=== PATIENT | male | born 1990 | race American Indian/Alaskan Native ===

== ENCOUNTER 2021-01-23 10:13 | Inpatient (IN) | payer OTHER ==
[2021-01-23] MEDS ORDERED: SODIUM CHLORIDE 0.9% 1000 ML 1,000 ML IV ONE ×3 (11:32→17:47)
[2021-01-23] MEDS ORDERED: ONDANSETRON 4 MG/2 ML INJ IV ONE (11:32)
[2021-01-23] MEDS ORDERED: cloNIDine 0.2 MG TAB PO ONE (11:51)
--- NOTE | 2021-01-23 11:55 | Emergency Department Report ---
ED General Adult HPI - General Chief complaint: High BP Stated complaint: HIGH BLOOD PRESSURE,VOMITTING,VISION,IMBALANCE Time Seen by Provider: 01/23/21 11:14 Source: patient Mode of arrival: Ambulatory Limitations: No Limitations - History of Present Illness Initial comments: Patient is a 30-year-old male presents emergency room with complaints of not feeling well for few days. He has associated nausea, vomiting, abdominal cramping. He states he is also had a mild dry cough and subjective fever. He denies any known sick contacts. He states he recently traveled to [place]. He has not been vaccinated for COVID-19. He has not been tested for COVID-19 since becoming sick. He denies any chest pain or shortness of breath patient denies any past medical history. He states he has never been diagnosed with high blood pressure. He denies any medication allergies. Severity scale (0 -10): 0 - Related Data Home Medications Medication Instructions Recorded Confirmed Last Taken No Known Home Medications [No 01/23/21 01/23/21 Unknown Reported Home Medications] Allergies Allergy/AdvReac Type Severity Reaction Status Date / Time No Known Allergies Allergy Verified 01/23/21 10:18 ED Review of Systems ROS: Stated complaint: HIGH BLOOD PRESSURE,VOMITTING,VISION,IMBALANCE Other details as noted in HPI Comment: All other systems reviewed and negative ED Past Medical Hx - Medications Home Medications: Home Medications Medication Instructions Recorded Confirmed Last Taken Type No Known Home Medications [No 01/23/21 01/23/21 Unknown History Reported Home Medications] ED Physical Exam - General Limitations: No Limitations General appearance: alert, in no apparent distress - Head Head exam: Present: atraumatic, normocephalic - Eye Eye exam: Present: normal appearance - ENT ENT exam: Present: mucous membranes moist - Respiratory Respiratory exam: Present: normal lung sounds bilaterally. Absent: respiratory distress, wheezes, rales, rhonchi, stridor, chest wall tenderness, accessory muscle use, decreased breath sounds, prolonged expiratory - Cardiovascular Cardiovascular Exam: Present: regular rate, normal rhythm, normal heart sounds. Absent: systolic murmur, diastolic murmur, rubs, gallop - GI/Abdominal GI/Abdominal exam: Present: soft, normal bowel sounds. Absent: distended, tenderness, guarding, rebound, rigid - Neurological Exam Neurological exam: Present: alert, oriented X3 - Psychiatric Psychiatric exam: Present: normal affect, normal mood - Skin Skin exam: Present: warm, dry, intact ED Course Vital Signs 01/23/21 01/23/21 01/23/21 10:19 11:36 11:42 Temperature 99.1 F 99.1 F Pulse Rate 98 H 99 H Respiratory 20 16 Rate Blood Pressure 209/150 Blood Pressure 197/136 [Right] O2 Sat by Pulse 100 99 100 Oximetry 01/23/21 01/23/21 01/23/21 12:16 14:41 14:49 Temperature 98.4 F Pulse Rate 97 H 98 H 98 H Respiratory 18 Rate Blood Pressure 198/136 208/144 Blood Pressure 208/144 [Right] O2 Sat by Pulse 100 Oximetry 01/23/21 18:37 Temperature Pulse Rate 103 H Respiratory 17 Rate Blood Pressure Blood Pressure 190/124 [Right] O2 Sat by Pulse 98 Oximetry - Consultations Consultation #1: 01/23/21 14:[address] Vaughn nephrology who advised to repeat BMP and he will consult on patient 01/23/21 16:[address] Ribera, hospitalist who will accept and resume care of patient, will admit to hospitalist service, advised to admit to telemetry ED Medical Decision Making - Lab Data Result diagrams: 01/23/21 13:43 01/23/21 14:58 Lab Results 01/23/21 01/23/21 01/23/21 Range/Units 13:43 13:43 14:58 WBC 14.2 H (4.5-11.0) K/mm3 RBC 2.44 L (3.65-5.03) M/mm3 Hgb 7.6 L (11.8-15.2) gm/dl Hct 22.6 L (35.5-45.6) % MCV 93 (84-94) fl MCH 31 (28-32) pg MCHC 34 (32-34) % RDW 16.0 H (13.2-15.2) % Plt Count 225 (140-440) K/mm3 Add Manual Diff Complete Seg Neuts % (Manual) 88 H (40.0-70.0) % Lymphocytes % (Manual) 6 L (13.4-35.0) % Monocytes % (Manual) 3 (0.0-7.3) % Eosinophils % (Manual) 2 (0.0-4.3) % Nucleated RBC % Not Reportable Seg Neutrophils # Man 12.4 H (1.8-7.7) K/mm3 Lymphocytes # (Manual) 0.8 L (1.2-5.4) K/mm3 Monocytes # (Manual) 0.4 (0.0-0.8) K/mm3 Eosinophils # (Manual) 0.2 (0.0-0.4) K/mm3 WBC Morphology Not Reportable Hypersegmented Neuts Not Reportable Hyposegmented Neuts Not Reportable Hypogranular Neuts Not Reportable Smudge Cells Not Reportable Toxic Granulation Not Reportable Toxic Vacuolation Not Reportable Dohle Bodies Not Reportable Pelger-Huet Anomaly Not Reportable Jerry Rods Not Reportable Platelet Estimate Consistent w auto Clumped Platelets Not Reportable Plt Clumps, EDTA Not Reportable Large Platelets Few Giant Platelets Not Reportable Platelet Satelliting Not Reportable Plt Morphology Comment Not Reportable RBC Morphology Not Reportable Dimorphic RBCs Not Reportable Polychromasia Not Reportable Hypochromasia Not Reportable Poikilocytosis Not Reportable Anisocytosis Not Reportable Microcytosis Not Reportable Macrocytosis Not Reportable Spherocytes Not Reportable Pappenheimer Bodies Not Reportable Sickle Cells Not Reportable Target Cells Not Reportable Tear Drop Cells Not Reportable Ovalocytes Not Reportable Helmet Cells Not Reportable [place] Bodies Not Reportable [place] Rings Not Reportable Shayna Cells Not Reportable Bite Cells Not Reportable Crenated Cell Not Reportable Elliptocytes Not Reportable Acanthocytes (Spur) Not Reportable Rouleaux Not Reportable Hemoglobin C Crystals Not Reportable Schistocytes 2+ Malaria parasites Not Reportable Humberto Bodies Not Reportable Hem Pathologist Commnt No Sodium 126 L 128 L (137-145) mmol/L Potassium 3.8 3.6 (3.6-5.0) mmol/L Chloride 79.6 L 85.8 L (98-107) mmol/L Carbon Dioxide 21 L 20 L (22-30) mmol/L Anion Gap 29 30 mmol/L BUN 144 H 143 H (9-20) mg/dL Creatinine 40.4 H 41.8 H (0.8-1.3) mg/dL Estimated GFR 2 1 ml/min BUN/Creatinine Ratio 4 3 % Glucose 112 H 127 H (75-100) mg/dL Calcium 7.8 L 7.2 L (8.4-10.2) mg/dL Total Bilirubin 0.70 (0.1-1.2) mg/dL AST 7 (5-40) units/L ALT 6 L (7-56) units/L Alkaline Phosphatase 60 (35-129) units/L Total Protein 6.5 (6.3-8.2) g/dL Albumin 3.8 L (3.9-5) g/dL Albumin/Globulin Ratio 1.4 % Lipase 131 H (13-60) units/L Vital Signs 01/23/21 01/23/21 01/23/21 10:19 11:36 11:42 Temperature 99.1 F 99.1 F Pulse Rate 98 H 99 H Respiratory 20 16 Rate Blood Pressure 209/150 Blood Pressure 197/136 [Right] O2 Sat by Pulse 100 99 100 Oximetry 01/23/21 01/23/21 01/23/21 12:16 14:41 14:49 Temperature 98.4 F Pulse Rate 97 H 98 H 98 H Respiratory 18 Rate Blood Pressure 198/136 208/144 Blood Pressure 208/144 [Right] O2 Sat by Pulse 100 Oximetry 01/23/21 18:37 Temperature Pulse Rate 103 H Respiratory 17 Rate Blood Pressure Blood Pressure 190/124 [Right] O2 Sat by Pulse 98 Oximetry - Radiology Data Radiology results: report reviewed Ordering Physician: LAYA GILMORE Date of Service: 01/23/21 Procedure(s): XR chest routine 2V Accession Number(s): [id number] cc: LAYA GILMORE Fluoro Time In Minutes: CHEST 2 VIEWS INDICATION / CLINICAL INFORMATION: cough. COMPARISON: None available. FINDINGS: SUPPORT DEVICES: None. HEART / MEDIASTINUM: No significant abnormality. LUNGS / PLEURA: No significant pulmonary or pleural abnormality. No pneumothorax. ADDITIONAL FINDINGS: No significant additional findings. IMPRESSION: 1. No acute findings. Signer Name: Josemanuel Delaney MD Signed: 01/23/2021 11:58 AM Workstation Name: [id number] Transcribed By: LUKE Dictated By: JOSEMANUEL DELANEY MD Electronically Authenticated By: JOSEMANUEL DELANEY MD Signed Date/Time: 01/23/211157 DD/ 57 TD/TT: Ordering Physician: LAYA GILMORE Date of Service: 01/23/21 Procedure(s): CT head/brain wo con Accession Number(s): [id number] cc: LAYA GILMORE CT head/brain wo con INDICATION / CLINICAL INFORMATION: 30 years Male; HTN emergency. TECHNIQUE: Routine CT head without contrast. All CT scans at this location are performed using CT dose reduction for ALARA by means of automated exposure control. COMPARISON: None. FINDINGS: BRAIN / INTRACRANIAL CONTENTS: No acute hemorrhage, mass effect, midline shift, hydrocephalus, or acute, large territorial infarct. No signs of significant atrophy or chronic infarct. No significant white matter abnormality seen. CRANIOCERVICAL JUNCTION: No significant abnormality. ORBITS: No significant abnormality of visualized orbits. SINUSES / MASTOIDS: Visualized paranasal sinuses and mastoid air cells are essentially clear. ADDITIONAL FINDINGS: None. IMPRESSION: 1. No focal mass, hemorrhage, hydrocephalus, or acute, large territorial infarct. Signer Name: Leroy Land MD, III Signed: 01/23/2021 3:21 PM Workstation Name: [id number] Transcribed By: HR Dictated By: Leroy Land MD Electronically Authenticated By: Leroy Land MD Signed Date/Time: 01/23/21 152 DD/ 151 TD/TT: Ordering Physician: LAYA GILMORE Date of Service: 01/23/21 Procedure(s): CT abdomen pelvis wo con Accession Number(s): [id number] cc: LAYA GILMORE CT ABDOMEN AND PELVIS WITHOUT CONTRAST HISTORY: Abdominal pain, nausea and vomiting, anemia, leukocytosis.. COMPARISON: None. TECHNIQUE: CT images of the abdomen and pelvis were obtained without administration of intravenous contrast. All CT scans at this location are performed using CT dose reduction for ALARA by means of automated exposure control. FINDINGS: Limited evaluation of the lung bases shows faint densities in the right lung base, possibly infectious. There is a trace amount of fluid in the right paracolic gutter. This is most pronounced near the hepatic flexure. Questionable pericolonic fluid stranding is noted in this region and the appearance may represent some degree of colitis, possibly due to infectious or inflammatory change. No evidence of free intraperitoneal gas. Mild anasarca within the mesenteric fat and to a lesser extent subcutaneous tissues of the abdomen. The pancreas is poorly defined and appears edematous, particularly the pancreatic head. Although, this is poorly evaluated on noncontrast exam. The liver, kidneys, spleen, adrenal glands, and gallbladder are unremarkable. The appendix is visualized and is normal in appearance. Urinary bladder is largely collapsed which limits evaluation, however there appears to be circumferential urinary bladder wall thickening.. Osseous structures show no evidence of acute fracture or aggressive osseous destructive lesion. The lack of intravenous and oral contrast limits evaluation of solid parenchymal organs, vasculature, and gastrointestinal tract. IMPRESSION: The pancreas appears poorly defined and mildly edematous in appearance, p articularly the pancreatic head. This is not well evaluated on noncontrast exam. Recommend clinical correlation with any f indings of pancreatitis with consideration for repeat CT with IV contrast if clinically indicated. Trace amount of fluid in the right pericolic gutter near the hepatic flexure. This may be reactive due to the aforementioned pancreatic changes. Some degree of colitis, possibly due to infectious or inflammatory change may be present as well. No distended loops of intestines to suggest obstruction. Faint airspace disease in the right lung base is concerning for infection. Suspected circumferential wall thickening of the urinary bladder, possibly representing cystitis. Signer Name: Josemanuel Delaney MD Signed: 01/23/2021 3:28 PM Workstation Name: [id number] Transcribed By: LUKE Dictated By: JOSEMANUEL DELANEY MD Electronically Authenticated By: JOSEMANUEL DELANEY MD Signed Date/Time: 01/23/21 1528 DD/ 1520 TD/TT: - Medical Decision Making Patient is a 30-year-old male presents emergency room with complaints of not feeling well for few days. He has associated nausea, vomiting, abdominal cramping. He states he is also had a mild dry cough and subjective fever. He denies any known sick contacts. He states he recently traveled to [place]. He has not been vaccinated for COVID-19. He has not been tested for COVID-19 since becoming sick. He denies any chest pain or shortness of breath patient denies any past medical history. He states he has never been diagnosed with high blood pressure. He denies any medication allergies. Initial vitals are significant for elevated blood pressure. Patient initially given p.o. clonidine but had vomiting shortly after and was unable to tolerate it. Nurse had difficulty obtaining IV line, IV nurse was consulted to place line. IV was obtained and patient was given IV fluids, nausea medication, IV antihypertensive. Lab significant for leukocytosis at 14.2, anemia with hemoglobin of 7.6 and hematocrit of 22.6, hyponatremia at 128, anion gap of 30, creatinine of 41.8, BUN of 144, GFR of 1, hypoglycemia at 7 and lipase at 131. Chest x-ray 1. No acute findings. CT head due to hypertensive emergency 1. No focal mass, hemorrhage, hydrocephalus, or acute, large territorial infarct. CT abdomen pelvis without contrast The pancreas appears poorly defined and mildly edematous in appearance, particularly the pancreatichead. This is not well evaluated on noncontrast exam. Recommend clinical correlation with any findings of pancreatitis with consideration for repeat CT with IV contrast if clinically indicated. Trace amount of fluid in the right pericolic gutter near the hepatic flexure. This may be reactive due to the aforementioned pancreatic changes. Some degree of colitis, possibly due to infectious or inflammatory change may be present as well. No distended loops of intestines to suggest obstruction. Faint airspace disease in the right lung base is concerning for infection. Suspected circumferential wall thickening of the urinary bladder, possibly representing cystitis. Patient given 2 g IV ceftriaxone to cover for PNA and cystitis. Spoke to Dr. Vaughn nephrology who advised to repeat BMP and he will consult on patient. Repeat BMP confirms diagnosis.Spoke to Dr. Ribera, hospitalist who will accept and resume care of patient, will admit to hospitalist service, advised to admit to telemetry. Discussed case with Dr. Kraft, ER attending who is agreeable with plan. Discussed findings with patient who is agreeable with admission. Critical Care Time: Yes Critical care time in (mins) excluding proc time.: 35 Critical care attestation.: If time is entered above; I have spent that time in minutes in the direct care of this critically ill patient, excluding procedure time. Critical Care Time: Critical care time includes interpretation of laboratory and diagnostic studies, consultations, reexaminations ED Disposition Clinical Impression: Hypertensive emergency, Hyponatremia, Hypocalcemia Abdominal pain Qualifiers: Abdominal location: generalized Qualified Code(s): R10.84 - Generalized abdominal pain Nausea & vomiting Qualifiers: Vomiting type: unspecified Qualified Code(s): R11.2 - Nausea with vomiting, unspecified Acute renal failure Qualifiers: Acute renal failure type: unspecified Qualified Code(s): N17.9 - Acute kidney failure, unspecified Leukocytosis Qualifiers: Leukocytosis type: unspecified Qualified Code(s): D72.829 - Elevated white blood cell count, unspecified Anemia Qualifiers: Anemia type: unspecified type Qualified Code(s): D64.9 - Anemia, unspecified Pancreatitis Qualifiers: Chronicity: acute Pancreatitis type: unspecified pancreatitis type Acute pancreatitis complication: unspecified Qualified Code(s): K85.90 - Acute pancreatitis without necrosis or infection, unspecified Pneumonia Qualifiers: Pneumonia type: due to unspecified organism Laterality: right Lung location: lower lobe of lung Qualified Code(s): J18.9 - Pneumonia, unspecified organism Disposition: 09 ADMITTED INPATIENT Is pt being admited?: Yes Does the pt Need Aspirin: No Condition: Serious Time of Disposition: 16:45
--- NOTE | 2021-01-23 12:03 | XRay Report ---
CHEST 2 VIEWS INDICATION / CLINICAL INFORMATION: cough. COMPARISON: None available. FINDINGS: SUPPORT DEVICES: None. HEART / MEDIASTINUM: No significant abnormality. LUNGS / PLEURA: No significant pulmonary or pleural abnormality. No pneumothorax. ADDITIONAL FINDINGS: No significant additional findings. IMPRESSION: 1. No acute findings. Signer Name: Josemanuel Smith MD Signed: 01/23/2021 11:58 AM Workstation Name: [id number]
[2021-01-23 14:19] LABS: Hematocrit 22.6 % (35.5-45.6); Hemoglobin 7.6 gm/dl (11.8-15.2); Mean Corpuscular HGB Conc 34 % (32-34); Mean Corpuscular Volume 93 fl (84-94); Platelet Count 225 K/mm3 (140-440); Red Blood Count 2.44 M/mm3 (3.65-5.03)
[2021-01-23 14:30] LABS: Albumin 3.8 g/dL (3.9-5); Calcium 7.8 mg/dL (8.4-10.2)
--- NOTE | 2021-01-23 15:25 | Cat Scan Report ---
CT head/brain wo con INDICATION / CLINICAL INFORMATION: 30 years Male; HTN emergency. TECHNIQUE: Routine CT head without contrast. All CT scans at this location are performed using CT dos e reduction for ALARA by means of automated exposure control. COMPARISON: None. FINDINGS: BRAIN / INTRACRANIAL CONTENTS: No acute hemorrhage, mass effect, midline shift, hydrocephalus, or acu te, large territorial infarct. No signs of significant atrophy or chronic infarct. No significant whi te matter abnormality seen. CRANIOCERVICAL JUNCTION: No significant abnormality. ORBITS: No significant abnormality of visualized orbits. SINUSES / MASTOIDS: Visualized paranasal sinuses and mastoid air cells are essentially clear. ADDITIONAL FINDINGS: None. IMPRESSION: 1. No focal mass, hemorrhage, hydrocephalus, or acute, large territorial infarct. Signer Name: Leroy Land MD, III Signed: 01/23/2021 3:21 PM Workstation Name: [id number]
[2021-01-23 15:33] LABS: Calcium 7.2 mg/dL (8.4-10.2)
--- NOTE | 2021-01-23 15:33 | Cat Scan Report ---
CT ABDOMEN AND PELVIS WITHOUT CONTRAST HISTORY: Abdominal pain, nausea and vomiting, anemia, leukocytosis.. COMPARISON: None. TECHNIQUE: CT images of the abdomen and pelvis were obtained without administration of intravenous co ntrast. All CT scans at this location are performed using CT dose reduction for ALARA by means of au tomated exposure control. FINDINGS: Limited evaluation of the lung bases shows faint densities in the right lung base, possibly infectiou s. There is a trace amount of fluid in the right paracolic gutter. This is most pronounced near the hepa tic flexure. Questionable pericolonic fluid stranding is noted in this region and the appearance may represent some degree of colitis, possibly due to infectious or inflammatory change. No evidence of f ree intraperitoneal gas. Mild anasarca within the mesenteric fat and to a lesser extent subcutaneous tissues of the abdomen. The pancreas is poorly defined and appears edematous, particularly the pancreatic head. Although, thi s is poorly evaluated on noncontrast exam. The liver, kidneys, spleen, adrenal glands, and gallbladder are unremarkable. The appendix is visuali zed and is normal in appearance. Urinary bladder is largely collapsed which limits evaluation, howeve r there appears to be circumferential urinary bladder wall thickening.. Osseous structures show no evidence of acute fracture or aggressive osseous destructive lesion. The lack of intravenous and oral contrast limits evaluation of solid parenchymal organs, vasculature, and gastrointestinal tract. IMPRESSION: The pancreas appears poorly defined and mildly edematous in appearance, particularly the pancreatic h ead. This is not well evaluated on noncontrast exam. Recommend clinical correlation with any findings of pancreatitis with consideration for repeat CT with IV contrast if clinically indicated. Trace amount of fluid in the right pericolic gutter near the hepatic flexure. This may be reactive du e to the aforementioned pancreatic changes. Some degree of colitis, possibly due to infectious or inf lammatory change may be present as well. No distended loops of intestines to suggest obstruction. Faint airspace disease in the right lung base is concerning for infection. Suspected circumferential wall thickening of the urinary bladder, possibly representing cystitis. Signer Name: Josemanuel Smith MD Signed: 01/23/2021 3:28 PM Workstation Name: [id number]
--- NOTE | 2021-01-23 15:40 | Consultation ---
History of Present Illness - Reason for Consult Consult date: 01/23/21 acute renal failure - History of Present Illness This is a 30 year old male who presents to the E.R with a chief complaint of nausea, vomiting, abdominal cramping and fever for couple days. 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 CT scan of Abdomen showed questionable pancreatitis and colitis. Pertinent labs revealed an elevated serum creatinine of 40.4 and BUN of 144 on admission. Repeat labs are pending. Baseline serum creatinine unknown. States he is not aware of having any prior renal disease. Patient noted to also be in Hypertensive urgency with SBP in the 190's-200's. We are being consulted for management of this patient's Acute Renal Failure possible CKD. Past History Past Medical History: hypertension Past Surgical History: No surgical history Social history: no significant social history Family history: no significant family history Medications and Allergies Allergies Allergy/AdvReac Type Severity Reaction Status Date / Time No Known Allergies Allergy Verified 01/23/21 10:18 Home Medications Medication Instructions Recorded Confirmed Last Taken Type No Known Home Medications [No 01/23/21 01/23/21 Unknown History Reported Home Medications] Active Meds: Active Medications Sodium Chloride (Nacl 0.9% 1000 Ml) 1,000 mls @ 999 mls/hr IV BOLUS ONE Stop: 01/23/21 15:53 Review of Systems Constitutional: fever, fatigue, no weight loss, no weight gain, no chills, no sweats, no weakness, no malaise Ears, nose, mouth and throat: no ear pain, no ear discharge, no tinnitis, no decreased hearing, no nose pain, no nasal congestion Cardiovascular: no chest pain, no orthopnea, no palpitations, no rapid/irregular heart beat, no edema, no syncope, no lightheadedness Respiratory: no cough with sputum, no hemoptysis, no shortness of breath, no dyspnea on exertion Gastrointestinal: abdominal pain, nausea, vomiting, no diarrhea, no constipation, no change in bowel habits, no hematemesis, no coffee ground emesis Genitourinary Male: no hematuria, no flank pain, no discharge, no urinary frequency, no urinary hesitancy Rectal: no pain, no incontinence, no bleeding Musculoskeletal: no neck pain, no shooting arm pain, no arm numbness/tingling, no low back pain, no shooting leg pain, no leg numbness/tingling Integumentary: no rash, no pruritis, no redness, no sores, no wounds Neurological: no head injury, no transient paralysis, no paralysis, no weakness, no parathesias, no numbness, no tingling Psychiatric: no anxiety, no memory loss, no change in sleep habits, no sleep disturbances, no insomnia, no hypersomnia Endocrine: no cold intolerance, no heat intolerance, no polyphagia, no excessive thirst, no polydipsia, no polyuria Hematologic/Lymphatic: no easy bruising, no easy bleeding, no lymphadenopathy, no lymphedema Exam - Vital Signs Vital signs: Vital Signs Temp Pulse Resp BP Pulse Ox 99.1 F 98 H 20 209/150 100 01/23/21 10:19 01/23/21 10:19 01/23/21 10:19 01/23/21 10:19 01/23/21 10:19 - General Appearance General appearance: well-developed, appears stated age EENT: ATNC, PERRL, hearing intact, vision intact Neck: Present: neck supple Respiratory: Decreased Breath Sounds Heart: S1S2 Gastrointestinal: Present: normoactive bowel sounds Integumentary: warm and dry Neurologic: alert and oriented x3 Musculoskeletal: Present: other (No edema) Results - Lab Results 01/23/21 13:43 01/23/21 14:58 Most recent lab results Calcium 7.2 mg/dL (8.4-10.2) L 01/23/21 14:58 Assessment and Plan Assessment: Acute Renal Failure secondary to Ischemic ATN vs Prerenal Uncontrolled Hypertension Nausea/Vomiting/ Abdominal Pain Questionable Pancreatitis and Colitis Leukocytosis Hyponatremia Plan: Renal labs done early this morning showed serum creatinine 40.4 and BUN 144, rep eat labs are pending Baseline serum creatinine unknown CXR is clear Start NS@ 75 ml/hr Obtain renal ultrasound to rule out obstruction Obtain urine lytes, protein and eosinophils Hypertension- start oral anti-hypertensive agents when taking po intake IV anti-hypertensive agents as needed Obtain daily weights Monitor I/O's daily Renally dose medications Avoid nephrotoxic agents Continue to monitor renal function closely Plan of care reviewed by Dr. Cunningham
[2021-01-23] MEDS ORDERED: cefTRIAXone/NS 2 GM/100 ML 2 GM/100 ML BAG IV ONE (15:57)
[2021-01-23 16:45] LABS: Eosinophils % (Manual) 2 % (0.0-4.3); Monocytes % (Manual) 3 % (0.0-7.3); Schistocytes 2+
[2021-01-23] MEDS ORDERED: SODIUM CHLORIDE 0.9% 1000 ML 1,000 ML IV SCH (16:45)
[2021-01-23 16:46] LABS: Large Platelets Few; Platelet Estimate Consistent w Auto
[2021-01-23] MEDS ORDERED: ONDANSETRON 4 MG/2 ML INJ IV PRN (17:40)
[2021-01-23] MEDS ORDERED: METOCLOPRAMIDE 10 MG/2 ML INJ IV PRN (17:40)
[2021-01-23] MEDS ORDERED: ACETAMINOPHEN 325 MG TAB PO PRN (17:40)
[2021-01-23] MEDS ORDERED: NIFEdipine XL 60 MG TAB PO ONE (17:55)
--- NOTE | 2021-01-23 18:06 | History and Physical Report ---
History of Present Illness Date of examination: 01/23/21 Date of admission: 01/23/2021 Chief complaint: Nausea vomiting and abdominal pain for 3 to 4 days. Generalized weakness for more than a week. History of present illness: 30-year-old male with no significant past medical history comes in for nausea vomiting and abdominal cramps for 3 to 4 days. Also decreased urination. Generalized weakness for more than a week. No exposure to any sick contacts. Patient is not vaccinated with Covid. Patient went to [place] recently. Denies any chest pain or shortness of breath. No Covid test done recently. No medications or medication allergies. Not a known hypertensive. No fever or chills. Patient is a poor historian. No history of hypertension. Last physical was done in 2014. No follow-up with any physician for the last 6 years. Past History Past Medical History: hypertension Past Surgical History: No surgical history Social history: no significant social history Family history: hypertension Medications and Allergies Allergies Allergy/AdvReac Type Severity Reaction Status Date / Time No Known Allergies Allergy Verified 01/23/21 10:18 Home Medications Medication Instructions Recorded Confirmed Last Taken Type No Known Home Medications [No 01/23/21 01/23/21 Unknown History Reported Home Medications] Active Meds: Active Medications Sodium Chloride (Nacl 0.9% 1000 Ml) 1,000 mls @ 75 mls/hr IV DIRECT SYDNIE Review of Systems All systems: negative Constitutional: anorexia, fatigue, weakness, malaise, lethargy, poor appetite, no fever, no chills Ears, nose, mouth and throat: no ear pain, no ear discharge, no tinnitis, no decreased hearing, no nose pain, no nasal congestion Cardiovascular: shortness of breath, dyspnea on exertion, no chest pain, no orthopnea, no palpitations, no rapid/irregular heart beat, no edema, no syncope, no lightheadedness Respiratory: shortness of breath, dyspnea on exertion, no cough, no cough with sputum, no excessive sputum, no hemoptysis Gastrointestinal: abdominal pain, nausea, vomiting, no diarrhea, no constipation, no change in bowel habits, no hematemesis, no coffee ground emesis Genitourinary Male: other (Decreased urination), no dysuria, no hematuria, no flank pain, no discharge, no urinary frequency, no urinary hesitancy, no nocturia, no incontinence, no erectile dysfunction, no genital pain Rectal: no pain, no incontinence, no bleeding Musculoskeletal: no neck stiffness, no neck pain, no shooting arm pain, no arm numbness/tingling, no low back pain, no shooting leg pain, no leg numbness/tingling, no redness of joints Integumentary: no rash, no pruritis, no redness, no sores, no wounds, no jaundice, no boils, no blisters Neurological: no head injury, no transient paralysis, no paralysis, no weakness, no parathesias, no numbness, no tingling, no seizures, no syncope, no tremors, no ataxia, no lack of coordination Psychiatric: no anxiety, no memory loss, no change in sleep habits, no sleep disturbances, no insomnia, no hypersomnia, no change in appetite, no change in libido, no suicidal ideation, no disorientation, no hallucinations Endocrine: no cold intolerance, no heat intolerance, no polyphagia, no excessive thirst Hematologic/Lymphatic: no easy bruising, no easy bleeding Allergic/Immunologic: no urticaria, no allergic rhinitis, no wheezing Exam - Constitutional Vitals: Temp Pulse Resp BP Pulse Ox 98.4 F 98 H 18 208/144 100 01/23/21 14:41 01/23/21 14:49 01/23/21 14:41 01/23/21 14:49 01/23/21 14:41 General appearance: Present: mild distress, well-nourished - EENT Eyes: Present: PERRL ENT: hearing intact, clear oral mucosa - Neck Neck: Present: supple, normal ROM - Respiratory Respiratory effort: normal Respiratory: bilateral: CTA - Cardiovascular Heart rate: 90 Rhythm: regular Heart Sounds: Present: S1 & S2. Absent: rub, click - Extremities Extremities: no ischemia, pulses intact, pulses symmetrical, No edema Peripheral Pulses: within normal limits - Abdominal General gastrointestinal: Present: soft, non-tender, non-distended, normal bowel sounds Male genitourinary: Present: normal - Rectal Rectal Exam: deferred - Integumentary Integumentary: Present: clear, warm, dry - Musculoskeletal Musculoskeletal: gait normal, strength equal bilaterally - Psychiatric Psychiatric: appropriate mood/affect, intact judgment & insight - Neurologic Neurologic: CNII-XII intact, moves all extremities - Allied Health Allied health notes reviewed: nursing HEART Score - HEART Score History: Slightly suspicious EKG: Normal Age: < 45 Risk factors: 1-2 risk factors Troponin: < normal limit HEART Score: 1 - Critical Actions Critical Actions: 0-3 pts:0.9-1.7%risk of adverse cardiac event.Candidate for discharge Results - Labs CBC & Chem 7: 01/23/21 13:43 01/23/21 14:58 Labs: Laboratory Last Values WBC 14.2 K/mm3 (4.5-11.0) H 01/23/21 13:43 RBC 2.44 M/mm3 (3.65-5.03) L 01/23/21 13:43 Hgb 7.6 gm/dl (11.8-15.2) L 01/23/21 13:43 Hct 22.6 % (35.5-45.6) L 01/23/21 13:43 MCV 93 fl (84-94) 01/23/21 13:43 MCH 31 pg (28-32) 01/23/21 13:43 MCHC 34 % (32-34) 01/23/21 13:43 RDW 16.0 % (13.2-15.2) H 01/23/21 13:43 Plt Count 225 K/mm3 (140-440) 01/23/21 13:43 Add Manual Diff Complete 01/23/21 13:43 Seg Neuts % (Manual) 88 % (40.0-70.0) H 01/23/21 13:43 Lymphocytes % (Manual) 6 % (13.4-35.0) L 01/23/21 13:43 Monocytes % (Manual) 3 % (0.0-7.3) 01/23/21 13:43 Eosinophils % (Manual) 2 % (0.0-4.3) 01/23/21 13:43 Nucleated RBC % Not Reportable 01/23/21 13:43 Seg Neutrophils # Man 12.4 K/mm3 (1.8-7.7) H 01/23/21 13:43 Lymphocytes # (Manual) 0.8 K/mm3 (1.2-5.4) L 01/23/21 13:43 Monocytes # (Manual) 0.4 K/mm3 (0.0-0.8) 01/23/21 13:43 Eosinophils # (Manual) 0.2 K/mm3 (0.0-0.4) 01/23/21 13:43 WBC Morphology Not Reportable 01/23/21 13:43 Hypersegmented Neuts Not Reportable 01/23/21 13:43 Hyposegmented Neuts Not Reportable 01/23/21 13:43 Hypogranular Neuts Not Reportable 01/23/21 13:43 Smudge Cells Not Reportable 01/23/21 13:43 Toxic Granulation Not Reportable 01/23/21 13:43 Toxic Vacuolation Not Reportable 01/23/21 13:43 Dohle Bodies Not Reportable 01/23/21 13:43 Pelger-Huet Anomaly Not Reportable 01/23/21 13:43 Jerry Rods Not Reportable 01/23/21 13:43 Platelet Estimate Consistent w auto 01/23/21 13:43 Clumped Platelets Not Reportable 01/23/21 13:43 Plt Clumps, EDTA Not Reportable 01/23/21 13:43 Large Platelets Few 01/23/21 13:43 Giant Platelets Not Reportable 01/23/21 13:43 Platelet Satelliting Not Reportable 01/23/21 13:43 Plt Morphology Comment Not Reportable 01/23/21 13:43 RBC Morphology Not Reportable 01/23/21 13:43 Dimorphic RBCs Not Reportable 01/23/21 13:43 Polychromasia Not Reportable 01/23/21 13:43 Hypochromasia Not Reportable 01/23/21 13:43 Poikilocytosis Not Reportable 01/23/21 13:43 Anisocytosis Not Reportable 01/23/21 13:43 Microcytosis Not Reportable 01/23/21 13:43 Macrocytosis Not Reportable 01/23/21 13:43 Spherocytes Not Reportable 01/23/21 13:43 Pappenheimer Bodies Not Reportable 01/23/21 13:43 Sickle Cells Not Reportable 01/23/21 13:43 Target Cells Not Reportable 01/23/21 13:43 Tear Drop Cells Not Reportable 01/23/21 13:43 Ovalocytes Not Reportable 01/23/21 13:43 Helmet Cells Not Reportable 01/23/21 13:43 [place] Bodies Not Reportable 01/23/21 13:43 [place] Rings Not Reportable 01/23/21 13:43 [place] Cells Not Reportable 01/23/21 13:43 Bite Cells Not Reportable 01/23/21 13:43 Crenated Cell Not Reportable 01/23/21 13:43 Elliptocytes Not Reportable 01/23/21 13:43 Acanthocytes (Spur) Not Reportable 01/23/21 13:43 Rouleaux Not Reportable 01/23/21 13:43 Hemoglobin C Crystals Not Reportable 01/23/21 13:43 Schistocytes 2+ 01/23/21 13:43 Malaria parasites Not Reportable 01/23/21 13:43 Humberto Bodies Not Reportable 01/23/21 13:43 Hem Pathologist Commnt No 01/23/21 13:43 Sodium 128 mmol/L (137-145) L 01/23/21 14:58 Potassium 3.6 mmol/L (3.6-5.0) 01/23/21 14:58 Chloride 85.8 mmol/L (98-107) L 01/23/21 14:58 Carbon Dioxide 20 mmol/L (22-30) L 01/23/21 14:58 Anion Gap 30 mmol/L 01/23/21 14:58 BUN 143 mg/dL (9-20) H 01/23/21 14:58 Creatinine 41.8 mg/dL (0.8-1.3) H 01/23/21 14:58 Estimated GFR 1 ml/min 01/23/21 14:58 BUN/Creatinine Ratio 3 % 01/23/21 14:58 Glucose 127 mg/dL (75-100) H 01/23/21 14:58 Calcium 7.2 mg/dL (8.4-10.2) L 01/23/21 14:58 Total Bilirubin 0.70 mg/dL (0.1-1.2) 01/23/21 13:43 AST 7 units/L (5-40) 01/23/21 13:43 ALT 6 units/L (7-56) L 01/23/21 13:43 Alkaline Phosphatase 60 units/L (35-129) 01/23/21 13:43 Total Protein 6.5 g/dL (6.3-8.2) 01/23/21 13:43 Albumin 3.8 g/dL (3.9-5) L 01/23/21 13:43 Albumin/Globulin Ratio 1.4 % 01/23/21 13:43 Lipase 131 units/L (13-60) H 01/23/21 13:43 - Imaging and Cardiology EKG: report reviewed Imaging and Cardiology: Chest CT The pancreas appears poorly defined and mildly edematous in appearance particularly the pancreatic head. This is not well evaluated on: Noncontrast exam. Will recommend clinical correlation with any findings of pancreatitis with consideration for repeat CT with IV contrast if clinically indicated Trace amount of fluid in the right pericolic gutter near the hepatic flexure This may be reactive due to the aforementioned pancreatic changes Some degree of colitis possibly due to infectious or inflammatory change may be present as well No distended loops of intestine to suggest of obstruction Faint airspace disease in the right lung bases concerning for infection Suspected circumferential wall thickening of the urinary bladder possibly representing cystitis Chest x-ray No acute findings Assessment and Plan Advance Directives: Yes (Full code) VTE prophylaxis?: Chemical Plan of care discussed with patient/family: Yes - Patient Problems (1) Hypertensive emergency Current Visit: Yes Status: Acute Plan to address problem: Patient does not have any history of hypertension. Patient initiated on hydralazine 50 every 8, Coreg twice a day at 12.5 mg and Procardia XL 60 mg once a day. Also IV hydralazine 10 mg every 3 as needed (2) MOHINDER (acute kidney injury) Current Visit: Yes Status: Acute Plan to address problem: Possible ATN versus chronic kidney disease resulting in end-stage renal disease IV fluids for now IV normal saline bolus given and continue normal saline at 75 mill per hour Recheck creatinine level (3) Hyponatremia Current Visit: Yes Status: Acute Plan to address problem: Probably dilutional (4) Anemia Current Visit: Yes Status: Chronic Qualifiers: Anemia type: due to chronic kidney disease Chronic kidney disease stage: stage 5, not on chronic dialysis Qualified Code(s): N18.5 - Chronic kidney disease, stage 5; D63.1 - Anemia in chronic kidney disease Plan to address problem: Probably ATN versus stage V chronic kidney disease May need Epogen Will defer to nephrology (5) DVT prophylaxis Current Visit: Yes Status: Acute Plan to address problem: On heparin and GI prophylaxis
[2021-01-23] MEDS: hydrALAZINE 25 MG TAB PO SCH ×2 (18:47→22:06)
[2021-01-23] MEDS: HYDROmorphone 1 MG/1 ML INJ IV PRN (22:07)
[2021-01-23] MEDS: cefTRIAXone/NS 1 GM/50 ML 1 GM/50 ML BAG IV SCH (22:19)
[2021-01-23] MEDS: hydrALAZINE 20 MG/1 ML INJ IV PRN (22:22)
[2021-01-24] MEDS: carvediloL 12.5 MG TAB PO SCH ×3 (02:20→21:50)
[2021-01-24] MEDS: HYDROmorphone 1 MG/1 ML INJ IV PRN ×3 (04:54→15:19)
[2021-01-24 05:30] LABS: Hematocrit 21.6 % (35.5-45.6); Hemoglobin 7.1 gm/dl (11.8-15.2); Mean Corpuscular HGB Conc 33 % (32-34); Mean Corpuscular Volume 94 fl (84-94); Platelet Count 194 K/mm3 (140-440); Red Blood Count 2.31 M/mm3 (3.65-5.03); Red Cell Distribution Width 16.2 % (13.2-15.2)
[2021-01-24] MEDS: hydrALAZINE 20 MG/1 ML INJ IV PRN ×2 (06:13→10:37)
[2021-01-24] MEDS: hydrALAZINE 25 MG TAB PO SCH ×3 (06:27→21:49)
[2021-01-24 07:04] LABS: Total Cells Counted 100
[2021-01-24 07:05] LABS: Hypochromasia Few; Platelet Estimate Consistent w Auto; Schistocytes 2+
--- NOTE | 2021-01-24 09:23 | Ultrasound Report ---
ULTRASOUND RENAL INDICATION / CLINICAL INFORMATION: renal failure. COMPARISON: CT scan dated 01/23/2021 FINDINGS: RIGHT KIDNEY: Length = 10.8 cm. - Echogenicity: Significantly increased - Cortical Thickness: Normal. - Hydronephrosis: None. - Cyst / Mass: None. - Stones: None seen. LEFT KIDNEY: Length = 11.4 cm. - Echogenicity: Significantly increased - Cortical Thickness: Normal. - Hydronephrosis: None. - Cyst / Mass: None. - Stones: None seen. URINARY BLADDER: No significant abnormality. FREE FLUID: None. ADDITIONAL FINDINGS: None. IMPRESSION: 1. Kidneys are echogenic which can be seen with medical renal disease. There is no hydronephrosis. No focal renal lesions are seen. Signer Name: Ron Washington MD Signed: 01/24/2021 9:18 AM Workstation Name: [id number]
--- NOTE | 2021-01-24 10:38 | Progress Note ---
Assessment and Plan Assessment: Acute Renal Failure secondary to Ischemic ATN vs Prerenal vs CKD stage 5 from Hypertensive Nephrosclerosis Uncontrolled Hypertension Nausea/Vomiting/ Abdominal Pain Questionable Pancreatitis and Colitis Leukocytosis Hyponatremia Hyperphosphatemia Anemia Plan: Renal labs reviewed. Serum creatinine 41.8 today and BUN is 155, yesterday's serum creatinine was 40.4 and BUN 144 Baseline serum creatinine unknown Renal Ultrasound shows- Medical renal disease. No Hydronephrosis Patient's renal function did not respond to IV hydration. Given his history of uncontrolled Hypertension, patient may likely have CKD stage 5 from Hypertensive Nephrosclerosis as renal ultrasound shows CKD changes to kidneys. Also phosphorus is elevated. Will check PTH levels. Given severe renal failure, we are recommending hemodialysis initiation for UF and clearance. Risks and benefits of hemodialysis explained to patient. Patient consented/agreed to hemodialysis inititation. His brother Dustin Aguilar was at bedside present for conversation. All questions answered. Vascular surgeon-Dr. Solitario consulted for perm-cath placement For further work-up, ordered ALAN, ANCA, Hep panel, C3, C4, Ch50, Anti-GBM, SPEP, serum free light chains CXR is clear On NS@ 75 ml/hr, will D/C now given Hypertension and plan to start on HD Urine lytes, protein and eosinophils-pending Hyperphosphatemia-Start Calcium Acetate 1300 mg po TID Anemia-Ordered iron and ferritin levels. May need LORNA. Obtain daily weights Monitor I/O's daily Renally dose medications Avoid nephrotoxic agents Assess dialysis needs daily Plan of care reviewed by Dr. Vaughn Subjective Date of service: 01/24/21 Principal diagnosis: Severe Renal Failure Interval history: Patient seen lying in bed. Brother Dustin Aguilar was at bedside. Objective - Vital Signs Vital signs: Vital Signs - 12hr 01/23/21 01/24/21 01/24/21 22:42 06:13 06:22 Pulse Rate 101 H 87 87 Respiratory 17 17 Rate Blood Pressure 179/111 189/114 Blood Pressure 191/123 [Right] O2 Sat by Pulse 100 96 Oximetry 01/24/21 01/24/21 01/24/21 06:27 06:30 06:46 Pulse Rate 82 90 90 Respiratory 14 17 Rate Blood Pressure 189/114 189/114 189/114 Blood Pressure [Right] O2 Sat by Pulse 96 96 Oximetry 01/24/21 01/24/2121 07:00 08:07 08:30 Pulse Rate 89 Respiratory 14 Rate Blood Pressure 185/101 188/105 228/126 Blood Pressure [Right] O2 Sat by Pulse 97 92 100 Oximetry 01/24/21 01/24/21 01/24/21 09:00 09:30 10:00 Pulse Rate Respiratory Rate Blood Pressure 230/133 224/134 213/123 Blood Pressure [Right] O2 Sat by Pulse 100 99 92 Oximetry - General Appearance General appearance: well-developed, appears stated age EENT: ATNC, PERRL, hearing intact, vision intact Neck: no JVD, supple Respiratory: Present: Decreased Breath Sounds Cardiology: S1S2 Gastrointestinal: normoactive bowel sounds Integumentary: warm and dry Neurologic: alert and oriented x3 Musculoskeletal: other (No edema) - Lab 01/24/21 04:52 01/24/21 04:52 Most recent lab results Calcium 7.0 mg/dL (8.4-10.2) L 01/24/21 04:52 Phosphorus 11.40 mg/dL (2.5-4.5) H 01/24/21 04:52 Medications & Allergies - Medications Allergies/Adverse Reactions: Allergies No Known Allergies Allergy (Verified 01/23/21 10:18) Home Medications: Home Medications Medication Instructions Recorded Confirmed Last Taken Type No Known Home Medications [No 01/23/21 01/23/21 Unknown History Reported Home Medications] Active Medications: Generic Name Dose Route Start Last Admin Trade Name Freq PRN Reason Stop Dose Admin Acetaminophen 650 mg 01/23/21 17:40 Acetaminophen 325 Mg Tab PO Q4H PRN Pain MILD(1-3)/Fever >100.5/ESCAMILLA Carvedilol 12.5 mg 01/23/21 22:00 01/24/21 02:20 Carvedilol 12.5 Mg Tab PO 12.5 mg BID SYDNIE Administration Hydralazine HCl 50 mg 01/23/21 18:00 01/24/21 06:27 Hydralazine 25 Mg Tab PO 50 mg Q8HR SYDNIE Administration Hydralazine HCl 10 mg 01/23/21 18:00 01/24/21 06:13 Hydralazine 20 Mg/1 Ml Inj IV 10 mg Q3H PRN Administration Blood Pressure Hydromorphone HCl 0.5 mg 01/23/21 17:40 01/24/21 08:42 Hydromorphone 1 Mg/1 Ml Inj IV 0.5 mg Q3H PRN Administration Pain , Severe (7-10) Sodium Chloride 1,000 mls @ 75 mls/hr 01/23/21 16:45 Nacl 0.9% 1000 Ml IV DIRECT SYDNIE Ceftriaxone Sodium 1 gm in 50 mls @ 100 mls/hr 01/23/21 19:00 01/23/21 22:19 Rocephin/Ns 1 Gm/50 Ml IV 100 mls/hr Q24H SYDNIE Administration Protocol Metoclopramide HCl 10 mg 01/23/21 17:40 Metoclopramide 10 Mg/2 Ml Inj IV Q6H PRN Nausea And Vomiting Nifedipine 60 mg 01/24/21 10:00 Nifedipine Xl 60 Mg Tab PO Q12HR SYDNIE Ondansetron HCl 4 mg 01/23/21 17:40 Ondansetron 4 Mg/2 Ml Inj IV Q3H PRN Nausea And Vomiting Oxycodone/Acetaminophen 1 tab 01/23/21 17:40 Oxycodone /Acetaminophen 5-325mg Tab PO Q6H PRN Pain, Moderate (4-6) Sevelamer Carbonate 2,400 mg 01/24/21 11:30 Sevelamer Carbonate 800 Mg Tab PO AC SYDNIE Sodium Chloride 10 ml 01/23/21 22:00 01/23/21 22:20 Sodium Chloride 0.9% 10 Ml Flush Syringe IV 10 ml BID SYDNIE Administration Sodium Chloride 10 ml 01/23/21 17:40 Sodium Chloride 0.9% 10 Ml Flush Syringe IV PRN PRN LINE FLUSH
[2021-01-24] MEDS ORDERED: SEVELAMER CARBONATE 800 MG TAB PO SCH (11:30)
[2021-01-24] MEDS: NIFEdipine XL 60 MG TAB PO SCH ×2 (11:42→21:49)
[2021-01-24] MEDS: CALCIUM ACETATE 667 MG CAP PO SCH (14:15)
[2021-01-24] MEDS ORDERED: carvediloL 12.5 MG TAB PO ONE (15:23)
--- NOTE | 2021-01-24 15:29 | Progress Note ---
Assessment and Plan Assessment and plan: Patient is a 30-year-old male with no significant past medical history who presented with nausea, vomiting, abdominal pain, and decreased urination for approximately 3 days that was found to be an acute renal failure with a creatinine of 40 upon presentation. Patient is being admitted for management of acute renal failure versus ESRD. #Hypertensive emergency -Continue p.o. antihypertensives: Coreg 25 mg twice daily, nifedipine 60 mg twice daily, and p.o. hydralazine 50 mg every 8hrs -Blood pressure should improve with initiation of hemodialysis -Continue telemetry. -SBP goal <160. Continue to monitor. #MOHINDER versus ATN versus ESRD -Creatinine 40, BUN 155 -Nephrology consulted; appreciate recs -Pending renal ultrasound -Vascular surgery consulted for permacath placement; pending recs -Renally dose medications and avoid nephrotoxic drugs. #Hyperphosphatemia -Phosphorus 11.4 -Started sevelamer 2400 mg 3 times daily with meals. -We will monitor with repeat phosphorus in the morning. #Hyponatremia -Sodium normal 127 -Likely secondary to volume overload in the setting of acute renal failure. Sh ould continue to improve with hemodialysis. -Continue to monitor #Normocytic anemia -Hemoglobin 7.1 -Possibly anemia of chronic disease. Continue to monitor #Advanced care planning -Disease education conducted, care plan discussed, diagnoses discussed, pr ognosis discussed, and patient acknowledges understanding with care plan -Time: +30 mins Disposition Plan: Continue medical management Total Time Spent with Patient (Minutes): 45 minutes History Interval history: No acute events overnight. Hospitalist Physical - Constitutional Vitals: Temp Pulse Resp BP Pulse Ox 98.4 F 90 14 186/123 99 01/23/21 14:41 01/24/21 10:37 01/24/21 07:00 01/24/21 14:00 01/24/21 14:00 General appearance: Present: no acute distress, well-nourished - EENT Eyes: Present: PERRL, EOM intact ENT: hearing intact, clear oral mucosa, dentition normal - Neck Neck: Present: supple, normal ROM - Respiratory Respiratory effort: normal Respiratory: bilateral: CTA - Cardiovascular Rhythm: regular Heart Sounds: Present: S1 & S2 - Extremities Extremities: no ischemia, pulses intact, pulses symmetrical, No edema, normal temperature, normal color, Full ROM Peripheral Pulses: within normal limits - Abdominal General gastrointestinal: soft, non-tender, non-distended, normal bowel sounds - Integumentary Integumentary: Present: clear, warm, dry - Psychiatric Psychiatric: appropriate mood/affect, intact judgment & insight, memory intact, cooperative - Neurologic Neurologic: CNII-XII intact, moves all extremities - Allied Health Allied health notes reviewed: nursing HEART Score - HEART Score EKG: Normal Age: < 45 Risk factors: 1-2 risk factors Troponin: < normal limit - Critical Actions Critical Actions: 0-3 pts:0.9-1.7%risk of adverse cardiac event.Candidate for discharge Results - Labs CBC & Chem 7: 01/24/21 04:52 01/24/21 04:52 Labs: Laboratory Last Values WBC 15.6 K/mm3 (4.5-11.0) H 01/24/21 04:52 RBC 2.31 M/mm3 (3.65-5.03) L 01/24/21 04:52 Hgb 7.1 gm/dl (11.8-15.2) L 01/24/21 04:52 Hct 21.6 % (35.5-45.6) L 01/24/21 04:52 MCV 94 fl (84-94) 01/24/21 04:52 MCH 31 pg (28-32) 01/24/21 04:52 MCHC 33 % (32-34) 01/24/21 04:52 RDW 16.2 % (13.2-15.2) H 01/24/21 04:52 Plt Count 194 K/mm3 (140-440) 01/24/21 04:52 Add Manual Diff Complete 01/24/21 04:52 Total Counted 100 01/24/21 04:52 Seg Neuts % (Manual) 94.0 % (40.0-70.0) H 01/24/21 04:52 Lymphocytes % (Manual) 5.0 % (13.4-35.0) L 01/24/21 04:52 Monocytes % (Manual) 1.0 % (0.0-7.3) 01/24/21 04:52 Eosinophils % (Manual) 2 % (0.0-4.3) 01/23/21 13:43 Nucleated RBC % Not Reportable 01/24/21 04:52 Seg Neutrophils # Man 14.7 K/mm3 (1.8-7.7) H 01/24/21 04:52 Band Neutrophils # 0.0 K/mm3 01/24/21 04:52 Lymphocytes # (Manual) 0.8 K/mm3 (1.2-5.4) L 01/24/21 04:52 Abs React Lymphs (Man) 0.0 K/mm3 01/24/21 04:52 Monocytes # (Manual) 0.2 K/mm3 (0.0-0.8) 01/24/21 04:52 Eosinophils # (Manual) 0.0 K/mm3 (0.0-0.4) 01/24/21 04:52 Basophils # (Manual) 0.0 K/mm3 (0.0-0.1) 01/24/21 04:52 Metamyelocytes # 0.0 K/mm3 01/24/21 04:52 Myelocytes # 0.0 K/mm3 01/24/21 04:52 Promyelocytes # 0.0 K/mm3 01/24/21 04:52 Blast Cells # 0.0 K/mm3 01/24/21 04:52 WBC Morphology Not Reportable 01/24/21 04:52 Hypersegmented Neuts Not Reportable 01/24/21 04:52 Hyposegmented Neuts Not Reportable 01/24/21 04:52 Hypogranular Neuts Not Reportable 01/24/21 04:52 Smudge Cells Not Reportable 01/24/21 04:52 Toxic Granulation Not Reportable 01/24/21 04:52 Toxic Vacuolation Not Reportable 01/24/21 04:52 Dohle Bodies Not Reportable 01/24/21 04:52 Pelger-Huet Anomaly Not Reportable 01/24/21 04:52 Jerry Rods Not Reportable 01/24/21 04:52 Platelet Estimate Consistent w auto 01/24/21 04:52 Clumped Platelets Not Reportable 01/24/21 04:52 Plt Clumps, EDTA Not Reportable 01/24/21 04:52 Large Platelets Not Reportable 01/24/21 04:52 Giant Platelets Not Reportable 01/24/21 04:52 Platelet Satelliting Not Reportable 01/24/21 04:52 Plt Morphology Comment Not Reportable 01/24/21 04:52 RBC Morphology Not Reportable 01/24/21 04:52 Dimorphic RBCs Not Reportable 01/24/21 04:52 Polychromasia Not Reportable 01/24/21 04:52 Hypochromasia Few 01/24/21 04:52 Poikilocytosis Not Reportable 01/24/21 04:52 Anisocytosis Not Reportable 01/24/21 04:52 Microcytosis Not Reportable 01/24/21 04:52 Macrocytosis Not Reportable 01/24/21 04:52 Spherocytes Not Reportable 01/24/21 04:52 Pappenheimer Bodies Not Reportable 01/24/21 04:52 Sickle Cells Not Reportable 01/24/21 04:52 Target Cells Not Reportable 01/24/21 04:52 Tear Drop Cells Not Reportable 01/24/21 04:52 Ovalocytes Not Reportable 01/24/21 04:52 Helmet Cells Not Reportable 01/24/21 04:52 Christopher-Paulden Bodies Not Reportable 01/24/21 04:52 [place] Rings Not Reportable 01/24/21 04:52 Shayna Cells Not Reportable 01/24/21 04:52 Bite Cells Not Reportable 01/24/21 04:52 Crenated Cell Not Reportable 01/24/21 04:52 Elliptocytes Not Reportable 01/24/21 04:52 Acanthocytes (Spur) Not Reportable 01/24/21 04:52 Rouleaux Not Reportable 01/24/21 04:52 Hemoglobin C Crystals Not Reportable 01/24/21 04:52 Schistocytes 2+ 01/24/21 04:52 Malaria parasites Not Reportable 01/24/21 04:52 Humberto Bodies Not Reportable 01/24/21 04:52 Hem Pathologist Commnt No 01/24/21 04:52 Sodium 127 mmol/L (137-145) L 01/24/21 04:52 Potassium 4.1 mmol/L (3.6-5.0) 01/24/21 04:52 Chloride 82.8 mmol/L (98-107) L 01/24/21 04:52 Carbon Dioxide 17 mmol/L (22-30) L 01/24/21 04:52 Anion Gap 31 mmol/L 01/24/21 04:52 BUN 155 mg/dL (9-20) H 01/24/21 04:52 Creatinine 40.0 mg/dL (0.8-1.3) H 01/24/21 04:52 Estimated GFR 2 ml/min 01/24/21 04:52 BUN/Creatinine Ratio 4 % 01/24/21 04:52 Glucose 139 mg/dL (75-100) H 01/24/21 04:52 Calcium 7.0 mg/dL (8.4-10.2) L 01/24/21 04:52 Phosphorus 11.40 mg/dL (2.5-4.5) H 01/24/21 04:52 Total Bilirubin 0.70 mg/dL (0.1-1.2) 01/23/21 13:43 AST 7 units/L (5-40) 01/23/21 13:43 ALT 6 units/L (7-56) L 01/23/21 13:43 Alkaline Phosphatase 60 units/L (35-129) 01/23/21 13:43 Total Protein 6.5 g/dL (6.3-8.2) 01/23/21 13:43 Albumin 3.8 g/dL (3.9-5) L 01/23/21 13:43 Albumin/Globulin Ratio 1.4 % 01/23/21 13:43 Lipase 131 units/L (13-60) H 01/23/21 13:43 Active Medications - Current Medications Current Medications: Generic Name Dose Route Start Last Admin Trade Name Freq PRN Reason Stop Dose Admin Acetaminophen 650 mg 01/23/21 17:40 Acetaminophen 325 Mg Tab PO Q4H PRN Pain MILD(1-3)/Fever >100.5/ESCAMILLA Calcium Acetate 1,334 mg 01/24/21 14:00 Calcium Acetate 667 Mg Cap PO TID SYDNIE Carvedilol 12.5 mg 01/23/21 22:00 01/24/21 11:42 Carvedilol 12.5 Mg Tab PO 12.5 mg BID SYDNIE Administration Hydralazine HCl 50 mg 01/23/21 18:00 01/24/21 06:27 Hydralazine 25 Mg Tab PO 50 mg Q8HR SYDNIE Administration Hydralazine HCl 10 mg 01/23/21 18:00 01/24/21 10:37 Hydralazine 20 Mg/1 Ml Inj IV 10 mg Q3H PRN Administration Blood Pressure Hydromorphone HCl 0.5 mg 01/23/21 17:40 01/24/21 15:19 Hydromorphone 1 Mg/1 Ml Inj IV 0.5 mg Q3H PRN Administration Pain , Severe (7-10) Ceftriaxone Sodium 1 gm in 50 mls @ 100 mls/hr 01/23/21 19:00 01/23/21 22:19 Rocephin/Ns 1 Gm/50 Ml IV 100 mls/hr Q24H SYDNIE Administration Protocol Metoclopramide HCl 10 mg 01/23/21 17:40 Metoclopramide 10 Mg/2 Ml Inj IV Q6H PRN Nausea And Vomiting Nifedipine 60 mg 01/24/21 10:00 01/24/21 11:42 Nifedipine Xl 60 Mg Tab PO 60 mg Q12HR SYDNIE Administration Ondansetron HCl 4 mg 01/23/21 17:40 Ondansetron 4 Mg/2 Ml Inj IV Q3H PRN Nausea And Vomiting Oxycodone/Acetaminophen 1 tab 01/23/21 17:40 Oxycodone /Acetaminophen 5-325mg Tab PO Q6H PRN Pain, Moderate (4-6) Sodium Chloride 10 ml 01/23/21 22:00 01/24/21 11:42 Sodium Chloride 0.9% 10 Ml Flush Syringe IV 10 ml BID SYDNIE Administration Sodium Chloride 10 ml 01/23/21 17:40 Sodium Chloride 0.9% 10 Ml Flush Syringe IV PRN PRN LINE FLUSH
[2021-01-24] MEDS ORDERED: SUCCINYLCHOLINE CHLORIDE 200 MG/10 ML INJ MDV ONE (15:56)
[2021-01-24] MEDS ORDERED: ETOMIDATE 20 MG/10 ML INJ IV ONE (15:56)
[2021-01-24 17:24] LABS: Hepatitis C Virus Antibody Non-Reactive (NonReactive)
[2021-01-24 17:41] LABS: Hepatitis B Surface Antigen Nonreactive (Negative)
[2021-01-24] MEDS: cefTRIAXone/NS 1 GM/50 ML 1 GM/50 ML BAG IV SCH (19:11)
--- NOTE | 2021-01-24 21:16 | Consultation ---
History of Present Illness - Reason for Consult Consult date: 01/24/21 Permacath Insertion Requesting physician: GASTON CASILLAS - History of Present Illness The patient is a 30 year old male who presented to the ER at [facility] with complaints of nausea, vomiting, head ache, vision changes, and abdominal pain. His work revealed severe renal failure hypertension. He denies a history of renal failure of any additional medical problems. He states that he has been living in [place] and recently had an episode of abdominal pain associated with constipation requiring medication to relieve his symptoms. He believes this was secondary to drinking green tea that induced multiple bouts of vomiting. He has no additional complaints at this time. Past History Past Medical History: hypertension, renal failure Past Surgical History: No surgical history Social history: no significant social history Family history: hypertension Medications and Allergies Allergies Allergy/AdvReac Type Severity Reaction Status Date / Time No Known Allergies Allergy Verified 01/23/21 10:18 Home Medications Medication Instructions Recorded Confirmed Last Taken Type No Known Home Medications [No 01/23/21 01/23/21 Unknown History Reported Home Medications] Active Meds: Active Medications Acetaminophen (Acetaminophen 325 Mg Tab) 650 mg PO Q4H PRN PRN Reason: Pain MILD(1-3)/Fever >100.5/ESCAMILLA Calcium Acetate (Calcium Acetate 667 Mg Cap) 1,334 mg PO TID [facility] Last Admin: 01/24/21 14:15 Dose: 1,334 mg Documented by: Carvedilol (Carvedilol 12.5 Mg Tab) 25 mg PO BID [facility] Hydralazine HCl (Hydralazine 25 Mg Tab) 50 mg PO Q8HR [facility] Last Admin: 01/24/21 16:15 Dose: 50 mg Documented by: Hydralazine HCl (Hydralazine 20 Mg/1 Ml Inj) 10 mg IV Q3H PRN PRN Reason: Blood Pressure Last Admin: 01/24/21 10:37 Dose: 10 mg Documented by: Hydromorphone HCl (Hydromorphone 1 Mg/1 Ml Inj) 0.5 mg IV Q3H PRN PRN Reason: Pain , Severe (7-10) Last Admin: 01/24/21 15:19 Dose: 0.5 mg Documented by: Ceftriaxone Sodium (Rocephin/Ns 1 Gm/50 Ml) 1 gm in 50 mls @ 100 mls/hr IV Q24H SYDNIE; Protocol Last Admin: 01/24/21 19:11 Dose: 100 mls/hr Documented by: Metoclopramide HCl (Metoclopramide 10 Mg/2 Ml Inj) 10 mg IV Q6H PRN PRN Reason: Nausea And Vomiting Nifedipine (Nifedipine Xl 60 Mg Tab) 60 mg PO Q12HR [facility] Last Admin: 01/24/21 11:42 Dose: 60 mg Documented by: Ondansetron HCl (Ondansetron 4 Mg/2 Ml Inj) 4 mg IV Q3H PRN PRN Reason: Nausea And Vomiting Oxycodone/Acetaminophen (Oxycodone /Acetaminophen 5-325mg Tab) 1 tab PO Q6H PRN PRN Reason: Pain, Moderate (4-6) Sodium Chloride (Sodium Chloride 0.9% 10 Ml Flush Syringe) 10 ml IV BID [facility] Last Admin: 01/24/21 11:42 Dose: 10 ml Documented by: Sodium Chloride (Sodium Chloride 0.9% 10 Ml Flush Syringe) 10 ml IV PRN PRN PRN Reason: LINE FLUSH Review of Systems All systems: negative Exam - Constitutional Vitals: Temp Pulse Resp BP Pulse Ox 98.4 F 90 14 136/87 100 01/23/21 14:41 01/24/21 10:37 01/24/21 07:00 01/24/21 18:00 01/24/21 18:10 General appearance: Present: no acute distress - Neck Neck: Present: supple - Respiratory Respiratory effort: normal Respiratory: bilateral: CTA - Cardiovascular Rhythm: regular - Extremities Extremities: no ischemia, pulses intact Extremity abnormal: edema - Abdominal General gastrointestinal: Present: soft, non-tender, non-distended Male genitourinary: Present: deferred - Rectal Rectal Exam: deferred - Musculoskeletal Musculoskeletal: strength equal bilaterally Results - Labs CBC & Chem 7: 01/24/21 04:52 01/24/21 04:52 Labs: Abnormal lab results 01/24/21 01/24/21 Range/Units 04:52 04:52 WBC 15.6 H (4.5-11.0) K/mm3 RBC 2.31 L (3.65-5.03) M/mm3 Hgb 7.1 L (11.8-15.2) gm/dl Hct 21.6 L (35.5-45.6) % RDW 16.2 H (13.2-15.2) % Seg Neuts % (Manual) 94.0 H (40.0-70.0) % Lymphocytes % (Manual) 5.0 L (13.4-35.0) % Seg Neutrophils # Man 14.7 H (1.8-7.7) K/mm3 Lymphocytes # (Manual) 0.8 L (1.2-5.4) K/mm3 Sodium 127 L (137-145) mmol/L Chloride 82.8 L (98-107) mmol/L Carbon Dioxide 17 L (22-30) mmol/L BUN 155 H (9-20) mg/dL Creatinine 40.0 H (0.8-1.3) mg/dL Glucose 139 H (75-100) mg/dL Calcium 7.0 L (8.4-10.2) mg/dL Phosphorus 11.40 H (2.5-4.5) mg/dL Assessment and Plan The patient is a 30 year old male who presented to the ER with complaints of headache and abdominal pain and was found to be in renal failure with associated hypertension. He is in need of a permacath for dialysis access. He and his mother were given the risk, benefits, and alternative procedures. They expres sed understanding and agreed to proceed.
[2021-01-24] MEDS: oxyCODONE /ACETAMINOPHEN 5-325MG TAB PO PRN (21:49)
[2021-01-25] MEDS: hydrALAZINE 25 MG TAB PO SCH ×3 (05:00→21:47)
[2021-01-25 05:10] LABS: Calcium 7.7 mg/dL (8.4-10.2)
[2021-01-25 05:27] LABS: Basophils # (Auto) 0.1 K/mm3 (0.0-0.1); Eosinophils % (Auto) 0.4 % (0.0-4.3); Hemoglobin 6.2 gm/dl (11.8-15.2); Mean Corpuscular HGB Conc 33 % (32-34); Mean Corpuscular Volume 94 fl (84-94); Monocytes # (Auto) 0.6 K/mm3 (0.0-0.8); Monocytes % (Auto) 4.6 % (0.0-7.3); Platelet Count 235 K/mm3 (140-440); Red Blood Count 1.99 M/mm3 (3.65-5.03); Red Cell Distribution Width 16.7 % (13.2-15.2)
[2021-01-25 06:17] LABS: Hematocrit 18.8 % (35.5-45.6)
[2021-01-25] MEDS ORDERED: SODIUM CHLORIDE 0.9% 500 ML 500 ML IV NR (06:21)
[2021-01-25 06:41] LABS: Anisocytosis 1+; Band Neutrophils # (Manual) 0.1 K/mm3; Hypochromasia 3+; Macrocytosis 1+; Schistocytes 2+; Total Cells Counted 100
[2021-01-25 06:42] LABS: Giant Platelets Rare; Large Platelets Few; Platelet Estimate Consistent w Auto
[2021-01-25] MEDS ORDERED: HEPARIN/NS 5000 UNIT/500ML 500 ML IR ONE (08:16)
[2021-01-25] MEDS ORDERED: LIDOCAINE 1%/EPINEPHRINE 1:100,000 VIAL (20 ML) INFILTRATI ONE (08:16)
[2021-01-25] MEDS ORDERED: fentaNYL 100 MCG/2 ML INJ ONE (08:37)
[2021-01-25] MEDS ORDERED: MIDAZOLAM 2 MG/2 ML INJ ONE (08:37)
[2021-01-25] MEDS ORDERED: SODIUM CHLORIDE 0.9% 500 ML 500 ML ONE (08:38)
[2021-01-25] MEDS ORDERED: ceFAZolin/Water 2 GM/20 ML 2 GM/20 ML SYRINGE IV ONE (08:38)
[2021-01-25] MEDS ORDERED: MIDAZOLAM 2 MG/2 ML INJ IV ONE (08:54)
[2021-01-25] MEDS ORDERED: HEPARIN 10,000 UNITS/10 ML VIAL IV ONE ×2 (09:08)
--- NOTE | 2021-01-25 09:10 | Operative Report ---
Operative Report Operative Report: Exam: Ultrasound and fluoroscopic guided placement of tunneled hemodialysis catheter Clinical indication: Patient with a history of end-stage renal disease requiring dialysis access Date: 01/25/2021 Procedure: Following an explanation of the risk, benefits and alternatives; written informed consent was obtained. The patient was brought to the angiographic suite and placed in supine position on the examination table. Initial ultrasound evaluation of the neck demonstrated a patent right internal jugular vein. The patient's right neck and chest wall were prepped and draped in the usual sterile fashion. 1% lidocaine was used for anesthesia. Under ultrasound guidance, the right internal jugular vein was cannulated with a 7 cm 18-gauge needle. A 0.035 guidewire was advanced under fluoroscopy into the IVC to document intravenous positioning and for anchoring. The needle was removed. An appropriate catheter exit site was chosen along the right lateral chest wall. 1% lidocaine was used for anesthesia at the catheter exit site and along the tunnel tract. A Bard 23 cm glidepath tunneled hemo dialysis catheter was then tunneled antegrade from the catheter exit site to the venotomy site. Following serial dilation over the guidewire under fluoroscopy, a 15 Marshallese peel-away sheath was advanced over the guidewire under fluoroscopy. The trocar and guidewire were removed. The catheter was inserted through the peel-away sheath and the peel-away sheath removed. The catheter tip was positioned at the cavoatrial junction. Both ports flushed and aspirated easily and were then locked with appropriate volumes of heparin. The venotomy site was closed using 4-0 Vicryl suture and Dermabond. The catheter exit site was approximated using 2-0 Ethilon suture and Dermabond. Sterile dressings were applied. The patient tolerated the procedure well. There were no immediate post procedure complications. Conscious sedation was performed under the guidance of radiologic nursing. Continuous cardiopulmonary monitoring was utilized. Impression: Ultrasound and fluoroscopic guided placement of tunneled hemodialysis catheter via the right internal jugular vein.
--- NOTE | 2021-01-25 10:40 | Progress Note ---
Assessment and Plan Acute Renal Failure secondary to Ischemic ATN vs Prerenal vs CKD stage 5 from Hypertensive Nephrosclerosis Uncontrolled Hypertension Nausea/Vomiting/ Abdominal Pain Questionable Pancreatitis and Colitis Leukocytosis Hyponatremia Hyperphosphatemia Anemia Plan: gentle HD today for clearance and volume removal HD again today, most likely daily for now Renal Ultrasound shows- Medical renal disease. No Hydronephrosis secondary GN and vascultitis work up was ordered ALAN, ANCA, Hep panel, C3, C4, Ch50, Anti-GBM, SPEP, serum free light chains CXR is clear Hyperphosphatemia-cont Calcium Acetate 1300 mg po TID Anemia-Epogen 42313 units today Obtain daily weights Monitor I/O's daily Renally dose medications Avoid nephrotoxic agents Assess dialysis needs daily Subjective Date of service: 01/25/21 Principal diagnosis: Severe Renal Failure Interval history: underwent permcath placement this AM Objective - Vital Signs Vital signs: Vital Signs - 12hr 01/24/21 01/25/21 01/25/21 23:13 03:50 06:33 Temperature 98.1 F 97.7 F Pulse Rate 85 82 Respiratory 19 18 Rate Blood Pressure 107/59 101/49 O2 Sat by Pulse 98 100 100 Oximetry O2 Sat by Pulse Oximetry [ Bilateral Throughout] 01/25/21 01/25/21 01/25/21 09:20 09:30 09:45 Temperature 97.5 F L Pulse Rate 85 85 87 Respiratory 16 Rate Blood Pressure 146/73 146/73 150/80 O2 Sat by Pulse Oximetry O2 Sat by Pulse 100 Oximetry [ Bilateral Throughout] 01/25/21 10:00 Temperature Pulse Rate 86 Respiratory Rate Blood Pressure 149/81 O2 Sat by Pulse Oximetry O2 Sat by Pulse Oximetry [ Bilateral Throughout] - Lab 01/25/21 04:36 01/25/21 04:36 Most recent lab results Calcium 7.7 mg/dL (8.4-10.2) L 01/25/21 04:36 Phosphorus 12.70 mg/dL (2.5-4.5) H 01/25/21 04:36 Magnesium 2.50 mg/dL (1.7-2.3) H 01/25/21 04:36 Medications & Allergies - Medications Allergies/Adverse Reactions: Allergies No Known Allergies Allergy (Verified 01/23/21 10:18) Home Medications: Home Medications Medication Instructions Recorded Confirmed Last Taken Type No Known Home Medications [No 01/23/21 01/23/21 Unknown History Reported Home Medications] Active Medications: Generic Name Dose Route Start Last Admin Trade Name Freq PRN Reason Stop Dose Admin Acetaminophen 650 mg 01/23/21 17:40 Acetaminophen 325 Mg Tab PO Q4H PRN Pain MILD(1-3)/Fever >100.5/ESCAMILLA Calcium Acetate 1,334 mg 01/24/21 14:00 01/24/21 14:15 Calcium Acetate 667 Mg Cap PO 1,334 mg TID SYDNIE Administration Carvedilol 25 mg 01/24/21 15:24 01/24/21 21:50 Carvedilol 12.5 Mg Tab PO 25 mg BID SYDNIE Administration Hydralazine HCl 50 mg 01/23/21 18:00 01/25/21 05:00 Hydralazine 25 Mg Tab PO Not Given Q8HR SYDNIE Hydralazine HCl 10 mg 01/23/21 18:00 01/24/21 10:37 Hydralazine 20 Mg/1 Ml Inj IV 10 mg Q3H PRN Administration Blood Pressure Hydromorphone HCl 0.5 mg 01/23/21 17:40 01/24/21 15:19 Hydromorphone 1 Mg/1 Ml Inj IV 0.5 mg Q3H PRN Administration Pain , Severe (7-10) Ceftriaxone Sodium 1 gm in 50 mls @ 100 mls/hr 01/23/21 19:00 01/24/21 19:11 Rocephin/Ns 1 Gm/50 Ml IV 100 mls/hr Q24H SYDNIE Administration Protocol Sodium Chloride 500 mls @ 0 mls/hr 01/25/21 06:21 Nacl 0.9% 500 Ml IV 01/25/21 23:59 ONCE NR As Directed Metoclopramide HCl 10 mg 01/23/21 17:40 Metoclopramide 10 Mg/2 Ml Inj IV Q6H PRN Nausea And Vomiting Nifedipine 60 mg 01/24/21 10:00 01/24/21 21:49 Nifedipine Xl 60 Mg Tab PO 60 mg Q12HR SYDNIE Administration Ondansetron HCl 4 mg 01/23/21 17:40 Ondansetron 4 Mg/2 Ml Inj IV Q3H PRN Nausea And Vomiting Oxycodone/Acetaminophen 1 tab 01/23/21 17:40 01/24/21 21:49 Oxycodone /Acetaminophen 5-325mg Tab PO 1 tab Q6H PRN Administration Pain, Moderate (4-6) Sevelamer Carbonate 2,400 mg 01/25/21 11:30 Sevelamer Carbonate 800 Mg Tab PO AC SYDNIE Sodium Chloride 10 ml 01/23/21 22:00 01/24/21 21:50 Sodium Chloride 0.9% 10 Ml Flush Syringe IV 10 ml BID SYDNIE Administration Sodium Chloride 10 ml 01/23/21 17:40 Sodium Chloride 0.9% 10 Ml Flush Syringe IV PRN PRN LINE FLUSH
[2021-01-25] MEDS ORDERED: EPOETIN ALFA-EPBX 20,000 UNIT/1 ML VIAL SUB-Q PRN (11:00)
[2021-01-25] MEDS: CALCIUM ACETATE 667 MG CAP PO SCH ×4 (12:22→21:48)
[2021-01-25] MEDS: SEVELAMER CARBONATE 800 MG TAB PO SCH ×2 (12:27→17:17)
[2021-01-25] MEDS: NIFEdipine XL 60 MG TAB PO SCH ×2 (12:27→21:48)
[2021-01-25] MEDS: carvediloL 12.5 MG TAB PO SCH ×2 (12:28→21:47)
--- NOTE | 2021-01-25 14:11 | Progress Note ---
Assessment and Plan Assessment and plan: Patient is a 30-year-old male with no significant past medical history who presented with nausea, vomiting, abdominal pain, and decreased urination for approximately 3 days that was found to be an acute renal failure with a creatinine of 40 upon presentation. Patient is being admitted for management of acute renal failure versus ESRD. #Hypertensive emergency -Continue p.o. antihypertensives: Coreg 25 mg twice daily, nifedipine 60 mg twice daily, and p.o. hydralazine 50 mg every 8hrs -Blood pressure should improve with initiation of hemodialysis -Continue telemetry. -SBP goal <160. Continue to monitor. #MOHINDER versus ATN versus ESRD -Creatinine 40, BUN 155 -Nephrology consulted; appreciate recs -Renal ultrasound negative for hydronephrosis or renal cysts. Consistent with medical renal disease. -Vascular surgery consulted for permacath placement; hemodialysis access obtained 01/25/2021 (Vas-Cath) -Renally dose medications and avoid nephrotoxic drugs. #Hyperphosphatemia -Phosphorus 12.7 -Continue sevelamer 2400 mg 3 times daily with meals. -We will monitor with repeat phosphorus in the morning. #Hyponatremia -Sodium normal 125 -Likely secondary to volume overload in the setting of acute renal failure. Should continue to improve with hemodialysis. -Continue to monitor #Normocytic anemia -Hemoglobin 6.2 -Possibly anemia of chronic disease. Transfuse 1 unit packed RBC. Will recheck with CBC. #Advanced care planning -Disease education conducted, care plan discussed, diagnoses discussed, prognosis discussed, and patient acknowledges understanding with care plan -Time: +30 mins Disposition Plan: Continue medical management Total Time Spent with Patient (Minutes): 45 minutes History Interval history: No acute events overnight. Hospitalist Physical - Constitutional Vitals: Temp Pulse Resp BP Pulse Ox 97.5 F L 96 H 16 178/99 100 01/25/21 12:21 01/25/21 13:00 01/25/21 12:21 01/25/21 12:28 01/25/21 13:00 General appearance: Present: no acute distress, well-nourished, obese - EENT Eyes: Present: PERRL, EOM intact ENT: hearing intact, clear oral mucosa, dentition normal - Neck Neck: Present: supple, normal ROM - Respiratory Respiratory effort: normal Respiratory: bilateral: CTA - Cardiovascular Rhythm: regular Heart Sounds: Present: S1 & S2 - Extremities Extremities: no ischemia, pulses intact, pulses symmetrical, No edema, normal temperature, normal color, Full ROM Peripheral Pulses: within normal limits - Abdominal General gastrointestinal: soft, non-tender, non-distended, normal bowel sounds - Integumentary Integumentary: Present: clear, warm, dry - Psychiatric Psychiatric: appropriate mood/affect, intact judgment & insight, memory intact, cooperative - Neurologic Neurologic: CNII-XII intact - Allied Health Allied health notes reviewed: nursing HEART Score - HEART Score EKG: Normal Age: < 45 Risk factors: 1-2 risk factors Troponin: < normal limit - Critical Actions Critical Actions: 0-3 pts:0.9-1.7%risk of adverse cardiac event.Candidate for discharge Results - Labs CBC & Chem 7: 01/25/21 04:36 01/25/21 04:36 Labs: Laboratory Last Values WBC 12.1 K/mm3 (4.5-11.0) H 01/25/21 04:36 RBC 1.99 M/mm3 (3.65-5.03) L 01/25/21 04:36 Hgb 6.2 gm/dl (11.8-15.2) L 01/25/21 04:36 Hct 18.8 % (35.5-45.6) L* 01/25/21 04:36 MCV 94 fl (84-94) 01/25/21 04:36 MCH 31 pg (28-32) 01/25/21 04:36 MCHC 33 % (32-34) 01/25/21 04:36 RDW 16.7 % (13.2-15.2) H 01/25/21 04:36 Plt Count 235 K/mm3 (140-440) 01/25/21 04:36 [place] % (Auto) 4.6 % (0.0-7.3) 01/25/21 04:36 Eos % (Auto) 0.4 % (0.0-4.3) 01/25/21 04:36 [place] # (Auto) 0.6 K/mm3 (0.0-0.8) 01/25/21 04:36 Eos # (Auto) 0.0 K/mm3 (0.0-0.4) 01/25/21 04:36 Baso # (Auto) 0.1 K/mm3 (0.0-0.1) 01/25/21 04:36 Add Manual Diff Complete 01/25/21 04:36 Total Counted 100 01/25/21 04:36 Seg Neutrophils % 89.0 % (40.0-70.0) H 01/25/21 04:36 Seg Neuts % (Manual) 83.0 % (40.0-70.0) H 01/25/21 04:36 Band Neutrophils % 1.0 % 01/25/21 04:36 Lymphocytes % (Manual) 11.0 % (13.4-35.0) L 01/25/21 04:36 Monocytes % (Manual) 2.0 % (0.0-7.3) 01/25/21 04:36 Eosinophils % (Manual) 3.0 % (0.0-4.3) 01/25/21 04:36 Nucleated RBC % Not Reportable 01/25/21 04:36 Seg Neutrophils # 10.7 K/mm3 (1.8-7.7) H 01/25/21 04:36 Seg Neutrophils # Man 10.0 K/mm3 (1.8-7.7) H 01/25/21 04:36 Band Neutrophils # 0.1 K/mm3 01/25/21 04:36 Lymphocytes # (Manual) 1.3 K/mm3 (1.2-5.4) 01/25/21 04:36 Abs React Lymphs (Man) 0.0 K/mm3 01/25/21 04:36 Monocytes # (Manual) 0.2 K/mm3 (0.0-0.8) 01/25/21 04:36 Eosinophils # (Manual) 0.4 K/mm3 (0.0-0.4) 01/25/21 04:36 Basophils # (Manual) 0.0 K/mm3 (0.0-0.1) 01/25/21 04:36 Metamyelocytes # 0.0 K/mm3 01/25/21 04:36 Myelocytes # 0.0 K/mm3 01/25/21 04:36 Promyelocytes # 0.0 K/mm3 01/25/21 04:36 Blast Cells # 0.0 K/mm3 01/25/21 04:36 WBC Morphology Not Reportable 01/25/21 04:36 Hypersegmented Neuts Not Reportable 01/25/21 04:36 Hyposegmented Neuts Not Reportable 01/25/21 04:36 Hypogranular Neuts Not Reportable 01/25/21 04:36 Smudge Cells Not Reportable 01/25/21 04:36 Toxic Granulation Not Reportable 01/25/21 04:36 Toxic Vacuolation Not Reportable 01/25/21 04:36 Dohle Bodies Not Reportable 01/25/21 04:36 Pelger-Huet Anomaly Not Reportable 01/25/21 04:36 Jerry Rods Not Reportable 01/25/21 04:36 Platelet Estimate Consistent w auto 01/25/21 04:36 Clumped Platelets Not Reportable 01/25/21 04:36 Plt Clumps, EDTA Not Reportable 01/25/21 04:36 Large Platelets Few 01/25/21 04:36 Giant Platelets Rare 01/25/21 04:36 Platelet Satelliting Not Reportable 01/25/21 04:36 Plt Morphology Comment Not Reportable 01/25/21 04:36 RBC Morphology Not Reportable 01/25/21 04:36 Dimorphic RBCs Not Reportable 01/25/21 04:36 Polychromasia Few 01/25/21 04:36 Hypochromasia 3+ 01/25/21 04:36 Poikilocytosis Not Reportable 01/25/21 04:36 Anisocytosis 1+ 01/25/21 04:36 Microcytosis Not Reportable 01/25/21 04:36 Macrocytosis 1+ 01/25/21 04:36 Spherocytes Not Reportable 01/25/21 04:36 Pappenheimer Bodies Not Reportable 01/25/21 04:36 Sickle Cells Not Reportable 01/25/21 04:36 Target Cells Not Reportable 01/25/21 04:36 Tear Drop Cells Not Reportable 01/25/21 04:36 Ovalocytes Not Reportable 01/25/21 04:36 Helmet Cells Not Reportable 01/25/21 04:36 Christopher-Norvelt Bodies Not Reportable 01/25/21 04:36 Alcalde Rings Not Reportable 01/25/21 04:36 Shayna Cells Not Reportable 01/25/21 04:36 Bite Cells Not Reportable 01/25/21 04:36 Crenated Cell Not Reportable 01/25/21 04:36 Elliptocytes Not Reportable 01/25/21 04:36 Acanthocytes (Spur) Not Reportable 01/25/21 04:36 Rouleaux Not Reportable 01/25/21 04:36 Hemoglobin C Crystals Not Reportable 01/25/21 04:36 Schistocytes 2+ 01/25/21 04:36 Malaria parasites Not Reportable 01/25/21 04:36 Humberto Bodies Not Reportable 01/25/21 04:36 Hem Pathologist Commnt No 01/25/21 04:36 Sodium 125 mmol/L (137-145) L 01/25/21 04:36 Potassium 3.9 mmol/L (3.6-5.0) 01/25/21 04:36 Chloride 78.6 mmol/L (98-107) L 01/25/21 04:36 Carbon Dioxide 15 mmol/L (22-30) L 01/25/21 04:36 Anion Gap 35 mmol/L 01/25/21 04:36 BUN 167 mg/dL (9-20) H 01/25/21 04:36 Creatinine 43.9 mg/dL (0.8-1.3) H 01/25/21 04:36 Estimated GFR 1 ml/min 01/25/21 04:36 BUN/Creatinine Ratio 4 % 01/25/21 04:36 Glucose 138 mg/dL (75-100) H 01/25/21 04:36 Calcium 7.7 mg/dL (8.4-10.2) L 01/25/21 04:36 Phosphorus 12.70 mg/dL (2.5-4.5) H 01/25/21 04:36 Magnesium 2.50 mg/dL (1.7-2.3) H 01/25/21 04:36 Iron 41 ug/dL (49-181) L 01/25/21 04:36 TIBC 223 mcg/dL (250-450) L 01/25/21 04:36 Ferritin 152.0 ng/mL (30.0-300.0) 01/25/21 04:36 Total Bilirubin 0.70 mg/dL (0.1-1.2) 01/23/21 13:43 AST 7 units/L (5-40) 01/23/21 13:43 ALT 6 units/L (7-56) L 01/23/21 13:43 Alkaline Phosphatase 60 units/L (35-129) 01/23/21 13:43 Total Protein 6.5 g/dL (6.3-8.2) 01/23/21 13:43 Albumin 3.8 g/dL (3.9-5) L 01/23/21 13:43 Albumin/Globulin Ratio 1.4 % 01/23/21 13:43 Lipase 131 units/L (13-60) H 01/23/21 13:43 PTH Intact 391.8 pg/mL (15-65) H 01/25/21 04:36 Hepatitis A IgM Ab Non-reactive (NonReactive) 01/24/21 11:50 Hep Bs Antigen Nonreactive (Negative) 01/24/21 11:50 Hep B Core IgM Ab Non-reactive (NonReactive) 01/24/21 11:50 Hepatitis C Antibody Non-reactive (NonReactive) 01/24/21 11:50 [place]/IV: Voiding Method Urinal Active Medications - Current Medications Current Medications: Generic Name Dose Route Start Last Admin Trade Name Freq PRN Reason Stop Dose Admin Acetaminophen 650 mg 01/23/21 17:40 Acetaminophen 325 Mg Tab PO Q4H PRN Pain MILD(1-3)/Fever >100.5/[place] Calcium Acetate 1,334 mg 01/24/21 14:00 01/25/21 12:22 Calcium Acetate 667 Mg Cap PO Not Given TID SYDNIE Carvedilol 25 mg 01/24/21 15:24 01/25/21 12:28 Carvedilol 12.5 Mg Tab PO 25 mg BID SYDNIE Administration Hydralazine HCl 50 mg 01/23/21 18:00 01/25/21 05:00 Hydralazine 25 Mg Tab PO Not Given Q8HR [facility] Hydralazine HCl 10 mg 01/23/21 18:00 01/24/21 10:37 Hydralazine 20 Mg/1 Ml Inj IV 10 mg Q3H PRN Administration Blood Pressure Hydromorphone HCl 0.5 mg 01/23/21 17:40 01/24/21 15:19 Hydromorphone 1 Mg/1 Ml Inj IV 0.5 mg Q3H PRN Administration Pain , Severe (7-10) Ceftriaxone Sodium 1 gm in 50 mls @ 100 mls/hr 01/23/21 19:00 01/24/21 19:11 Rocephin/Ns 1 Gm/50 Ml IV 100 mls/hr Q24H SYDNIE Administration Protocol Sodium Chloride 500 mls @ 0 mls/hr 01/25/21 06:21 Nacl 0.9% 500 Ml IV 01/25/21 23:59 ONCE NR As Directed Metoclopramide HCl 10 mg 01/23/21 17:40 Metoclopramide 10 Mg/2 Ml Inj IV Q6H PRN Nausea And Vomiting Nifedipine 60 mg 01/24/21 10:00 01/25/21 12:27 Nifedipine Xl 60 Mg Tab PO 60 mg Q12HR SYDNIE Administration Ondansetron HCl 4 mg 01/23/21 17:40 Ondansetron 4 Mg/2 Ml Inj IV Q3H PRN Nausea And Vomiting Oxycodone/Acetaminophen 1 tab 01/23/21 17:40 01/24/21 21:49 Oxycodone /Acetaminophen 5-325mg Tab PO 1 tab Q6H PRN Administration Pain, Moderate (4-6) Sevelamer Carbonate 2,400 mg 01/25/21 11:30 01/25/21 12:27 Sevelamer Carbonate 800 Mg Tab PO 2,400 mg AC SYDNIE Administration Sodium Chloride 10 ml 01/23/21 22:00 01/25/21 12:28 Sodium Chloride 0.9% 10 Ml Flush Syringe IV 10 ml BID SYDNIE Administration Sodium Chloride 10 ml 01/23/21 17:40 Sodium Chloride 0.9% 10 Ml Flush Syringe IV PRN PRN LINE FLUSH
[2021-01-25] MEDS: oxyCODONE /ACETAMINOPHEN 5-325MG TAB PO PRN (20:04)
[2021-01-25] MEDS: cefTRIAXone/NS 1 GM/50 ML 1 GM/50 ML BAG IV SCH (21:39)
[2021-01-26] MEDS: hydrALAZINE 25 MG TAB PO SCH ×3 (06:08→22:00)
[2021-01-26 07:14] LABS: Basophils % (Auto) 0.5 % (0.0-1.8); Eosinophils % (Auto) 2.2 % (0.0-4.3); Hematocrit 20.8 % (35.5-45.6); Hemoglobin 6.8 gm/dl (11.8-15.2); Lymphocytes % (Auto) 10.5 % (13.4-35.0); Mean Corpuscular HGB Conc 33 % (32-34); Mean Corpuscular Volume 94 fl (84-94); Monocytes % (Auto) 7.6 % (0.0-7.3); Platelet Count 289 K/mm3 (140-440); Red Blood Count 2.22 M/mm3 (3.65-5.03); Red Cell Distribution Width 18.7 % (13.2-15.2)
[2021-01-26 07:15] LABS: Basophils # (Auto) 0.1 K/mm3 (0.0-0.1); Eosinophils # (Auto) 0.3 K/mm3 (0.0-0.4); Lymphocytes # (Auto) 1.3 K/mm3 (1.2-5.4); Monocytes # (Auto) 0.9 K/mm3 (0.0-0.8)
[2021-01-26 07:33] LABS: Calcium 7.8 mg/dL (8.4-10.2)
[2021-01-26] MEDS: SEVELAMER CARBONATE 800 MG TAB PO SCH ×3 (07:54→15:40)
[2021-01-26] MEDS: CALCIUM ACETATE 667 MG CAP PO SCH ×3 (07:55→22:00)
[2021-01-26] MEDS: oxyCODONE /ACETAMINOPHEN 5-325MG TAB PO PRN ×2 (07:55→22:08)
[2021-01-26] MEDS: carvediloL 12.5 MG TAB PO SCH ×2 (09:18→21:59)
[2021-01-26] MEDS: NIFEdipine XL 60 MG TAB PO SCH ×2 (09:18→22:00)
[2021-01-26] MEDS: CALCITRIOL 0.5 MCG CAP PO SCH (09:19)
[2021-01-26] MEDS ORDERED: CALCIUM GLUCONATE 1,000 MG in SODIUM CHLORIDE 0.9% 100 ML IV ONE (10:00)
[2021-01-26] MEDS ORDERED: SODIUM CHLORIDE 0.9% 100 ML IV PRN (11:00)
--- NOTE | 2021-01-26 11:28 | Progress Note ---
Assessment and Plan Assessment: Acute Renal Failure secondary to Ischemic ATN vs Prerenal vs CKD stage 5 from Hypertensive Nephrosclerosis Uncontrolled Hypertension Nausea/Vomiting/ Abdominal Pain Questionable Pancreatitis and Colitis Leukocytosis Hyponatremia Hyperphosphatemia Anemia Plan: Renal labs reviewed. Serum creatinine 25.1 today and BUN is 95, yesterday's serum creatinine was 43.9 S/P perm-catheter placement yesterday on 01/25/21. Patient was started on hemodialysis yesterday on 01/25/21 Hemodialysis again today for clearance mainly Baseline serum creatinine unknown but likely has advanced CKD due to HTN Renal Ultrasound shows- Medical renal disease. No Hydronephrosis For further work-up, ordered ALAN, ANCA, Hep panel, C3, C4, Ch50, Anti-GBM, SPEP, serum free light chains-pending Urine lytes, protein and eosinophils-pending Hyperphosphatemia, Improving-On Calcium Acetate 1300 mg po TID Anemia- On Epogen 20,000 units TIW. transfuse as needed Obtain daily weights Monitor I/O's daily Renally dose medications Avoid nephrotoxic agents Assess dialysis needs daily Consulted case management for outpatient HD placement to [facility] Plan of care reviewed by Dr. Vaughn Subjective Date of service: 01/26/21 Principal diagnosis: Severe Renal Failure Interval history: Patient seen lying in bed. Father at bedside. Reviewed renal plan. Objective - Vital Signs Vital signs: Vital Signs - 12hr 01/26/21 01/26/21 01/26/21 00:00 03:59 04:00 Temperature 97.9 F 98.6 F Pulse Rate 95 H 90 88 Respiratory 18 18 Rate Blood Pressure 137/87 115/68 O2 Sat by Pulse 97 99 Oximetry 01/26/21 01/26/21 01/26/21 06:08 07:00 07:55 Temperature 98.7 F Pulse Rate 89 96 H Respiratory 16 18 Rate Blood Pressure 130/79 144/82 O2 Sat by Pulse 99 96 Oximetry - General Appearance General appearance: well-developed, appears stated age EENT: ATNC, PERRL, hearing intact, vision intact Neck: no JVD, supple Respiratory: Present: Decreased Breath Sounds Cardiology: S1S2 Gastrointestinal: normoactive bowel sounds Integumentary: warm and dry Neurologic: alert and oriented x3 Musculoskeletal: other (No edema) - Lab 01/26/21 04:36 01/26/21 04:36 Most recent lab results Calcium 7.8 mg/dL (8.4-10.2) L 01/26/21 04:36 Phosphorus 8.00 mg/dL (2.5-4.5) H D 01/26/21 04:36 Magnesium 2.10 mg/dL (1.7-2.3) 01/26/21 04:36 Medications & Allergies - Medications Allergies/Adverse Reactions: Allergies No Known Allergies Allergy (Verified 01/23/21 10:18) Home Medications: Home Medications Medication Instructions Recorded Confirmed Last Taken Type No Known Home Medications [No 01/23/21 01/23/21 Unknown History Reported Home Medications] Active Medications: Generic Name Dose Route Start Last Admin Trade Name Freq PRN Reason Stop Dose Admin Acetaminophen 650 mg 01/23/21 17:40 Acetaminophen 325 Mg Tab PO Q4H PRN Pain MILD(1-3)/Fever >100.5/[place] Calcitriol 0.5 mcg 01/26/21 10:00 01/26/21 09:19 Calcitriol 0.5 Mcg Cap PO 0.5 mcg QDAY SYDNIE Administration Calcium Acetate 1,334 mg 01/24/21 14:00 01/26/21 07:55 Calcium Acetate 667 Mg Cap PO 1,334 mg TID SYDNIE Administration Carvedilol 25 mg 01/24/21 15:24 01/26/21 09:18 Carvedilol 12.5 Mg Tab PO 25 mg BID SYDNIE Administration Hydralazine HCl 50 mg 01/23/21 18:00 01/26/21 06:08 Hydralazine 25 Mg Tab PO 50 mg Q8HR SYDNIE Administration Hydralazine HCl 10 mg 01/23/21 18:00 01/24/21 10:37 Hydralazine 20 Mg/1 Ml Inj IV 10 mg Q3H PRN Administration Blood Pressure Hydromorphone HCl 0.5 mg 01/23/21 17:40 01/24/21 15:19 Hydromorphone 1 Mg/1 Ml Inj IV 0.5 mg Q3H PRN Administration Pain , Severe (7-10) Sodium Chloride 100 mls @ 999 mls/hr 01/26/21 11:00 Nacl 0.9% IV BRIAN PRN Hypotension Metoclopramide HCl 10 mg 01/23/21 17:40 Metoclopramide 10 Mg/2 Ml Inj IV Q6H PRN Nausea And Vomiting Nifedipine 60 mg 01/24/21 10:00 01/26/21 09:18 Nifedipine Xl 60 Mg Tab PO 60 mg Q12HR SYDNIE Administration Ondansetron HCl 4 mg 01/23/21 17:40 01/26/21 09:19 Ondansetron 4 Mg/2 Ml Inj IV 4 mg Q3H PRN Administration Nausea And Vomiting Oxycodone/Acetaminophen 1 tab 01/23/21 17:40 01/26/21 07:55 Oxycodone /Acetaminophen 5-325mg Tab PO 1 tab Q6H PRN Administration Pain, Moderate (4-6) Sevelamer Carbonate 2,400 mg 01/25/21 11:30 01/26/21 07:54 Sevelamer Carbonate 800 Mg Tab PO 2,400 mg AC SYDNIE Administration Sodium Chloride 10 ml 01/23/21 22:00 01/26/21 09:19 Sodium Chloride 0.9% 10 Ml Flush Syringe IV 10 ml BID SYDNIE Administration Sodium Chloride 10 ml 01/23/21 17:40 Sodium Chloride 0.9% 10 Ml Flush Syringe IV PRN PRN LINE FLUSH
[2021-01-26] MEDS ORDERED: EPOETIN ALFA-EPBX 20,000 UNIT/1 ML VIAL IV PRN (12:00)
--- NOTE | 2021-01-26 13:03 | Vascular Lab Report ---
DOPPLER ULTRASOUND UPPER EXTREMITY VENOUS MAPPING, BILATERAL INDICATION / CLINICAL INFORMATION: Vein mapping B/L UE for Dialysis Access TECHNIQUE: Grayscale, color and spectral Doppler imaging of the venous system of the right and left u pper extremities was performed. COMPARISON: None available. FINDINGS: RIGHT UPPER EXTREMITY: Brachial Artery (Diameter, in cm): 0.6 Radial Artery (Diameter, in cm): 0.3 Basilic Vein (Diameter, in cm): - Upper Arm: Not measured. - Mid Arm: 0.4 - Lower Arm: 0.5 - Antecubital: 0.4 - Upper Forearm: 0.3 - Mid Forearm: 0.3 - Distal Forearm: 0.2 Cephalic Vein (Diameter, in cm): - Upper Arm: 0.3 - Mid Arm: 0.5 - Lower Arm: 0.4 - Antecubital: 0.5 - Upper Forearm: 0.3 - Mid Forearm: 0.4 - Distal Forearm: 0.4 LEFT UPPER EXTREMITY: Brachial Artery (Diameter, in cm): 0.6 Radial Artery (Diameter, in cm): 0.4 Basilic Vein (Diameter, in cm): - Upper Arm: Not measured. - Mid Arm: 0.3 - Lower Arm: 0.5 - Antecubital: 0.3 - Upper Forearm: 0.3 - Mid Forearm: 0.3 - Distal Forearm: 0.2 Cephalic Vein (Diameter, in cm): - Upper Arm: 0.3 - Mid Arm: 0.4 - Lower Arm: 0.4 - Antecubital: 0.5 - Upper Forearm: 0.4 - Mid Forearm: 0.3 - Distal Forearm: 0.2 Additional Findings: Right brachial artery velocity is 121 cm/s. Right radial artery velocity is 89 c m/s. Left brachial artery velocity is 113 cm/s. Left radial artery velocity is 93 cm/s. IMPRESSION: 1. Upper extremity venous mapping as above. Scribed by: Reyna Card RDMS, RVT Scribed: 01/26/2021 11:50 AM I have reviewed the images, agree with this report, and edited this report as needed. Signer Name: Philip Hu MD Signed: 01/26/2021 12:58 PM Workstation Name: [id number]
--- NOTE | 2021-01-26 19:17 | Progress Note ---
Assessment and Plan Assessment and plan: #Hypertensive emergency -Continue p.o. antihypertensives: Coreg 25 mg twice daily, nifedipine 60 mg twice daily, and p.o. hydralazine 50 mg every 8hrs -Blood pressure should improve with initiation of hemodialysis -Continue telemetry. -SBP goal <160. Continue to monitor. #MOHINDER versus ATN versus ESRD -Creatinine 40, BUN 155 -Nephrology consulted; appreciate recs -Renal ultrasound negative for hydronephrosis or renal cysts. Consistent with medical renal disease. -Vascular surgery consulted for permacath placement; hemodialysis access obtained 01/25/2021 (Vas-Cath) -Renally dose medications and avoid nephrotoxic drugs. #Hyperphosphatemia -Phosphorus 12.7 -Continue sevelamer 2400 mg 3 times daily with meals. -We will monitor with repeat phosphorus in the morning. #Hypocalcemia -Calcium 7.8 -Starting calcitriol 0.5 micrograms daily #Hyponatremiaresolved -Sodium 132 -Continue to monitor #Normocytic anemia -Hemoglobin 6.2 -Possibly anemia of chronic disease. Transfuse 1 unit packed RBC. Will recheck with CBC. #Advanced care planning -Disease education conducted, care plan discussed, diagnoses discussed, prognosis discussed, and patient acknowledges understanding with care plan -Time: +30 mins #Discharge planning - Patient is pending final nephrology recommendations and establishment of outpatient hemodialysis chair. - Case management has been made aware. - Discharge is tentatively 24-72 hours. Disposition Plan: Continue medical management Total Time Spent with Patient (Minutes): 45 minutes History Interval history: No acute events overnight. Hospitalist Physical - Constitutional Vitals: Temp Pulse Resp BP Pulse Ox 98.3 F 90 18 141/88 97 01/26/21 15:07 01/26/21 15:07 01/26/21 15:07 01/26/21 15:07 01/26/21 15:07 General appearance: Present: no acute distress, well-nourished, obese - EENT Eyes: Present: PERRL, EOM intact ENT: hearing intact, clear oral mucosa, dentition normal - Neck Neck: Present: supple, normal ROM - Respiratory Respiratory effort: normal Respiratory: bilateral: CTA Details: Permacath in right upper chest. - Cardiovascular Rhythm: regular Heart Sounds: Present: S1 & S2 - Extremities Extremities: no ischemia, pulses intact, pulses symmetrical, No edema, normal temperature, normal color, Full ROM Peripheral Pulses: within normal limits - Abdominal General gastrointestinal: soft, non-tender, non-distended, normal bowel sounds - Integumentary Integumentary: Present: clear, warm, dry - Psychiatric Psychiatric: appropriate mood/affect, intact judgment & insight, cooperative - Neurologic Neurologic: CNII-XII intact, moves all extremities - Allied Health Allied health notes reviewed: nursing HEART Score - HEART Score EKG: Normal Age: < 45 Risk factors: 1-2 risk factors Troponin: < normal limit - Critical Actions Critical Actions: 0-3 pts:0.9-1.7%risk of adverse cardiac event.Candidate for discharge Results - Labs CBC & Chem 7: 01/26/21 04:36 01/26/21 04:36 Labs: Laboratory Last Values WBC 12.0 K/mm3 (4.5-11.0) H 01/26/21 04:36 RBC 2.22 M/mm3 (3.65-5.03) L 01/26/21 04:36 Hgb 6.8 gm/dl (11.8-15.2) L 01/26/21 04:36 Hct 20.8 % (35.5-45.6) L 01/26/21 04:36 MCV 94 fl (84-94) 01/26/21 04:36 MCH 31 pg (28-32) 01/26/21 04:36 MCHC 33 % (32-34) 01/26/21 04:36 RDW 18.7 % (13.2-15.2) H 01/26/21 04:36 Plt Count 289 K/mm3 (140-440) 01/26/21 04:36 Lymph % (Auto) 10.5 % (13.4-35.0) L 01/26/21 04:36 [place] % (Auto) 7.6 % (0.0-7.3) H 01/26/21 04:36 Eos % (Auto) 2.2 % (0.0-4.3) 01/26/21 04:36 Baso % (Auto) 0.5 % (0.0-1.8) 01/26/21 04:36 Lymph # (Auto) 1.3 K/mm3 (1.2-5.4) 01/26/21 04:36 [place] # (Auto) 0.9 K/mm3 (0.0-0.8) H 01/26/21 04:36 Eos # (Auto) 0.3 K/mm3 (0.0-0.4) 01/26/21 04:36 Baso # (Auto) 0.1 K/mm3 (0.0-0.1) 01/26/21 04:36 Add Manual Diff Complete 01/25/21 04:36 Total Counted 100 01/25/21 04:36 Seg Neutrophils % 79.2 % (40.0-70.0) H 01/26/21 04:36 Seg Neuts % (Manual) 83.0 % (40.0-70.0) H 01/25/21 04:36 Band Neutrophils % 1.0 % 01/25/21 04:36 Lymphocytes % (Manual) 11.0 % (13.4-35.0) L 01/25/21 04:36 Monocytes % (Manual) 2.0 % (0.0-7.3) 01/25/21 04:36 Eosinophils % (Manual) 3.0 % (0.0-4.3) 01/25/21 04:36 Nucleated RBC % Not Reportable 01/25/21 04:36 Seg Neutrophils # 9.5 K/mm3 (1.8-7.7) H 01/26/21 04:36 Seg Neutrophils # Man 10.0 K/mm3 (1.8-7.7) H 01/25/21 04:36 Band Neutrophils # 0.1 K/mm3 01/25/21 04:36 Lymphocytes # (Manual) 1.3 K/mm3 (1.2-5.4) 01/25/21 04:36 Abs React Lymphs (Man) 0.0 K/mm3 01/25/21 04:36 Monocytes # (Manual) 0.2 K/mm3 (0.0-0.8) 01/25/21 04:36 Eosinophils # (Manual) 0.4 K/mm3 (0.0-0.4) 01/25/21 04:36 Basophils # (Manual) 0.0 K/mm3 (0.0-0.1) 01/25/21 04:36 Metamyelocytes # 0.0 K/mm3 01/25/21 04:36 Myelocytes # 0.0 K/mm3 01/25/21 04:36 Promyelocytes # 0.0 K/mm3 01/25/21 04:36 Blast Cells # 0.0 K/mm3 01/25/21 04:36 WBC Morphology Not Reportable 01/25/21 04:36 Hypersegmented Neuts Not Reportable 01/25/21 04:36 Hyposegmented Neuts Not Reportable 01/25/21 04:36 Hypogranular Neuts Not Reportable 01/25/21 04:36 Smudge Cells Not Reportable 01/25/21 04:36 Toxic Granulation Not Reportable 01/25/21 04:36 Toxic Vacuolation Not Reportable 01/25/21 04:36 Dohle Bodies Not Reportable 01/25/21 04:36 Pelger-Huet Anomaly Not Reportable 01/25/21 04:36 Jerry Rods Not Reportable 01/25/21 04:36 Platelet Estimate Consistent w auto 01/25/21 04:36 Clumped Platelets Not Reportable 01/25/21 04:36 Plt Clumps, EDTA Not Reportable 01/25/21 04:36 Large Platelets Few 01/25/21 04:36 Giant Platelets Rare 01/25/21 04:36 Platelet Satelliting Not Reportable 01/25/21 04:36 Plt Morphology Comment Not Reportable 01/25/21 04:36 RBC Morphology Not Reportable 01/25/21 04:36 Dimorphic RBCs Not Reportable 01/25/21 04:36 Polychromasia Few 01/25/21 04:36 Hypochromasia 3+ 01/25/21 04:36 Poikilocytosis Not Reportable 01/25/21 04:36 Anisocytosis 1+ 01/25/21 04:36 Microcytosis Not Reportable 01/25/21 04:36 Macrocytosis 1+ 01/25/21 04:36 Spherocytes Not Reportable 01/25/21 04:36 Pappenheimer Bodies Not Reportable 01/25/21 04:36 Sickle Cells Not Reportable 01/25/21 04:36 Target Cells Not Reportable 01/25/21 04:36 Tear Drop Cells Not Reportable 01/25/21 04:36 Ovalocytes Not Reportable 01/25/21 04:36 Helmet Cells Not Reportable 01/25/21 04:36 [place] Bodies Not Reportable 01/25/21 04:36 [place] Rings Not Reportable 01/25/21 04:36 Shayna Cells Not Reportable 01/25/21 04:36 Bite Cells Not Reportable 01/25/21 04:36 Crenated Cell Not Reportable 01/25/21 04:36 Elliptocytes Not Reportable 01/25/21 04:36 Acanthocytes (Spur) Not Reportable 01/25/21 04:36 Rouleaux Not Reportable 01/25/21 04:36 Hemoglobin C Crystals Not Reportable 01/25/21 04:36 Schistocytes 2+ 01/25/21 04:36 Malaria parasites Not Reportable 01/25/21 04:36 Humberto Bodies Not Reportable 01/25/21 04:36 Hem Pathologist Commnt No 01/25/21 04:36 Sodium 132 mmol/L (137-145) L D 01/26/21 04:36 Potassium 3.6 mmol/L (3.6-5.0) 01/26/21 04:36 Chloride 89.9 mmol/L (98-107) L 01/26/21 04:36 Carbon Dioxide 23 mmol/L (22-30) D 01/26/21 04:36 Anion Gap 23 mmol/L 01/26/21 04:36 BUN 95 mg/dL (9-20) H 01/26/21 04:36 Creatinine 25.1 mg/dL (0.8-1.3) H 01/26/21 04:36 Estimated GFR 3 ml/min 01/26/21 04:36 BUN/Creatinine Ratio 4 % 01/26/21 04:36 Glucose 101 mg/dL (75-100) H 01/26/21 04:36 Calcium 7.8 mg/dL (8.4-10.2) L 01/26/21 04:36 Phosphorus 8.00 mg/dL (2.5-4.5) H D 01/26/21 04:36 Magnesium 2.10 mg/dL (1.7-2.3) 01/26/21 04:36 Iron 41 ug/dL (49-181) L 01/25/21 04:36 TIBC 223 mcg/dL (250-450) L 01/25/21 04:36 Ferritin 152.0 ng/mL (30.0-300.0) 01/25/21 04:36 Total Bilirubin 0.40 mg/dL (0.1-1.2) 01/26/21 04:36 AST 5 units/L (5-40) 01/26/21 04:36 ALT 5 units/L (7-56) L 01/26/21 04:36 Alkaline Phosphatase 44 units/L (35-129) 01/26/21 04:36 Total Protein 5.1 g/dL (6.3-8.2) L D 01/26/21 04:36 Albumin 3.0 g/dL (3.9-5) L 01/26/21 04:36 Albumin/Globulin Ratio 1.4 % 01/26/21 04:36 Lipase 131 units/L (13-60) H 01/23/21 13:43 PTH Intact 391.8 pg/mL (15-65) H 01/25/21 04:36 Hepatitis A IgM Ab Non-reactive (NonReactive) 01/24/21 11:50 Hep Bs Antigen Nonreactive (Negative) 01/24/21 11:50 Hep B Core IgM Ab Non-reactive (NonReactive) 01/24/21 11:50 Hepatitis C Antibody Non-reactive (NonReactive) 01/24/21 11:50 Blood Type O NEGATIVE 01/25/21 13:55 Antibody Screen Negative 01/25/21 13:55 Crossmatch See Detail 01/25/21 13:55 [place]/IV: Voiding Method Urinal Active Medications - Current Medications Current Medications: Generic Name Dose Route Start Last Admin Trade Name Freq PRN Reason Stop Dose Admin Acetaminophen 650 mg 01/23/21 17:40 Acetaminophen 325 Mg Tab PO Q4H PRN Pain MILD(1-3)/Fever >100.5/ESCAMILLA Calcitriol 0.5 mcg 01/26/21 10:00 01/26/21 09:19 Calcitriol 0.5 Mcg Cap PO 0.5 mcg QDAY SYDNIE Administration Calcium Acetate 1,334 mg 01/24/21 14:00 01/26/21 15:05 Calcium Acetate 667 Mg Cap PO Not Given TID SYDNIE Carvedilol 25 mg 01/24/21 15:24 01/26/21 09:18 Carvedilol 12.5 Mg Tab PO 25 mg BID SYDNIE Administration Hydralazine HCl 50 mg 01/23/21 18:00 01/26/21 15:05 Hydralazine 25 Mg Tab PO Not Given Q8HR SYDNIE Hydralazine HCl 10 mg 01/23/21 18:00 01/24/21 10:37 Hydralazine 20 Mg/1 Ml Inj IV 10 mg Q3H PRN Administration Blood Pressure Hydromorphone HCl 0.5 mg 01/23/21 17:40 01/24/21 15:19 Hydromorphone 1 Mg/1 Ml Inj IV 0.5 mg Q3H PRN Administration Pain , Severe (7-10) Sodium Chloride 100 mls @ 999 mls/hr 01/26/21 11:00 Nacl 0.9% IV BRIAN PRN Hypotension Metoclopramide HCl 10 mg 01/23/21 17:40 Metoclopramide 10 Mg/2 Ml Inj IV Q6H PRN Nausea And Vomiting Nifedipine 60 mg 01/24/21 10:00 01/26/21 09:18 Nifedipine Xl 60 Mg Tab PO 60 mg Q12HR SYDNIE Administration Ondansetron HCl 4 mg 01/23/21 17:40 01/26/21 09:19 Ondansetron 4 Mg/2 Ml Inj IV 4 mg Q3H PRN Administration Nausea And Vomiting Oxycodone/Acetaminophen 1 tab 01/23/21 17:40 01/26/21 07:55 Oxycodone /Acetaminophen 5-325mg Tab PO 1 tab Q6H PRN Administration Pain, Moderate (4-6) Sevelamer Carbonate 2,400 mg 01/25/21 11:30 01/26/21 15:40 Sevelamer Carbonate 800 Mg Tab PO Not Given AC SYDNIE Sodium Chloride 10 ml 01/23/21 22:00 01/26/21 09:19 Sodium Chloride 0.9% 10 Ml Flush Syringe IV 10 ml BID SYDNIE Administration Sodium Chloride 10 ml 01/23/21 17:40 Sodium Chloride 0.9% 10 Ml Flush Syringe IV PRN PRN LINE FLUSH
[2021-01-27 05:49] LABS: Hematocrit 21.4 % (35.5-45.6); Mean Corpuscular HGB Conc 33 % (32-34); Mean Corpuscular Volume 94 fl (84-94); Platelet Count 307 K/mm3 (140-440); Red Blood Count 2.27 M/mm3 (3.65-5.03); Red Cell Distribution Width 18.7 % (13.2-15.2)
[2021-01-27 05:54] LABS: Calcium 9.2 mg/dL (8.4-10.2)
[2021-01-27] MEDS: hydrALAZINE 25 MG TAB PO SCH ×3 (06:13→21:15)
[2021-01-27 08:43] LABS: Anisocytosis 1+; Band Neutrophils # (Manual) 0.3 K/mm3; Total Cells Counted 100
--- NOTE | 2021-01-27 09:05 | Progress Note ---
Assessment and Plan Assessment: Acute Renal Failure secondary to Ischemic ATN vs Prerenal vs CKD stage 5 from Hypertensive Nephrosclerosis Uncontrolled Hypertension Nausea/Vomiting/ Abdominal Pain Questionable Pancreatitis and Colitis Leukocytosis Hyponatremia Hyperphosphatemia Anemia Plan: Renal labs reviewed. Serum creatinine 17.2 today. Hemodialysis again today for clearance mainly S/P perm-catheter placement on 01/25/21. Baseline serum creatinine unknown but likely has advanced CKD due to HTN Renal Ultrasound shows-Medical renal disease. No Hydronephrosis For further work-up, ordered ALAN, ANCA, Hep panel, C3, C4, Ch50, Anti-GBM, SPEP, serum free light chains-pending Urine lytes, protein and eosinophils-pending Hyperphosphatemia, Improving-On Calcium Acetate 1300 mg po TID Anemia-On Epogen 20,000 units TIW. Transfuse as needed Obtain daily weights Monitor I/O's daily Renally dose medications Avoid nephrotoxic agents Assess dialysis needs daily Consulted onboard for outpatient HD placement to [facility] Plan of care reviewed by Dr. Vaughn Subjective Date of service: 01/27/21 Principal diagnosis: Severe Renal Failure Interval history: Patient seen lying in bed. Reviewed renal plan. Objective - Vital Signs Vital signs: Vital Signs - 12hr 01/26/21 01/26/21 01/26/21 21:28 21:29 21:59 Temperature 99.2 F Pulse Rate 99 H 97 H Respiratory 18 Rate Blood Pressure 179/104 Blood Pressure 182/100 180/102 [Right] O2 Sat by Pulse 96 Oximetry 01/26/21 01/26/21 01/27/21 22:00 23:20 00:40 Temperature 99.4 F 99.4 F Pulse Rate 103 H 99 H 99 H Respiratory 16 18 18 Rate Blood Pressure 174/104 164/101 Blood Pressure 164/101 [Right] O2 Sat by Pulse 99 99 96 Oximetry 01/27/21 01/27/21 01/27/21 05:32 06:13 07:28 Temperature 99.1 F Pulse Rate 92 H 94 H Respiratory 18 16 Rate Blood Pressure 161/100 Blood Pressure 134/84 [Right] O2 Sat by Pulse 96 99 Oximetry 01/27/21 07:57 Temperature 98.3 F Pulse Rate 97 H Respiratory 20 Rate Blood Pressure 153/91 Blood Pressure [Right] O2 Sat by Pulse 96 Oximetry - General Appearance General appearance: well-developed, appears stated age EENT: ATNC, PERRL, hearing intact, vision intact Neck: no JVD, supple Respiratory: Present: Decreased Breath Sounds Cardiology: S1S2 Gastrointestinal: normoactive bowel sounds Integumentary: warm and dry Neurologic: alert and oriented x3 Musculoskeletal: other (no edema) - Lab 01/27/21 04:56 01/27/21 04:56 Most recent lab results Calcium 9.2 mg/dL (8.4-10.2) D 01/27/21 04:56 Phosphorus 6.20 mg/dL (2.5-4.5) H D 01/27/21 04:56 Magnesium 1.80 mg/dL (1.7-2.3) 01/27/21 04:56 Medications & Allergies - Medications Allergies/Adverse Reactions: Allergies No Known Allergies Allergy (Verified 01/23/21 10:18) Home Medications: Home Medications Medication Instructions Recorded Confirmed Last Taken Type No Known Home Medications [No 01/23/21 01/23/21 Unknown History Reported Home Medications] Active Medications: Generic Name Dose Route Start Last Admin Trade Name Freq PRN Reason Stop Dose Admin Acetaminophen 650 mg 01/23/21 17:40 Acetaminophen 325 Mg Tab PO Q4H PRN Pain MILD(1-3)/Fever >100.5/ESCAMILLA Calcitriol 0.5 mcg 01/26/21 10:00 01/26/21 09:19 Calcitriol 0.5 Mcg Cap PO 0.5 mcg QDAY SYDNIE Administration Calcium Acetate 1,334 mg 01/24/21 14:00 01/26/21 22:00 Calcium Acetate 667 Mg Cap PO 1,334 mg TID SYDNIE Administration Carvedilol 25 mg 01/24/21 15:24 01/26/21 21:59 Carvedilol 12.5 Mg Tab PO 25 mg BID SYDNIE Administration Hydralazine HCl 50 mg 01/23/21 18:00 01/27/21 06:13 Hydralazine 25 Mg Tab PO 50 mg Q8HR SYDNIE Administration Hydralazine HCl 10 mg 01/23/21 18:00 01/24/21 10:37 Hydralazine 20 Mg/1 Ml Inj IV 10 mg Q3H PRN Administration Blood Pressure Hydromorphone HCl 0.5 mg 01/23/21 17:40 01/24/21 15:19 Hydromorphone 1 Mg/1 Ml Inj IV 0.5 mg Q3H PRN Administration Pain , Severe (7-10) Sodium Chloride 100 mls @ 999 mls/hr 01/26/21 11:00 Nacl 0.9% IV BRIAN PRN Hypotension Metoclopramide HCl 10 mg 01/23/21 17:40 Metoclopramide 10 Mg/2 Ml Inj IV Q6H PRN Nausea And Vomiting Nifedipine 60 mg 01/24/21 10:00 01/26/21 22:00 Nifedipine Xl 60 Mg Tab PO 60 mg Q12HR SYDNIE Administration Ondansetron HCl 4 mg 01/23/21 17:40 01/26/21 09:19 Ondansetron 4 Mg/2 Ml Inj IV 4 mg Q3H PRN Administration Nausea And Vomiting Oxycodone/Acetaminophen 1 tab 01/23/21 17:40 01/26/21 22:08 Oxycodone /Acetaminophen 5-325mg Tab PO 1 tab Q6H PRN Administration Pain, Moderate (4-6) Sevelamer Carbonate 2,400 mg 01/25/21 11:30 01/26/21 15:40 Sevelamer Carbonate 800 Mg Tab PO Not Given AC SYDNIE Sodium Chloride 10 ml 01/23/21 22:00 01/26/21 22:01 Sodium Chloride 0.9% 10 Ml Flush Syringe IV 10 ml BID SYDNIE Administration Sodium Chloride 10 ml 01/23/21 17:40 Sodium Chloride 0.9% 10 Ml Flush Syringe IV PRN PRN LINE FLUSH
--- NOTE | 2021-01-27 09:32 | Progress Note ---
Assessment and Plan Assessment and plan: #Hypertensive emergency -Continue p.o. antihypertensives: Coreg 25 mg twice daily, nifedipine 60 mg twice daily, and p.o. hydralazine 50 mg every 8hrs -Blood pressure should improve with initiation of hemodialysis -Continue telemetry. -SBP goal <160. Continue to monitor. #MOHINDER versus ATN versus ESRD -Creatinine 17 -Nephrology consulted; appreciate recs -Renal ultrasound negative for hydronephrosis or renal cysts. Consistent with medical renal disease. -Vascular surgery consulted for permacath placement; hemodialysis access obtained 01/25/2021 (Vas-Cath) -Renally dose medications and avoid nephrotoxic drugs. #Hyperphosphatemia-proving -Phosphorus 6.2 -Continue sevelamer 2400 mg 3 times daily with meals. -We will monitor with repeat phosphorus in the morning. #Hypocalcemia -Calcium 7.8 -Continue calcitriol 0.5 micrograms daily #Hyponatremiaresolved -Sodium 132 -Continue to monitor #Normocytic anemia -Hemoglobin 7.0 -Possibly anemia of chronic disease. Transfuse 1 unit packed RBC. Will recheck with CBC. #Advanced care planning -Disease education conducted, care plan discussed, diagnoses discussed, prognosis discussed, and patient acknowledges understanding with care plan -Time: +30 mins #Discharge planning - Patient is pending final nephrology recommendations and establishment of outpatient hemodialysis chair. Application has already been sent out for [facility]. - Case management has been made aware. - Discharge is tentatively 24-72 hours. Disposition Plan: Pending outpatient HD chair Total Time Spent with Patient (Minutes): 45 minutes History Interval history: No acute events overnight. Hospitalist Physical - Constitutional Vitals: Temp Pulse Resp BP Pulse Ox 98.3 F 97 H 20 153/91 96 01/27/21 07:57 01/27/21 07:57 01/27/21 07:57 01/27/21 07:57 01/27/21 07:57 General appearance: Present: no acute distress, well-nourished, obese - EENT Eyes: Present: PERRL, EOM intact ENT: hearing intact, clear oral mucosa, dentition normal - Neck Neck: Present: supple, normal ROM - Respiratory Respiratory effort: normal Respiratory: bilateral: CTA Details: Permacath in right upper chest. - Cardiovascular Rhythm: regular Heart Sounds: Present: S1 & S2 - Extremities Extremities: no ischemia, pulses intact, pulses symmetrical, No edema, normal temperature, normal color, Full ROM Peripheral Pulses: within normal limits - Abdominal General gastrointestinal: soft, non-tender, non-distended, normal bowel sounds - Integumentary Integumentary: Present: clear, warm, dry - Psychiatric Psychiatric: appropriate mood/affect, intact judgment & insight, memory intact, cooperative - Neurologic Neurologic: CNII-XII intact, moves all extremities - Allied Health Allied health notes reviewed: nursing HEART Score - HEART Score EKG: Normal Age: < 45 Risk factors: 1-2 risk factors Troponin: < normal limit - Critical Actions Critical Actions: 0-3 pts:0.9-1.7%risk of adverse cardiac event.Candidate for discharge Results - Labs CBC & Chem 7: 01/27/21 04:56 01/27/21 04:56 Labs: Laboratory Last Values WBC 12.6 K/mm3 (4.5-11.0) H 01/27/21 04:56 RBC 2.27 M/mm3 (3.65-5.03) L 01/27/21 04:56 Hgb 7.0 gm/dl (11.8-15.2) L 01/27/21 04:56 Hct 21.4 % (35.5-45.6) L 01/27/21 04:56 MCV 94 fl (84-94) 01/27/21 04:56 MCH 31 pg (28-32) 01/27/21 04:56 MCHC 33 % (32-34) 01/27/21 04:56 RDW 18.7 % (13.2-15.2) H 01/27/21 04:56 Plt Count 307 K/mm3 (140-440) 01/27/21 04:56 Lymph % (Auto) 10.5 % (13.4-35.0) L 01/26/21 04:36 [place] % (Auto) 7.6 % (0.0-7.3) H 01/26/21 04:36 Eos % (Auto) 2.2 % (0.0-4.3) 01/26/21 04:36 Baso % (Auto) 0.5 % (0.0-1.8) 01/26/21 04:36 Lymph # (Auto) 1.3 K/mm3 (1.2-5.4) 01/26/21 04:36 [place] # (Auto) 0.9 K/mm3 (0.0-0.8) H 01/26/21 04:36 Eos # (Auto) 0.3 K/mm3 (0.0-0.4) 01/26/21 04:36 Baso # (Auto) 0.1 K/mm3 (0.0-0.1) 01/26/21 04:36 Add Manual Diff Complete 01/27/21 04:56 Total Counted 100 01/27/21 04:56 Seg Neutrophils % 79.2 % (40.0-70.0) H 01/26/21 04:36 Seg Neuts % (Manual) 91.0 % (40.0-70.0) H 01/27/21 04:56 Band Neutrophils % 2.0 % 01/27/21 04:56 Lymphocytes % (Manual) 4.0 % (13.4-35.0) L 01/27/21 04:56 Monocytes % (Manual) 3.0 % (0.0-7.3) 01/27/21 04:56 Eosinophils % (Manual) 3.0 % (0.0-4.3) 01/25/21 04:36 Nucleated RBC % Not Reportable 01/27/21 04:56 Seg Neutrophils # 9.5 K/mm3 (1.8-7.7) H 01/26/21 04:36 Seg Neutrophils # Man 11.5 K/mm3 (1.8-7.7) H 01/27/21 04:56 Band Neutrophils # 0.3 K/mm3 01/27/21 04:56 Lymphocytes # (Manual) 0.5 K/mm3 (1.2-5.4) L 01/27/21 04:56 Abs React Lymphs (Man) 0.0 K/mm3 01/27/21 04:56 Monocytes # (Manual) 0.4 K/mm3 (0.0-0.8) 01/27/21 04:56 Eosinophils # (Manual) 0.0 K/mm3 (0.0-0.4) 01/27/21 04:56 Basophils # (Manual) 0.0 K/mm3 (0.0-0.1) 01/27/21 04:56 Metamyelocytes # 0.0 K/mm3 01/27/21 04:56 Myelocytes # 0.0 K/mm3 01/27/21 04:56 Promyelocytes # 0.0 K/mm3 01/27/21 04:56 Blast Cells # 0.0 K/mm3 01/27/21 04:56 WBC Morphology Not Reportable 01/27/21 04:56 Hypersegmented Neuts Not Reportable 01/27/21 04:56 Hyposegmented Neuts Not Reportable 01/27/21 04:56 Hypogranular Neuts Not Reportable 01/27/21 04:56 Smudge Cells Not Reportable 01/27/21 04:56 Toxic Granulation Not Reportable 01/27/21 04:56 Toxic Vacuolation Not Reportable 01/27/21 04:56 Dohle Bodies Not Reportable 01/27/21 04:56 Pelger-Huet Anomaly Not Reportable 01/27/21 04:56 Jerry Rods Not Reportable 01/27/21 04:56 Platelet Estimate Not Reportable 01/27/21 04:56 Clumped Platelets Not Reportable 01/27/21 04:56 Plt Clumps, EDTA Not Reportable 01/27/21 04:56 Large Platelets Not Reportable 01/27/21 04:56 Giant Platelets Not Reportable 01/27/21 04:56 Platelet Satelliting Not Reportable 01/27/21 04:56 Plt Morphology Comment Not Reportable 01/27/21 04:56 RBC Morphology Not Reportable 01/27/21 04:56 Dimorphic RBCs Not Reportable 01/27/21 04:56 Polychromasia Not Reportable 01/27/21 04:56 Hypochromasia Not Reportable 01/27/21 04:56 Poikilocytosis Not Reportable 01/27/21 04:56 Anisocytosis 1+ 01/27/21 04:56 Microcytosis Not Reportable 01/27/21 04:56 Macrocytosis Not Reportable 01/27/21 04:56 Spherocytes Not Reportable 01/27/21 04:56 Pappenheimer Bodies Not Reportable 01/27/21 04:56 Sickle Cells Not Reportable 01/27/21 04:56 Target Cells Not Reportable 01/27/21 04:56 Tear Drop Cells Not Reportable 01/27/21 04:56 Ovalocytes Not Reportable 01/27/21 04:56 Helmet Cells Not Reportable 01/27/21 04:56 Christopher-Atlas Bodies Not Reportable 01/27/21 04:56 Baker Rings Not Reportable 01/27/21 04:56 Shayna Cells Not Reportable 01/27/21 04:56 Bite Cells Not Reportable 01/27/21 04:56 Crenated Cell Not Reportable 01/27/21 04:56 Elliptocytes Not Reportable 01/27/21 04:56 Acanthocytes (Spur) Not Reportable 01/27/21 04:56 Rouleaux Not Reportable 01/27/21 04:56 Hemoglobin C Crystals Not Reportable 01/27/21 04:56 Schistocytes Not Reportable 01/27/21 04:56 Malaria parasites Not Reportable 01/27/21 04:56 Humberto Bodies Not Reportable 01/27/21 04:56 Hem Pathologist Commnt No 01/27/21 04:56 Sodium 135 mmol/L (137-145) L 01/27/21 04:56 Potassium 3.6 mmol/L (3.6-5.0) 01/27/21 04:56 Chloride 94.9 mmol/L (98-107) L 01/27/21 04:56 Carbon Dioxide 25 mmol/L (22-30) 01/27/21 04:56 Anion Gap 19 mmol/L 01/27/21 04:56 BUN 49 mg/dL (9-20) H 01/27/21 04:56 Creatinine 17.2 mg/dL (0.8-1.3) H 01/27/21 04:56 Estimated GFR 4 ml/min 01/27/21 04:56 BUN/Creatinine Ratio 3 % 01/27/21 04:56 Glucose 103 mg/dL (75-100) H 01/27/21 04:56 Calcium 9.2 mg/dL (8.4-10.2) D 01/27/21 04:56 Phosphorus 6.20 mg/dL (2.5-4.5) H D 01/27/21 04:56 Magnesium 1.80 mg/dL (1.7-2.3) 01/27/21 04:56 Iron 41 ug/dL (49-181) L 01/25/21 04:36 TIBC 223 mcg/dL (250-450) L 01/25/21 04:36 Ferritin 152.0 ng/mL (30.0-300.0) 01/25/21 04:36 Total Bilirubin 0.40 mg/dL (0.1-1.2) 01/26/21 04:36 AST 5 units/L (5-40) 01/26/21 04:36 ALT 5 units/L (7-56) L 01/26/21 04:36 Alkaline Phosphatase 44 units/L (35-129) 01/26/21 04:36 Total Protein 5.1 g/dL (6.3-8.2) L D 01/26/21 04:36 Albumin 3.0 g/dL (3.9-5) L 01/26/21 04:36 Albumin/Globulin Ratio 1.4 % 01/26/21 04:36 Lipase 131 units/L (13-60) H 01/23/21 13:43 PTH Intact 391.8 pg/mL (15-65) H 01/25/21 04:36 Hepatitis A IgM Ab Non-reactive (NonReactive) 01/24/21 11:50 Hep Bs Antigen Nonreactive (Negative) 01/24/21 11:50 Hep B Core IgM Ab Non-reactive (NonReactive) 01/24/21 11:50 Hepatitis C Antibody Non-reactive (NonReactive) 01/24/21 11:50 Blood Type O NEGATIVE 01/25/21 13:55 Antibody Screen Negative 01/25/21 13:55 Crossmatch See Detail 01/25/21 13:55 Burton/IV: Voiding Method Urinal Active Medications - Current Medications Current Medications: Generic Name Dose Route Start Last Admin Trade Name Freq PRN Reason Stop Dose Admin Acetaminophen 650 mg 01/23/21 17:40 Acetaminophen 325 Mg Tab PO Q4H PRN Pain MILD(1-3)/Fever >100.5/ES[place]ILLA Calcitriol 0.5 mcg 01/26/21 10:00 01/26/21 09:19 Calcitriol 0.5 Mcg Cap PO 0.5 mcg QDAY SYDNIE Administration Calcium Acetate 1,334 mg 01/24/21 14:00 01/26/21 22:00 Calcium Acetate 667 Mg Cap PO 1,334 mg TID SYDNIE Administration Carvedilol 25 mg 01/24/21 15:24 01/26/21 21:59 Carvedilol 12.5 Mg Tab PO 25 mg BID SYDNIE Administration Hydralazine HCl 50 mg 01/23/21 18:00 01/27/21 06:13 Hydralazine 25 Mg Tab PO 50 mg Q8HR SYDNIE Administration Hydralazine HCl 10 mg 01/23/21 18:00 01/24/21 10:37 Hydralazine 20 Mg/1 Ml Inj IV 10 mg Q3H PRN Administration Blood Pressure Hydromorphone HCl 0.5 mg 01/23/21 17:40 01/24/21 15:19 Hydromorphone 1 Mg/1 Ml Inj IV 0.5 mg Q3H PRN Administration Pain , Severe (7-10) Sodium Chloride 100 mls @ 999 mls/hr 01/26/21 11:00 Nacl 0.9% IV BRIAN PRN Hypotension Metoclopramide HCl 10 mg 01/23/21 17:40 Metoclopramide 10 Mg/2 Ml Inj IV Q6H PRN Nausea And Vomiting Nifedipine 60 mg 01/24/21 10:00 01/26/21 22:00 Nifedipine Xl 60 Mg Tab PO 60 mg Q12HR SYDNIE Administration Ondansetron HCl 4 mg 01/23/21 17:40 01/26/21 09:19 Ondansetron 4 Mg/2 Ml Inj IV 4 mg Q3H PRN Administration Nausea And Vomiting Oxycodone/Acetaminophen 1 tab 01/23/21 17:40 01/26/21 22:08 Oxycodone /Acetaminophen 5-325mg Tab PO 1 tab Q6H PRN Administration Pain, Moderate (4-6) Sevelamer Carbonate 2,400 mg 01/25/21 11:30 01/26/21 15:40 Sevelamer Carbonate 800 Mg Tab PO Not Given AC SYDNIE Sodium Chloride 10 ml 01/23/21 22:00 01/26/21 22:01 Sodium Chloride 0.9% 10 Ml Flush Syringe IV 10 ml BID SYDNIE Administration Sodium Chloride 10 ml 01/23/21 17:40 Sodium Chloride 0.9% 10 Ml Flush Syringe IV PRN PRN LINE FLUSH
[2021-01-27] MEDS: SEVELAMER CARBONATE 800 MG TAB PO SCH ×3 (10:17→19:01)
[2021-01-27] MEDS: CALCIUM ACETATE 667 MG CAP PO SCH ×3 (10:17→21:15)
[2021-01-27] MEDS: hydrALAZINE 20 MG/1 ML INJ IV PRN (10:27)
[2021-01-27] MEDS: carvediloL 12.5 MG TAB PO SCH ×2 (12:02→21:15)
[2021-01-27] MEDS: NIFEdipine XL 60 MG TAB PO SCH ×2 (12:02→21:15)
[2021-01-27] MEDS: CALCITRIOL 0.5 MCG CAP PO SCH (12:47)
[2021-01-28] MEDS: hydrALAZINE 20 MG/1 ML INJ IV PRN (03:48)
[2021-01-28] MEDS: hydrALAZINE 25 MG TAB PO SCH ×3 (05:30→21:34)
[2021-01-28 06:37] LABS: Calcium 9.8 mg/dL (8.4-10.2)
[2021-01-28] MEDS: SEVELAMER CARBONATE 800 MG TAB PO SCH ×3 (08:14→16:52)
[2021-01-28] MEDS: CALCIUM ACETATE 667 MG CAP PO SCH ×3 (08:14→21:34)
[2021-01-28] MEDS: NIFEdipine XL 60 MG TAB PO SCH ×2 (09:07→21:34)
[2021-01-28] MEDS: CALCITRIOL 0.5 MCG CAP PO SCH (09:07)
[2021-01-28] MEDS: carvediloL 12.5 MG TAB PO SCH ×2 (09:07→21:35)
--- NOTE | 2021-01-28 09:44 | Progress Note ---
Assessment and Plan Assessment: Acute Renal Failure secondary to Ischemic ATN vs Prerenal vs CKD stage 5 from Hypertensive Nephrosclerosis Uncontrolled Hypertension Nausea/Vomiting/ Abdominal Pain Questionable Pancreatitis and Colitis Leukocytosis Hyponatremia Hyperphosphatemia Anemia Plan: Renal labs reviewed. Serum creatinine 12.8 today, yesterday's was 17.2 today. S/P Hemodialysis yesterday. Had 3 treatments in a row. No dialysis today. Next treatment will be tomorrow on Friday. S/P perm-catheter placement on 01/25/21. Baseline serum creatinine unknown but likely has advanced CKD due to HTN Renal Ultrasound shows-Medical renal disease. No Hydronephrosis For further work-up, ordered ALAN, ANCA, Hep panel, C3, C4, Ch50, Anti-GBM, SPEP, serum free light chains-pending Urine lytes, protein and eosinophils-pending Hyperphosphatemia, Improving-On Calcium Acetate 1300 mg po TID Anemia-On Epogen 20,000 units TIW. Transfuse as needed Obtain daily weights Monitor I/O's daily Renally dose medications Avoid nephrotoxic agents Assess dialysis needs daily Case Management onboard for outpatient HD placement to [facility], in progress Plan of care reviewed by Dr. Vaughn Subjective Date of service: 01/28/21 Principal diagnosis: Severe Renal Failure Interval history: Patient seen lying in bed. Reviewed renal plan. Mother at bedside. Answered all questions. Objective - Vital Signs Vital signs: Vital Signs - 12hr 01/28/21 01/28/21 01/28/21 00:47 03:33 07:04 Temperature 99.1 F 98.8 F Pulse Rate 95 H 99 H Respiratory 20 20 18 Rate Blood Pressure 164/89 169/102 O2 Sat by Pulse 97 96 99 Oximetry - General Appearance General appearance: well-developed, appears stated age EENT: ATNC, PERRL, hearing intact, vision intact Neck: no JVD, supple Respiratory: Present: Decreased Breath Sounds Cardiology: S1S2 Gastrointestinal: normoactive bowel sounds Integumentary: warm and dry Neurologic: alert and oriented x3 Musculoskeletal: other (No edema) - Lab 01/27/21 04:56 01/28/21 05:26 Most recent lab results Calcium 9.8 mg/dL (8.4-10.2) 01/28/21 05:26 Phosphorus 5.10 mg/dL (2.5-4.5) H 12/19/21 05:26 Magnesium 1.80 mg/dL (1.7-2.3) 01/28/21 05:26 Medications & Allergies - Medications Allergies/Adverse Reactions: Allergies No Known Allergies Allergy (Verified 01/23/21 10:18) Home Medications: Home Medications Medication Instructions Recorded Confirmed Last Taken Type No Known Home Medications [No 01/23/21 01/23/21 Unknown History Reported Home Medications] Active Medications: Generic Name Dose Route Start Last Admin Trade Name Freq PRN Reason Stop Dose Admin Acetaminophen 650 mg 01/23/21 17:40 Acetaminophen 325 Mg Tab PO Q4H PRN Pain MILD(1-3)/Fever >100.5/[place] Calcitriol 0.5 mcg 01/26/21 10:00 01/28/21 09:07 Calcitriol 0.5 Mcg Cap PO 0.5 mcg QDAY SYDNIE Administration Calcium Acetate 1,334 mg 01/24/21 14:00 01/28/21 08:14 Calcium Acetate 667 Mg Cap PO 1,334 mg TID SYDNIE Administration Carvedilol 25 mg 01/24/21 15:24 01/28/21 09:07 Carvedilol 12.5 Mg Tab PO 25 mg BID SYDNIE Administration Hydralazine HCl 50 mg 01/23/21 18:00 01/28/21 05:30 Hydralazine 25 Mg Tab PO 50 mg Q8HR SYDNIE Administration Hydralazine HCl 10 mg 01/23/21 18:00 01/28/21 03:48 Hydralazine 20 Mg/1 Ml Inj IV 10 mg Q3H PRN Administration Blood Pressure Hydromorphone HCl 0.5 mg 01/23/21 17:40 01/24/21 15:19 Hydromorphone 1 Mg/1 Ml Inj IV 0.5 mg Q3H PRN Administration Pain , Severe (7-10) Sodium Chloride 100 mls @ 999 mls/hr 01/26/21 11:00 Nacl 0.9% IV BRIAN PRN Hypotension Metoclopramide HCl 10 mg 01/23/21 17:40 Metoclopramide 10 Mg/2 Ml Inj IV Q6H PRN Nausea And Vomiting Nifedipine 60 mg 01/24/21 10:00 01/28/21 09:07 Nifedipine Xl 60 Mg Tab PO 60 mg Q12HR SYDNIE Administration Ondansetron HCl 4 mg 01/23/21 17:40 01/26/21 09:19 Ondansetron 4 Mg/2 Ml Inj IV 4 mg Q3H PRN Administration Nausea And Vomiting Oxycodone/Acetaminophen 1 tab 01/23/21 17:40 01/26/21 22:08 Oxycodone /Acetaminophen 5-325mg Tab PO 1 tab Q6H PRN Administration Pain, Moderate (4-6) Sevelamer Carbonate 2,400 mg 01/25/21 11:30 01/28/21 08:14 Sevelamer Carbonate 800 Mg Tab PO 2,400 mg AC SYDNIE Administration Sodium Chloride 10 ml 01/23/21 22:00 01/27/21 21:16 Sodium Chloride 0.9% 10 Ml Flush Syringe IV 10 ml BID SYDNIE Administration Sodium Chloride 10 ml 01/23/21 17:40 Sodium Chloride 0.9% 10 Ml Flush Syringe IV PRN PRN LINE FLUSH
--- NOTE | 2021-01-28 11:43 | Progress Note ---
Assessment and Plan Assessment and plan: #Hypertensive emergency -Continue p.o. antihypertensives: Coreg 25 mg twice daily, nifedipine 60 mg twice daily, and p.o. hydralazine 50 mg every 8hrs -Blood pressure should improve with initiation of hemodialysis -Continue telemetry. -SBP goal <160. Continue to monitor. #MOHINDER versus ATN versus ESRD -Creatinine 12.8 -Nephrology consulted; appreciate recs -Renal ultrasound negative for hydronephrosis or renal cysts. Consistent with medical renal disease. -Vascular surgery consulted for permacath placement; hemodialysis access obtained 01/25/2021 (Vas-Cath) -Renally dose medications and avoid nephrotoxic drugs. #Hyperphosphatemia-improving -Phosphorus 6.2 -Continue sevelamer 2400 mg 3 times daily with meals. -We will monitor with repeat phosphorus in the morning. #Hypocalcemia -Continue calcitriol 0.5 micrograms daily #Hyponatremiaresolved -Sodium 132 -Continue to monitor #Normocytic anemia -Hemoglobin 7.0 -Possibly anemia of chronic disease. Transfuse 1 unit packed RBC. Will recheck with CBC. #Advanced care planning -Disease education conducted, care plan discussed, diagnoses discussed, prognosis discussed, and patient acknowledges understanding with care plan -Time: +30 mins #Discharge planning - Patient is pending final nephrology recommendations and establishment of outpatient hemodialysis chair. Application has already been sent out for [facility] chair. - Case management has been made aware. - Discharge is tentatively 24-72 hours. Disposition Plan: Pending HD chair Total Time Spent with Patient (Minutes): 45 minutes History Interval history: No acute events overnight. Hospitalist Physical - Constitutional Vitals: Temp Pulse Resp BP Pulse Ox 98.8 F 99 H 18 169/102 99 01/28/21 03:33 01/28/21 03:33 01/28/21 07:04 01/28/21 03:33 01/28/21 07:04 General appearance: Present: no acute distress, well-nourished, obese - EENT Eyes: Present: PERRL, EOM intact ENT: hearing intact, clear oral mucosa, dentition normal - Neck Neck: Present: supple, normal ROM - Respiratory Respiratory effort: normal Respiratory: bilateral: CTA Details: Permacath in right upper chest pain - Cardiovascular Rhythm: regular Heart Sounds: Present: S1 & S2 - Extremities Extremities: no ischemia, pulses intact, pulses symmetrical, No edema, normal temperature, normal color, Full ROM Peripheral Pulses: within normal limits - Abdominal General gastrointestinal: soft, non-tender, non-distended, normal bowel sounds - Integumentary Integumentary: Present: clear, warm, dry - Psychiatric Psychiatric: appropriate mood/affect, intact judgment & insight, memory intact, cooperative - Neurologic Neurologic: CNII-XII intact - Allied Health Allied health notes reviewed: nursing HEART Score - HEART Score EKG: Normal Age: < 45 Risk factors: 1-2 risk factors Troponin: < normal limit - Critical Actions Critical Actions: 0-3 pts:0.9-1.7%risk of adverse cardiac event.Candidate for discharge Results - Labs CBC & Chem 7: 01/27/21 04:56 01/28/21 05:26 Labs: Laboratory Last Values WBC 12.6 K/mm3 (4.5-11.0) H 01/27/21 04:56 RBC 2.27 M/mm3 (3.65-5.03) L 01/27/21 04:56 Hgb 7.0 gm/dl (11.8-15.2) L 01/27/21 04:56 Hct 21.4 % (35.5-45.6) L 01/27/21 04:56 MCV 94 fl (84-94) 01/27/21 04:56 MCH 31 pg (28-32) 01/27/21 04:56 MCHC 33 % (32-34) 01/27/21 04:56 RDW 18.7 % (13.2-15.2) H 01/27/21 04:56 Plt Count 307 K/mm3 (140-440) 01/27/21 04:56 Lymph % (Auto) 10.5 % (13.4-35.0) L 01/26/21 04:36 Major % (Auto) 7.6 % (0.0-7.3) H 01/26/21 04:36 Eos % (Auto) 2.2 % (0.0-4.3) 01/26/21 04:36 Baso % (Auto) 0.5 % (0.0-1.8) 01/26/21 04:36 Lymph # (Auto) 1.3 K/mm3 (1.2-5.4) 01/26/21 04:36 Major # (Auto) 0.9 K/mm3 (0.0-0.8) H 01/26/21 04:36 Eos # (Auto) 0.3 K/mm3 (0.0-0.4) 01/26/21 04:36 Baso # (Auto) 0.1 K/mm3 (0.0-0.1) 01/26/21 04:36 Add Manual Diff Complete 01/27/21 04:56 Total Counted 100 01/27/21 04:56 Seg Neutrophils % 79.2 % (40.0-70.0) H 01/26/21 04:36 Seg Neuts % (Manual) 91.0 % (40.0-70.0) H 01/27/21 04:56 Band Neutrophils % 2.0 % 01/27/21 04:56 Lymphocytes % (Manual) 4.0 % (13.4-35.0) L 01/27/21 04:56 Monocytes % (Manual) 3.0 % (0.0-7.3) 01/27/21 04:56 Eosinophils % (Manual) 3.0 % (0.0-4.3) 01/25/21 04:36 Nucleated RBC % Not Reportable 01/27/21 04:56 Seg Neutrophils # 9.5 K/mm3 (1.8-7.7) H 01/26/21 04:36 Seg Neutrophils # Man 11.5 K/mm3 (1.8-7.7) H 01/27/21 04:56 Band Neutrophils # 0.3 K/mm3 01/27/21 04:56 Lymphocytes # (Manual) 0.5 K/mm3 (1.2-5.4) L 01/27/21 04:56 Abs React Lymphs (Man) 0.0 K/mm3 01/27/21 04:56 Monocytes # (Manual) 0.4 K/mm3 (0.0-0.8) 01/27/21 04:56 Eosinophils # (Manual) 0.0 K/mm3 (0.0-0.4) 01/27/21 04:56 Basophils # (Manual) 0.0 K/mm3 (0.0-0.1) 01/27/21 04:56 Metamyelocytes # 0.0 K/mm3 01/27/21 04:56 Myelocytes # 0.0 K/mm3 01/27/21 04:56 Promyelocytes # 0.0 K/mm3 01/27/21 04:56 Blast Cells # 0.0 K/mm3 01/27/21 04:56 WBC Morphology Not Reportable 01/27/21 04:56 Hypersegmented Neuts Not Reportable 01/27/21 04:56 Hyposegmented Neuts Not Reportable 01/27/21 04:56 Hypogranular Neuts Not Reportable 01/27/21 04:56 Smudge Cells Not Reportable 01/27/21 04:56 Toxic Granulation Not Reportable 01/27/21 04:56 Toxic Vacuolation Not Reportable 01/27/21 04:56 Dohle Bodies Not Reportable 01/27/21 04:56 Pelger-Huet Anomaly Not Reportable 01/27/21 04:56 Jerry Rods Not Reportable 01/27/21 04:56 Platelet Estimate Not Reportable 01/27/21 04:56 Clumped Platelets Not Reportable 01/27/21 04:56 Plt Clumps, EDTA Not Reportable 01/27/21 04:56 Large Platelets Not Reportable 01/27/21 04:56 Giant Platelets Not Reportable 01/27/21 04:56 Platelet Satelliting Not Reportable 01/27/21 04:56 Plt Morphology Comment Not Reportable 01/27/21 04:56 RBC Morphology Not Reportable 01/27/21 04:56 Dimorphic RBCs Not Reportable 01/27/21 04:56 Polychromasia Not Reportable 01/27/21 04:56 Hypochromasia Not Reportable 01/27/21 04:56 Poikilocytosis Not Reportable 01/27/21 04:56 Anisocytosis 1+ 01/27/21 04:56 Microcytosis Not Reportable 01/27/21 04:56 Macrocytosis Not Reportable 01/27/21 04:56 Spherocytes Not Reportable 01/27/21 04:56 Pappenheimer Bodies Not Reportable 01/27/21 04:56 Sickle Cells Not Reportable 01/27/21 04:56 Target Cells Not Reportable 01/27/21 04:56 Tear Drop Cells Not Reportable 01/27/21 04:56 Ovalocytes Not Reportable 01/27/21 04:56 Helmet Cells Not Reportable 01/27/21 04:56 [place] Bodies Not Reportable 01/27/21 04:56 [place] Rings Not Reportable 01/27/21 04:56 Shayna Cells Not Reportable 01/27/21 04:56 Bite Cells Not Reportable 01/27/21 04:56 Crenated Cell Not Reportable 01/27/21 04:56 Elliptocytes Not Reportable 01/27/21 04:56 Acanthocytes (Spur) Not Reportable 01/27/21 04:56 Rouleaux Not Reportable 01/27/21 04:56 Hemoglobin C Crystals Not Reportable 01/27/21 04:56 Schistocytes Not Reportable 01/27/21 04:56 Malaria parasites Not Reportable 01/27/21 04:56 Humberto Bodies Not Reportable 01/27/21 04:56 Hem Pathologist Commnt No 01/27/21 04:56 Sodium 137 mmol/L (137-145) 01/28/21 05:26 Potassium 4.0 mmol/L (3.6-5.0) 01/28/21 05:26 Chloride 97.5 mmol/L (98-107) L 01/28/21 05:26 Carbon Dioxide 24 mmol/L (22-30) 01/28/21 05:26 Anion Gap 20 mmol/L 01/28/21 05:26 BUN 33 mg/dL (9-20) H 01/28/21 05:26 Creatinine 12.8 mg/dL (0.8-1.3) H 01/28/21 05:26 Estimated GFR 6 ml/min 01/28/21 05:26 BUN/Creatinine Ratio 3 % 01/28/21 05:26 Glucose 100 mg/dL (75-100) 01/28/21 05:26 Calcium 9.8 mg/dL (8.4-10.2) 01/28/21 05:26 Phosphorus 5.10 mg/dL (2.5-4.5) H 01/28/21 05:26 Magnesium 1.80 mg/dL (1.7-2.3) 01/28/21 05:26 Iron 41 ug/dL (49-181) L 01/25/21 04:36 TIBC 223 mcg/dL (250-450) L 01/25/21 04:36 Ferritin 152.0 ng/mL (30.0-300.0) 01/25/21 04:36 Total Bilirubin 0.40 mg/dL (0.1-1.2) 01/26/21 04:36 AST 5 units/L (5-40) 01/26/21 04:36 ALT 5 units/L (7-56) L 01/26/21 04:36 Alkaline Phosphatase 44 units/L (35-129) 01/26/21 04:36 Total Protein 5.1 g/dL (6.3-8.2) L D 01/26/21 04:36 Albumin 3.0 g/dL (3.9-5) L 01/26/21 04:36 Albumin/Globulin Ratio 1.4 % 01/26/21 04:36 Lipase 131 units/L (13-60) H 01/23/21 13:43 PTH Intact 391.8 pg/mL (15-65) H 01/25/21 04:36 Coronavirus (PCR) Negative (Negative) 01/27/21 10:01 Hepatitis A IgM Ab Non-reactive (NonReactive) 01/24/21 11:50 Hep Bs Antigen Nonreactive (Negative) 01/24/21 11:50 Hep B Core IgM Ab Non-reactive (NonReactive) 01/24/21 11:50 Hepatitis C Antibody Non-reactive (NonReactive) 01/24/21 11:50 Blood Type O NEGATIVE 01/25/21 13:55 Antibody Screen Negative 01/25/21 13:55 Crossmatch See Detail 01/25/21 13:55 Burton/IV: Voiding Method Urinal Active Medications - Current Medications Current Medications: Generic Name Dose Route Start Last Admin Trade Name Freq PRN Reason Stop Dose Admin Acetaminophen 650 mg 01/23/21 17:40 Acetaminophen 325 Mg Tab PO Q4H PRN Pain MILD(1-3)/Fever >100.5/ESCAMILLA Calcitriol 0.5 mcg 01/26/21 10:00 01/28/21 09:07 Calcitriol 0.5 Mcg Cap PO 0.5 mcg QDAY SYDNIE Administration Calcium Acetate 1,334 mg 01/24/21 14:00 01/28/21 08:14 Calcium Acetate 667 Mg Cap PO 1,334 mg TID SYDNIE Administration Carvedilol 25 mg 01/24/21 15:24 01/28/21 09:07 Carvedilol 12.5 Mg Tab PO 25 mg BID SYDNIE Administration Hydralazine HCl 50 mg 01/23/21 18:00 01/28/21 05:30 Hydralazine 25 Mg Tab PO 50 mg Q8HR SYDNIE Administration Hydralazine HCl 10 mg 01/23/21 18:00 01/28/21 03:48 Hydralazine 20 Mg/1 Ml Inj IV 10 mg Q3H PRN Administration Blood Pressure Hydromorphone HCl 0.5 mg 01/23/21 17:40 01/24/21 15:19 Hydromorphone 1 Mg/1 Ml Inj IV 0.5 mg Q3H PRN Administration Pain , Severe (7-10) Sodium Chloride 100 mls @ 999 mls/hr 01/26/21 11:00 Nacl 0.9% IV BRIAN PRN Hypotension Metoclopramide HCl 10 mg 01/23/21 17:40 Metoclopramide 10 Mg/2 Ml Inj IV Q6H PRN Nausea And Vomiting Nifedipine 60 mg 01/24/21 10:00 01/28/21 09:07 Nifedipine Xl 60 Mg Tab PO 60 mg Q12HR SYDNIE Administration Ondansetron HCl 4 mg 01/23/21 17:40 01/26/21 09:19 Ondansetron 4 Mg/2 Ml Inj IV 4 mg Q3H PRN Administration Nausea And Vomiting Oxycodone/Acetaminophen 1 tab 01/23/21 17:40 01/26/21 22:08 Oxycodone /Acetaminophen 5-325mg Tab PO 1 tab Q6H PRN Administration Pain, Moderate (4-6) Sevelamer Carbonate 2,400 mg 01/25/21 11:30 01/28/21 08:14 Sevelamer Carbonate 800 Mg Tab PO 2,400 mg AC SYDNIE Administration Sodium Chloride 10 ml 01/23/21 22:00 01/28/21 10:21 Sodium Chloride 0.9% 10 Ml Flush Syringe IV Not Given BID SYDNIE Sodium Chloride 10 ml 01/23/21 17:40 Sodium Chloride 0.9% 10 Ml Flush Syringe IV PRN PRN LINE FLUSH
[2021-01-29] MEDS: hydrALAZINE 20 MG/1 ML INJ IV PRN ×2 (02:44→13:30)
[2021-01-29] MEDS: oxyCODONE /ACETAMINOPHEN 5-325MG TAB PO PRN ×2 (04:13→16:46)
[2021-01-29] MEDS: hydrALAZINE 25 MG TAB PO SCH ×3 (06:38→21:06)
--- NOTE | 2021-01-29 06:58 | Progress Note ---
Assessment and Plan Assessment: Acute Renal Failure secondary to Ischemic ATN vs Prerenal vs CKD stage 5 from Hypertensive Nephrosclerosis Uncontrolled Hypertension Nausea/Vomiting/ Abdominal Pain Questionable Pancreatitis and Colitis Leukocytosis Hyponatremia Hyperphosphatemia Anemia Plan: Serum creatinine 12.8 yesterday and prior was 17.2 Hemodialysis today as ordered S/P perm-catheter placement on 01/25/21. Baseline serum creatinine unknown but likely has advanced CKD due to HTN Renal Ultrasound shows-Medical renal disease. No Hydronephrosis For further work-up, ordered ALAN, ANCA, Hep panel, C3, C4, Ch50, Anti-GBM, SPEP, serum free light chains-pending Urine lytes, protein and eosinophils-pending Hyperphosphatemia, Improving-On Calcium Acetate 1300 mg po TID Anemia-On Epogen 20,000 units TIW. Transfuse as needed Obtain daily weights Monitor I/O's daily Renally dose medications Avoid nephrotoxic agents Assess dialysis needs daily Case Management onboard for outpatient HD placement to [facility], in progress Plan of care reviewed by Dr. Vaughn Subjective Date of service: 01/29/21 Principal diagnosis: Severe Renal Failure Interval history: Patient seen lying in bed. Reviewed renal plan. Objective - Vital Signs Vital signs: Vital Signs - 12hr 01/28/21 01/28/21 01/28/21 20:30 21:34 21:35 Temperature 98.7 F Pulse Rate 98 H 98 H 98 H Respiratory 20 Rate Blood Pressure 189/122 189/122 189/122 O2 Sat by Pulse 99 Oximetry 01/28/21 01/29/21 01/29/21 22:00 00:21 06:38 Temperature 99.1 F Pulse Rate 106 H 90 96 H Respiratory 18 Rate Blood Pressure 171/103 171/109 O2 Sat by Pulse 99 97 Oximetry - General Appearance General appearance: well-developed, appears stated age EENT: ATNC, PERRL, hearing intact, vision intact Neck: no JVD, supple Respiratory: Present: Decreased Breath Sounds Cardiology: S1S2 Gastrointestinal: normoactive bowel sounds Integumentary: warm and dry Neurologic: alert and oriented x3 Musculoskeletal: other (No edema) - Lab 01/27/21 04:56 01/28/21 05:26 Most recent lab results Calcium 9.8 mg/dL (8.4-10.2) 01/28/21 05:26 Phosphorus 5.10 mg/dL (2.5-4.5) H 01/28/21 05:26 Magnesium 1.80 mg/dL (1.7-2.3) 01/28/21 05:26 Medications & Allergies - Medications Allergies/Adverse Reactions: Allergies No Known Allergies Allergy (Verified 01/23/21 10:18) Home Medications: Home Medications Medication Instructions Recorded Confirmed Last Taken Type No Known Home Medications [No 01/23/21 01/23/21 Unknown History Reported Home Medications] Active Medications: Generic Name Dose Route Start Last Admin Trade Name Freq PRN Reason Stop Dose Admin Acetaminophen 650 mg 01/23/21 17:40 Acetaminophen 325 Mg Tab PO Q4H PRN Pain MILD(1-3)/Fever >100.5/ESCAMILLA Calcitriol 0.5 mcg 01/26/21 10:00 01/28/21 09:07 Calcitriol 0.5 Mcg Cap PO 0.5 mcg QDAY SYDNIE Administration Calcium Acetate 1,334 mg 01/24/21 14:00 01/28/21 21:34 Calcium Acetate 667 Mg Cap PO 1,334 mg TID SYDNIE Administration Carvedilol 25 mg 01/29/21 10:00 Carvedilol 25 Mg Tab PO BID SYDNIE Hydralazine HCl 50 mg 01/23/21 18:00 01/29/21 06:38 Hydralazine 25 Mg Tab PO 50 mg Q8HR SYDNIE Administration Hydralazine HCl 10 mg 01/23/21 18:00 01/29/21 02:44 Hydralazine 20 Mg/1 Ml Inj IV 10 mg Q3H PRN Administration Blood Pressure Hydromorphone HCl 0.5 mg 01/23/21 17:40 01/24/21 15:19 Hydromorphone 1 Mg/1 Ml Inj IV 0.5 mg Q3H PRN Administration Pain , Severe (7-10) Sodium Chloride 100 mls @ 999 mls/hr 01/26/21 11:00 Nacl 0.9% IV BRIAN PRN Hypotension Metoclopramide HCl 10 mg 01/23/21 17:40 Metoclopramide 10 Mg/2 Ml Inj IV Q6H PRN Nausea And Vomiting Nifedipine 60 mg 01/24/21 10:00 01/28/21 21:34 Nifedipine Xl 60 Mg Tab PO 60 mg Q12HR SYDNIE Administration Ondansetron HCl 4 mg 01/23/21 17:40 01/26/21 09:19 Ondansetron 4 Mg/2 Ml Inj IV 4 mg Q3H PRN Administration Nausea And Vomiting Oxycodone/Acetaminophen 1 tab 01/23/21 17:40 01/29/21 04:13 Oxycodone /Acetaminophen 5-325mg Tab PO 1 tab Q6H PRN Administration Pain, Moderate (4-6) Sevelamer Carbonate 2,400 mg 01/25/21 11:30 01/28/21 16:52 Sevelamer Carbonate 800 Mg Tab PO Not Given AC SYDNIE Sodium Chloride 10 ml 01/23/21 22:00 01/28/21 22:45 Sodium Chloride 0.9% 10 Ml Flush Syringe IV 10 ml BID YSDNIE Administration Sodium Chloride 10 ml 01/23/21 17:40 Sodium Chloride 0.9% 10 Ml Flush Syringe IV PRN PRN LINE FLUSH
[2021-01-29 09:17] LABS: Calcium 8.7 mg/dL (8.4-10.2)
[2021-01-29] MEDS: CALCIUM ACETATE 667 MG CAP PO SCH ×3 (10:02→21:07)
[2021-01-29] MEDS: SEVELAMER CARBONATE 800 MG TAB PO SCH ×3 (10:02→17:49)
[2021-01-29] MEDS: CALCITRIOL 0.5 MCG CAP PO SCH (10:02)
[2021-01-29] MEDS: carvediloL 25 MG TAB PO SCH ×2 (14:30→21:08)
[2021-01-29] MEDS: NIFEdipine XL 60 MG TAB PO SCH ×2 (16:50→21:07)
[2021-01-29] MEDS ORDERED: hydrALAZINE 20 MG/1 ML INJ IV ONE (17:37)
--- NOTE | 2021-01-29 17:40 | Progress Note ---
Assessment and Plan Assessment and plan: #Hypertensive emergency -Continue p.o. antihypertensives: Coreg 25 mg twice daily, nifedipine 90 mg twice daily, and p.o. hydralazine 100 mg every 8hrs -Blood pressure should improve with initiation of hemodialysis -Continue telemetry. -SBP goal <160. Continue to monitor. #MOHINDER versus ATN versus ESRD -Creatinine 16.4 -Nephrology consulted; appreciate recs -Renal ultrasound negative for hydronephrosis or renal cysts. Consistent with medical renal disease. -Vascular surgery consulted for permacath placement; hemodialysis access obtained 01/25/2021 (Vas-Cath) -Renally dose medications and avoid nephrotoxic drugs. #Hyperphosphatemia-improving -Phosphorus 6.2 -Continue sevelamer 2400 mg 3 times daily with meals. -We will monitor with repeat phosphorus in the morning. #Hypocalcemia -Continue calcitriol 0.5 micrograms daily #Hyponatremiaresolved -Sodium 132 -Continue to monitor #Normocytic anemia -Hemoglobin 7.0 -Possibly anemia of chronic disease. Transfuse 1 unit packed RBC. Will recheck with CBC. #Obesity #Weight loss counseling #Exercise counseling - BMI 32 - Counseled patient on the importance of weight loss, incorporating exercise, and dietary changes (lean meats, fresh fruits and vegetables, and water intake). Patient expresses understanding. - Time: +10 min #Advanced care planning -Disease education conducted, care plan discussed, diagnoses discussed, prognosis discussed, and patient acknowledges understanding with care plan -Time: +30 mins #Discharge planning - Patient is pending final nephrology recommendations and establishment of outpatient hemodialysis chair. Application has already been sent out for [facility] chair. - Case management has been made aware. - Discharge is tentatively 24-72 hours. Disposition Plan: Pending HD chair Total Time Spent with Patient (Minutes): 45 minutes History Interval history: No acute events overnight. Hospitalist Physical - Constitutional Vitals: Temp Pulse Resp BP Pulse Ox 98.3 F 90 20 173/116 99 01/29/21 16:00 01/29/21 16:00 01/29/21 16:00 01/29/21 16:00 01/29/21 16:00 General appearance: Present: no acute distress, well-nourished, obese - EENT Eyes: Present: PERRL, EOM intact ENT: hearing intact, clear oral mucosa, dentition normal - Neck Neck: Present: supple, normal ROM - Respiratory Respiratory effort: normal Respiratory: bilateral: CTA - Cardiovascular Rhythm: regular Heart Sounds: Present: S1 & S2 - Extremities Extremities: no ischemia, pulses intact, pulses symmetrical, No edema, normal temperature, normal color, Full ROM Peripheral Pulses: within normal limits - Abdominal General gastrointestinal: soft, non-tender, non-distended, normal bowel sounds - Integumentary Integumentary: Present: clear, warm, dry - Psychiatric Psychiatric: appropriate mood/affect, intact judgment & insight, memory intact, cooperative - Neurologic Neurologic: CNII-XII intact, moves all extremities - Allied Health Allied health notes reviewed: nursing HEART Score - HEART Score EKG: Normal Age: < 45 Risk factors: 1-2 risk factors Troponin: < normal limit - Critical Actions Critical Actions: 0-3 pts:0.9-1.7%risk of adverse cardiac event.Candidate for discharge Results - Labs CBC & Chem 7: 01/27/21 04:56 01/29/21 05:23 Labs: Laboratory Last Values WBC 12.6 K/mm3 (4.5-11.0) H 01/27/21 04:56 RBC 2.27 M/mm3 (3.65-5.03) L 01/27/21 04:56 Hgb 7.0 gm/dl (11.8-15.2) L 01/27/21 04:56 Hct 21.4 % (35.5-45.6) L 01/27/21 04:56 MCV 94 fl (84-94) 01/27/21 04:56 MCH 31 pg (28-32) 01/27/21 04:56 MCHC 33 % (32-34) 01/27/21 04:56 RDW 18.7 % (13.2-15.2) H 01/27/21 04:56 Plt Count 307 K/mm3 (140-440) 01/27/21 04:56 Lymph % (Auto) 10.5 % (13.4-35.0) L 01/26/21 04:36 [place] % (Auto) 7.6 % (0.0-7.3) H 01/26/21 04:36 Eos % (Auto) 2.2 % (0.0-4.3) 01/26/21 04:36 Baso % (Auto) 0.5 % (0.0-1.8) 01/26/21 04:36 Lymph # (Auto) 1.3 K/mm3 (1.2-5.4) 01/26/21 04:36 [place] # (Auto) 0.9 K/mm3 (0.0-0.8) H 01/26/21 04:36 Eos # (Auto) 0.3 K/mm3 (0.0-0.4) 01/26/21 04:36 Baso # (Auto) 0.1 K/mm3 (0.0-0.1) 01/26/21 04:36 Add Manual Diff Complete 01/27/21 04:56 Total Counted 100 01/27/21 04:56 Seg Neutrophils % 79.2 % (40.0-70.0) H 01/26/21 04:36 Seg Neuts % (Manual) 91.0 % (40.0-70.0) H 01/27/21 04:56 Band Neutrophils % 2.0 % 01/27/21 04:56 Lymphocytes % (Manual) 4.0 % (13.4-35.0) L 01/27/21 04:56 Monocytes % (Manual) 3.0 % (0.0-7.3) 01/27/21 04:56 Eosinophils % (Manual) 3.0 % (0.0-4.3) 01/25/21 04:36 Nucleated RBC % Not Reportable 01/27/21 04:56 Seg Neutrophils # 9.5 K/mm3 (1.8-7.7) H 01/26/21 04:36 Seg Neutrophils # Man 11.5 K/mm3 (1.8-7.7) H 01/27/21 04:56 Band Neutrophils # 0.3 K/mm3 01/27/21 04:56 Lymphocytes # (Manual) 0.5 K/mm3 (1.2-5.4) L 01/27/21 04:56 Abs React Lymphs (Man) 0.0 K/mm3 01/27/21 04:56 Monocytes # (Manual) 0.4 K/mm3 (0.0-0.8) 01/27/21 04:56 Eosinophils # (Manual) 0.0 K/mm3 (0.0-0.4) 01/27/21 04:56 Basophils # (Manual) 0.0 K/mm3 (0.0-0.1) 01/27/21 04:56 Metamyelocytes # 0.0 K/mm3 01/27/21 04:56 Myelocytes # 0.0 K/mm3 01/27/21 04:56 Promyelocytes # 0.0 K/mm3 01/27/21 04:56 Blast Cells # 0.0 K/mm3 01/27/21 04:56 WBC Morphology Not Reportable 01/27/21 04:56 Hypersegmented Neuts Not Reportable 01/27/21 04:56 Hyposegmented Neuts Not Reportable 01/27/21 04:56 Hypogranular Neuts Not Reportable 01/27/21 04:56 Smudge Cells Not Reportable 01/27/21 04:56 Toxic Granulation Not Reportable 01/27/21 04:56 Toxic Vacuolation Not Reportable 01/27/21 04:56 Dohle Bodies Not Reportable 01/27/21 04:56 Pelger-Huet Anomaly Not Reportable 01/27/21 04:56 Jerry Rods Not Reportable 01/27/21 04:56 Platelet Estimate Not Reportable 01/27/21 04:56 Clumped Platelets Not Reportable 01/27/21 04:56 Plt Clumps, EDTA Not Reportable 01/27/21 04:56 Large Platelets Not Reportable 01/27/21 04:56 Giant Platelets Not Reportable 01/27/21 04:56 Platelet Satelliting Not Reportable 01/27/21 04:56 Plt Morphology Comment Not Reportable 01/27/21 04:56 RBC Morphology Not Reportable 01/27/21 04:56 Dimorphic RBCs Not Reportable 01/27/21 04:56 Polychromasia Not Reportable 01/27/21 04:56 Hypochromasia Not Reportable 01/27/21 04:56 Poikilocytosis Not Reportable 01/27/21 04:56 Anisocytosis 1+ 01/27/21 04:56 Microcytosis Not Reportable 01/27/21 04:56 Macrocytosis Not Reportable 01/27/21 04:56 Spherocytes Not Reportable 01/27/21 04:56 Pappenheimer Bodies Not Reportable 01/27/21 04:56 Sickle Cells Not Reportable 01/27/21 04:56 Target Cells Not Reportable 01/27/21 04:56 Tear Drop Cells Not Reportable 01/27/21 04:56 Ovalocytes Not Reportable 01/27/21 04:56 Helmet Cells Not Reportable 01/27/21 04:56 Christopher-Emhouse Bodies Not Reportable 01/27/21 04:56 [place] Rings Not Reportable 01/27/21 04:56 Squires Cells Not Reportable 01/27/21 04:56 Bite Cells Not Reportable 01/27/21 04:56 Crenated Cell Not Reportable 01/27/21 04:56 Elliptocytes Not Reportable 01/27/21 04:56 Acanthocytes (Spur) Not Reportable 01/27/21 04:56 Rouleaux Not Reportable 01/27/21 04:56 Hemoglobin C Crystals Not Reportable 01/27/21 04:56 Schistocytes Not Reportable 01/27/21 04:56 Malaria parasites Not Reportable 01/27/21 04:56 Humberto Bodies Not Reportable 01/27/21 04:56 Hem Pathologist Commnt No 01/27/21 04:56 Sodium 134 mmol/L (137-145) L 01/29/21 05:23 Potassium 3.8 mmol/L (3.6-5.0) 01/29/21 05:23 Chloride 95.5 mmol/L (98-107) L 01/29/21 05:23 Carbon Dioxide 22 mmol/L (22-30) 01/29/21 05:23 Anion Gap 20 mmol/L 01/29/21 05:23 BUN 40 mg/dL (9-20) H 01/29/21 05:23 Creatinine 16.4 mg/dL (0.8-1.3) H 01/29/21 05:23 Estimated GFR 4 ml/min 01/29/21 05:23 BUN/Creatinine Ratio 2 % 01/29/21 05:23 Glucose 94 mg/dL (75-100) 01/29/21 05:23 Calcium 8.7 mg/dL (8.4-10.2) 01/29/21 05:23 Phosphorus 5.10 mg/dL (2.5-4.5) H 01/28/21 05:26 Magnesium 1.80 mg/dL (1.7-2.3) 01/28/21 05:26 Iron 41 ug/dL (49-181) L 01/25/21 04:36 TIBC 223 mcg/dL (250-450) L 01/25/21 04:36 Ferritin 152.0 ng/mL (30.0-300.0) 01/25/21 04:36 Total Bilirubin 0.40 mg/dL (0.1-1.2) 01/26/21 04:36 AST 5 units/L (5-40) 01/26/21 04:36 ALT 5 units/L (7-56) L 01/26/21 04:36 Alkaline Phosphatase 44 units/L (35-129) 01/26/21 04:36 Total Protein 5.1 g/dL (6.3-8.2) L D 01/26/21 04:36 Albumin 3.0 g/dL (3.9-5) L 01/26/21 04:36 Albumin/Globulin Ratio 1.4 % 01/26/21 04:36 Lipase 131 units/L (13-60) H 01/23/21 13:43 PTH Intact 391.8 pg/mL (15-65) H 01/25/21 04:36 Complement C3 102 mg/dL (82-185) 01/25/21 04:36 Complement C4 25 mg/dL (15-53) 01/25/21 04:36 Coronavirus (PCR) Negative (Negative) 01/27/21 10:01 Hepatitis A IgM Ab Non-reactive (NonReactive) 01/24/21 11:50 Hep Bs Antigen Nonreactive (Negative) 01/24/21 11:50 Hep B Core IgM Ab Non-reactive (NonReactive) 01/24/21 11:50 Hepatitis C Antibody Non-reactive (NonReactive) 01/24/21 11:50 Blood Type O NEGATIVE 01/25/21 13:55 Antibody Screen Negative 01/25/21 13:55 Crossmatch See Detail 01/25/21 13:55 Burton/IV: Voiding Method Toilet Active Medications - Current Medications Current Medications: Generic Name Dose Route Start Last Admin Trade Name Freq PRN Reason Stop Dose Admin Acetaminophen 650 mg 01/23/21 17:40 Acetaminophen 325 Mg Tab PO Q4H PRN Pain MILD(1-3)/Fever >100.5/ESCAMILLA Calcitriol 0.5 mcg 01/26/21 10:00 01/29/21 10:02 Calcitriol 0.5 Mcg Cap PO 0.5 mcg QDAY SYDNIE Administration Calcium Acetate 1,334 mg 01/24/21 14:00 01/29/21 14:31 Calcium Acetate 667 Mg Cap PO 1,334 mg TID SYDNIE Administration Carvedilol 25 mg 01/29/21 10:00 01/29/21 14:30 Carvedilol 25 Mg Tab PO 25 mg BID SYDNIE Administration Hydralazine HCl 10 mg 01/23/21 18:00 01/29/21 13:30 Hydralazine 20 Mg/1 Ml Inj IV 10 mg Q3H PRN Administration Blood Pressure Hydralazine HCl 100 mg 01/29/21 17:37 Hydralazine 25 Mg Tab PO Q8HR [facility] Hydralazine HCl 20 mg 01/29/21 17:37 Hydralazine 20 Mg/1 Ml Inj IV 01/29/21 17:38 ONCE ONE Hydromorphone HCl 0.5 mg 01/23/21 17:40 01/24/21 15:19 Hydromorphone 1 Mg/1 Ml Inj IV 0.5 mg Q3H PRN Administration Pain , Severe (7-10) Sodium Chloride 100 mls @ 999 mls/hr 01/26/21 11:00 Nacl 0.9% IV BRIAN PRN Hypotension Metoclopramide HCl 10 mg 01/23/21 17:40 Metoclopramide 10 Mg/2 Ml Inj IV Q6H PRN Nausea And Vomiting Nifedipine 90 mg 01/29/21 17:37 Nifedipine Xl 60 Mg Tab PO Q12HR [facility] Ondansetron HCl 4 mg 01/23/21 17:40 01/26/21 09:19 Ondansetron 4 Mg/2 Ml Inj IV 4 mg Q3H PRN Administration Nausea And Vomiting Oxycodone/Acetaminophen 1 tab 01/23/21 17:40 01/29/21 16:46 Oxycodone /Acetaminophen 5-325mg Tab PO 1 tab Q6H PRN Administration Pain, Moderate (4-6) Sevelamer Carbonate 2,400 mg 01/25/21 11:30 01/29/21 14:30 Sevelamer Carbonate 800 Mg Tab PO 2,400 mg AC SYDNIE Administration Sodium Chloride 10 ml 01/23/21 22:00 01/29/21 16:51 Sodium Chloride 0.9% 10 Ml Flush Syringe IV Not Given BID SYDNIE Sodium Chloride 10 ml 01/23/21 17:40 Sodium Chloride 0.9% 10 Ml Flush Syringe IV PRN PRN LINE FLUSH
[2021-01-29 21:00] LABS: Gamma Globulin 0.7 g/dL (0.8-1.7)
[2021-01-29 22:01] LABS: Myeloperoxidase Antibody <1.0 AI (<1.0)
[2021-01-30] MEDS: hydrALAZINE 20 MG/1 ML INJ IV PRN (00:44)
[2021-01-30] MEDS: oxyCODONE /ACETAMINOPHEN 5-325MG TAB PO PRN ×2 (00:44→21:38)
[2021-01-30] MEDS: hydrALAZINE 25 MG TAB PO SCH ×3 (05:42→21:37)
[2021-01-30 06:36] LABS: Calcium 9.7 mg/dL (8.4-10.2)
--- NOTE | 2021-01-30 08:51 | Progress Note ---
Assessment and Plan Assessment: Acute Renal Failure secondary to Ischemic ATN vs Prerenal vs CKD stage 5 from Hypertensive Nephrosclerosis Uncontrolled Hypertension Nausea/Vomiting/ Abdominal Pain Questionable Pancreatitis and Colitis Leukocytosis Hyponatremia Hyperphosphatemia Anemia Plan: Renal labs reviewed. Serum creatinine 11.2 today and prior was 16.4 S/P Hemodialysis yesterday S/P perm-catheter placement on 01/25/21. Baseline serum creatinine unknown but likely has advanced CKD due to HTN Renal Ultrasound shows-Medical renal disease. No Hydronephrosis For further work-up, ordered ALAN, ANCA, Hep panel, C3, C4, Ch50, Anti-GBM, SPEP, serum free light chains-pending Urine lytes, protein and eosinophils-pending Hyperphosphatemia, Improving-On Calcium Acetate 1300 mg po TID Anemia-On Epogen 20,000 units TIW. Transfuse as needed Obtain daily weights Monitor I/O's daily Renally dose medications Avoid nephrotoxic agents Assess dialysis needs daily Case Management onboard for outpatient HD placement to [facility] Plan of care reviewed by Dr. Vaughn Subjective Date of service: 01/30/21 Principal diagnosis: Severe Renal Failure Interval history: Patient seen lying in bed. Reviewed renal plan. Objective - Vital Signs Vital signs: Vital Signs - 12hr 01/29/21 01/30/21 01/30/21 23:52 00:00 02:23 Temperature 97.2 F L Pulse Rate 89 101 H Respiratory 16 Rate Blood Pressure 171/107 O2 Sat by Pulse 98 99 Oximetry 01/30/21 03:05 Temperature 98.6 F Pulse Rate 97 H Respiratory 16 Rate Blood Pressure 155/93 O2 Sat by Pulse 99 Oximetry - General Appearance General appearance: well-developed, appears stated age EENT: ATNC, PERRL, hearing intact, vision intact Neck: no JVD, supple Respiratory: Present: Decreased Breath Sounds Cardiology: S1S2 Gastrointestinal: normoactive bowel sounds Integumentary: warm and dry Neurologic: alert and oriented x3 Musculoskeletal: other (No edema) - Lab 01/27/21 04:56 01/30/21 05:44 Most recent lab results Calcium 9.7 mg/dL (8.4-10.2) 01/30/21 05:44 Phosphorus 5.10 mg/dL (2.5-4.5) H 01/28/21 05:26 Magnesium 1.80 mg/dL (1.7-2.3) 01/28/21 05:26 Medications & Allergies - Medications Allergies/Adverse Reactions: Allergies No Known Allergies Allergy (Verified 01/23/21 10:18) Home Medications: Home Medications Medication Instructions Recorded Confirmed Last Taken Type No Known Home Medications [No 01/23/21 01/23/21 Unknown History Reported Home Medications] Active Medications: Generic Name Dose Route Start Last Admin Trade Name Freq PRN Reason Stop Dose Admin Acetaminophen 650 mg 01/23/21 17:40 Acetaminophen 325 Mg Tab PO Q4H PRN Pain MILD(1-3)/Fever >100.5/ESCAMILLA Calcitriol 0.5 mcg 01/26/21 10:00 01/29/21 10:02 Calcitriol 0.5 Mcg Cap PO 0.5 mcg QDAY SYDNIE Administration Calcium Acetate 1,334 mg 01/24/21 14:00 01/29/21 21:07 Calcium Acetate 667 Mg Cap PO 1,334 mg TID SYDNIE Administration Carvedilol 25 mg 01/29/21 10:00 01/29/21 21:08 Carvedilol 25 Mg Tab PO 25 mg BID SYDNIE Administration Hydralazine HCl 10 mg 01/23/21 18:00 01/30/21 00:44 Hydralazine 20 Mg/1 Ml Inj IV 10 mg Q3H PRN Administration Blood Pressure Hydralazine HCl 100 mg 01/29/21 17:37 01/30/21 05:42 Hydralazine 25 Mg Tab PO 100 mg Q8HR SYDNIE Administration Hydromorphone HCl 0.5 mg 01/23/21 17:40 01/24/21 15:19 Hydromorphone 1 Mg/1 Ml Inj IV 0.5 mg Q3H PRN Administration Pain , Severe (7-10) Sodium Chloride 100 mls @ 999 mls/hr 01/26/21 11:00 Nacl 0.9% IV RBIAN PRN Hypotension Metoclopramide HCl 10 mg 01/23/21 17:40 Metoclopramide 10 Mg/2 Ml Inj IV Q6H PRN Nausea And Vomiting Nifedipine 90 mg 01/29/21 17:37 01/29/21 21:07 Nifedipine Xl 60 Mg Tab PO 90 mg Q12HR SYDNIE Administration Ondansetron HCl 4 mg 01/23/21 17:40 01/26/21 09:19 Ondansetron 4 Mg/2 Ml Inj IV 4 mg Q3H PRN Administration Nausea And Vomiting Oxycodone/Acetaminophen 1 tab 01/23/21 17:40 01/30/21 00:44 Oxycodone /Acetaminophen 5-325mg Tab PO 1 tab Q6H PRN Administration Pain, Moderate (4-6) Sevelamer Carbonate 2,400 mg 01/25/21 11:30 01/29/21 17:49 Sevelamer Carbonate 800 Mg Tab PO 2,400 mg AC SYDNIE Administration Sodium Chloride 10 ml 01/23/21 22:00 01/29/21 21:10 Sodium Chloride 0.9% 10 Ml Flush Syringe IV 10 ml BID SYDNIE Administration Sodium Chloride 10 ml 01/23/21 17:40 01/29/21 18:29 Sodium Chloride 0.9% 10 Ml Flush Syringe IV 10 ml PRN PRN Administration LINE FLUSH
[2021-01-30] MEDS: SEVELAMER CARBONATE 800 MG TAB PO SCH ×3 (09:15→18:10)
[2021-01-30] MEDS: CALCIUM ACETATE 667 MG CAP PO SCH ×3 (09:16→21:38)
[2021-01-30] MEDS: NIFEdipine XL 60 MG TAB PO SCH ×2 (09:16→21:38)
[2021-01-30] MEDS: CALCITRIOL 0.5 MCG CAP PO SCH (09:16)
[2021-01-30] MEDS: carvediloL 25 MG TAB PO SCH ×2 (09:16→21:38)
--- NOTE | 2021-01-30 15:49 | Progress Note ---
Assessment and Plan Assessment and plan: #Hypertensive emergency -Improved -Continue Coreg, nifedipine and hydralazine -Goal SBP less than 160 #Acute kidney injury -Creatinine 11.2 -Permacath placed 01/25 -Likely secondary to ATN versus ESRD -Renally dose medications and avoid nephrotoxins -Nephrology following, assistance appreciated -Awaiting outpatient HD set up #Hyperphosphatemia -improving -Continue sevelamer #Hypocalcemia -Continue Calcitrol #Hyponatremia -resolved #Normocytic anemia -Hgb 7, will transfuse for Hgb less than 7 -Epogen started with HD -Likely secondary to ESRD #Discharge planning -Pending establishment of outpatient HD -Patient uninsured, application sent for [facility], [place] Disposition Plan: pending HD chair History Interval history: No acute events overnight. Patient has no pain or complaints at this time. Hospitalist Physical - Physical exam Narrative exam: GENERAL: Well-developed well-nourished. Lying in bed, no acute distress. HEENT: Normocephalic. Atraumatic. CHEST/LUNGS: Permacath @ R chest. CTAB on room air HEART/CARDIOVASCULAR: RRR. No murmur, rubs or gallops appreciated. ABDOMEN: +BS. NT/ND. SKIN: No rashes noted. NEURO: No focal motor deficit. Follows all commands and is ambulatory. EXTREMITIES: No cyanosis, clubbing or edema. PSYCH: Cooperative. - Constitutional Vitals: Temp Pulse Resp BP Pulse Ox 98.6 F 97 H 18 140/85 99 01/30/21 03:05 01/30/21 12:59 01/30/21 10:00 01/30/21 12:59 01/30/21 10:00 General appearance: Present: no acute distress, well-nourished, obese HEART Score - HEART Score EKG: Normal Age: < 45 Risk factors: 1-2 risk factors Troponin: < normal limit - Critical Actions Critical Actions: 0-3 pts:0.9-1.7%risk of adverse cardiac event.Candidate for discharge Results - Labs CBC & Chem 7: 01/27/21 04:56 01/30/21 05:44 Labs: Laboratory Last Values WBC 12.6 K/mm3 (4.5-11.0) H 01/27/21 04:56 RBC 2.27 M/mm3 (3.65-5.03) L 01/27/21 04:56 Hgb 7.0 gm/dl (11.8-15.2) L 01/27/21 04:56 Hct 21.4 % (35.5-45.6) L 01/27/21 04:56 MCV 94 fl (84-94) 01/27/21 04:56 MCH 31 pg (28-32) 01/27/21 04:56 MCHC 33 % (32-34) 01/27/21 04:56 RDW 18.7 % (13.2-15.2) H 01/27/21 04:56 Plt Count 307 K/mm3 (140-440) 01/27/21 04:56 Lymph % (Auto) 10.5 % (13.4-35.0) L 01/26/21 04:36 [place] % (Auto) 7.6 % (0.0-7.3) H 01/26/21 04:36 Eos % (Auto) 2.2 % (0.0-4.3) 01/26/21 04:36 Baso % (Auto) 0.5 % (0.0-1.8) 01/26/21 04:36 Lymph # (Auto) 1.3 K/mm3 (1.2-5.4) 01/26/21 04:36 [place]very # (Auto) 0.9 K/mm3 (0.0-0.8) H 01/26/21 04:36 Eos # (Auto) 0.3 K/mm3 (0.0-0.4) 01/26/21 04:36 Baso # (Auto) 0.1 K/mm3 (0.0-0.1) 01/26/21 04:36 Add Manual Diff Complete 01/27/21 04:56 Total Counted 100 01/27/21 04:56 Seg Neutrophils % 79.2 % (40.0-70.0) H 01/26/21 04:36 Seg Neuts % (Manual) 91.0 % (40.0-70.0) H 01/27/21 04:56 Band Neutrophils % 2.0 % 01/27/21 04:56 Lymphocytes % (Manual) 4.0 % (13.4-35.0) L 01/27/21 04:56 Monocytes % (Manual) 3.0 % (0.0-7.3) 01/27/21 04:56 Eosinophils % (Manual) 3.0 % (0.0-4.3) 01/25/21 04:36 Nucleated RBC % Not Reportable 01/27/21 04:56 Seg Neutrophils # 9.5 K/mm3 (1.8-7.7) H 01/26/21 04:36 Seg Neutrophils # Man 11.5 K/mm3 (1.8-7.7) H 01/27/21 04:56 Band Neutrophils # 0.3 K/mm3 01/27/21 04:56 Lymphocytes # (Manual) 0.5 K/mm3 (1.2-5.4) L 01/27/21 04:56 Abs React Lymphs (Man) 0.0 K/mm3 01/27/21 04:56 Monocytes # (Manual) 0.4 K/mm3 (0.0-0.8) 01/27/21 04:56 Eosinophils # (Manual) 0.0 K/mm3 (0.0-0.4) 01/27/21 04:56 Basophils # (Manual) 0.0 K/mm3 (0.0-0.1) 01/27/21 04:56 Metamyelocytes # 0.0 K/mm3 01/27/21 04:56 Myelocytes # 0.0 K/mm3 01/27/21 04:56 Promyelocytes # 0.0 K/mm3 01/27/21 04:56 Blast Cells # 0.0 K/mm3 01/27/21 04:56 WBC Morphology Not Reportable 01/27/21 04:56 Hypersegmented Neuts Not Reportable 01/27/21 04:56 Hyposegmented Neuts Not Reportable 01/27/21 04:56 Hypogranular Neuts Not Reportable 01/27/21 04:56 Smudge Cells Not Reportable 01/27/21 04:56 Toxic Granulation Not Reportable 01/27/21 04:56 Toxic Vacuolation Not Reportable 01/27/21 04:56 Dohle Bodies Not Reportable 01/27/21 04:56 Pelger-Huet Anomaly Not Reportable 01/27/21 04:56 Jerry Rods Not Reportable 01/27/21 04:56 Platelet Estimate Not Reportable 01/27/21 04:56 Clumped Platelets Not Reportable 01/27/21 04:56 Plt Clumps, EDTA Not Reportable 01/27/21 04:56 Large Platelets Not Reportable 01/27/21 04:56 Giant Platelets Not Reportable 01/27/21 04:56 Platelet Satelliting Not Reportable 01/27/21 04:56 Plt Morphology Comment Not Reportable 01/27/21 04:56 RBC Morphology Not Reportable 01/27/21 04:56 Dimorphic RBCs Not Reportable 01/27/21 04:56 Polychromasia Not Reportable 01/27/21 04:56 Hypochromasia Not Reportable 01/27/21 04:56 Poikilocytosis Not Reportable 01/27/21 04:56 Anisocytosis 1+ 01/27/21 04:56 Microcytosis Not Reportable 01/27/21 04:56 Macrocytosis Not Reportable 01/27/21 04:56 Spherocytes Not Reportable 01/27/21 04:56 Pappenheimer Bodies Not Reportable 01/27/21 04:56 Sickle Cells Not Reportable 01/27/21 04:56 Target Cells Not Reportable 01/27/21 04:56 Tear Drop Cells Not Reportable 01/27/21 04:56 Ovalocytes Not Reportable 01/27/21 04:56 Helmet Cells Not Reportable 01/27/21 04:56 Christopher-Lubeck Bodies Not Reportable 01/27/21 04:56 [place] Rings Not Reportable 01/27/21 04:56 [place] Cells Not Reportable 01/27/21 04:56 Bite Cells Not Reportable 01/27/21 04:56 Crenated Cell Not Reportable 01/27/21 04:56 Elliptocytes Not Reportable 01/27/21 04:56 Acanthocytes (Spur) Not Reportable 01/27/21 04:56 Rouleaux Not Reportable 01/27/21 04:56 Hemoglobin C Crystals Not Reportable 01/27/21 04:56 Schistocytes Not Reportable 01/27/21 04:56 Malaria parasites Not Reportable 01/27/21 04:56 Humberto Bodies Not Reportable 01/27/21 04:56 Hem Pathologist Commnt No 01/27/21 04:56 Sodium 137 mmol/L (137-145) 01/30/21 05:44 Potassium 4.3 mmol/L (3.6-5.0) 01/30/21 05:44 Chloride 98.3 mmol/L (98-107) 01/30/21 05:44 Carbon Dioxide 23 mmol/L (22-30) 01/30/21 05:44 Anion Gap 20 mmol/L 01/30/21 05:44 BUN 26 mg/dL (9-20) H 01/30/21 05:44 Creatinine 11.2 mg/dL (0.8-1.3) H 01/30/21 05:44 Estimated GFR 7 ml/min 01/30/21 05:44 BUN/Creatinine Ratio 2 % 01/30/21 05:44 Glucose 101 mg/dL (75-100) H 01/30/21 05:44 Calcium 9.7 mg/dL (8.4-10.2) 01/30/21 05:44 Phosphorus 5.10 mg/dL (2.5-4.5) H 01/28/21 05:26 Magnesium 1.80 mg/dL (1.7-2.3) 01/28/21 05:26 Iron 41 ug/dL (49-181) L 01/25/21 04:36 TIBC 223 mcg/dL (250-450) L 01/25/21 04:36 Ferritin 152.0 ng/mL (30.0-300.0) 01/25/21 04:36 Total Bilirubin 0.40 mg/dL (0.1-1.2) 01/26/21 04:36 AST 5 units/L (5-40) 01/26/21 04:36 ALT 5 units/L (7-56) L 01/26/21 04:36 Alkaline Phosphatase 44 units/L (35-129) 01/26/21 04:36 Serum Total Protein 5.3 g/dL (6.1-8.1) L 01/25/21 04:36 Total Protein 5.1 g/dL (6.3-8.2) L D 01/26/21 04:36 Albumin 3.0 g/dL (3.9-5) L 01/26/21 04:36 Albumin/Globulin Ratio 1.4 % 01/26/21 04:36 Yqylm-7-Rphbxmdxk 0.6 g/dL (0.2-0.3) H 01/25/21 04:36 Myflz-9-Gpyyplqtd 0.5 g/dL (0.5-0.9) 01/25/21 04:36 Beta Globulins 0.2 g/dL (0.2-0.5) 01/25/21 04:36 Gamma Globulins 0.7 g/dL (0.8-1.7) L 01/25/21 04:36 Abnorm Protein Band 1 see below 01/25/21 04:36 PEP Interpretation see below H 01/25/21 04:36 Lipase 131 units/L (13-60) H 01/23/21 13:43 PTH Intact 391.8 pg/mL (15-65) H 01/25/21 04:36 Proteinase 3 (PR3) Ab <1.0 AI (<1.0) 01/25/21 04:36 Myeloperoxidase Ab <1.0 AI (<1.0) 01/25/21 04:36 Complement C3 102 mg/dL (82-185) 01/25/21 04:36 Complement C4 25 mg/dL (15-53) 01/25/21 04:36 Tot Complement (CH50) >60 U/mL (31-60) H 01/25/21 04:36 Coronavirus (PCR) Negative (Negative) 01/27/21 10:01 Hepatitis A IgM Ab Non-reactive (NonReactive) 01/24/21 11:50 Hep Bs Antigen Nonreactive (Negative) 01/24/21 11:50 Hep B Core IgM Ab Non-reactive (NonReactive) 01/24/21 11:50 Hepatitis C Antibody Non-reactive (NonReactive) 01/24/21 11:50 Blood Type O NEGATIVE 01/25/21 13:55 Antibody Screen Negative 01/25/21 13:55 Crossmatch See Detail 01/25/21 13:55 [place]/IV: Voiding Method Toilet Active Medications - Current Medications Current Medications: Generic Name Dose Route Start Last Admin Trade Name Freq PRN Reason Stop Dose Admin Acetaminophen 650 mg 01/23/21 17:40 Acetaminophen 325 Mg Tab PO Q4H PRN Pain MILD(1-3)/Fever >100.5/ESCAMILLA Calcitriol 0.5 mcg 01/26/21 10:00 01/30/21 09:16 Calcitriol 0.5 Mcg Cap PO 0.5 mcg QDAY SYDNIE Administration Calcium Acetate 1,334 mg 01/24/21 14:00 01/30/21 12:59 Calcium Acetate 667 Mg Cap PO 1,334 mg TID SYDNIE Administration Carvedilol 25 mg 01/29/21 10:00 01/30/21 09:16 Carvedilol 25 Mg Tab PO 25 mg BID SYDNIE Administration Hydralazine HCl 10 mg 01/23/21 18:00 01/30/21 00:44 Hydralazine 20 Mg/1 Ml Inj IV 10 mg Q3H PRN Administration Blood Pressure Hydralazine HCl 100 mg 01/29/21 17:37 01/30/21 12:59 Hydralazine 25 Mg Tab PO 100 mg Q8HR SYDNIE Administration Hydromorphone HCl 0.5 mg 01/23/21 17:40 01/24/21 15:19 Hydromorphone 1 Mg/1 Ml Inj IV 0.5 mg Q3H PRN Administration Pain , Severe (7-10) Sodium Chloride 100 mls @ 999 mls/hr 01/26/21 11:00 Nacl 0.9% IV BRIAN PRN Hypotension Metoclopramide HCl 10 mg 01/23/21 17:40 Metoclopramide 10 Mg/2 Ml Inj IV Q6H PRN Nausea And Vomiting Nifedipine 90 mg 01/29/21 17:37 01/30/21 09:16 Nifedipine Xl 60 Mg Tab PO 90 mg Q12HR SYDNIE Administration Ondansetron HCl 4 mg 01/23/21 17:40 01/26/21 09:19 Ondansetron 4 Mg/2 Ml Inj IV 4 mg Q3H PRN Administration Nausea And Vomiting Oxycodone/Acetaminophen 1 tab 01/23/21 17:40 01/30/21 00:44 Oxycodone /Acetaminophen 5-325mg Tab PO 1 tab Q6H PRN Administration Pain, Moderate (4-6) Sevelamer Carbonate 2,400 mg 01/25/21 11:30 01/30/21 12:53 Sevelamer Carbonate 800 Mg Tab PO 2,400 mg AC SYDNIE Administration Sodium Chloride 10 ml 01/23/21 22:00 01/30/21 09:16 Sodium Chloride 0.9% 10 Ml Flush Syringe IV 10 ml BID SYDNIE Administration Sodium Chloride 10 ml 01/23/21 17:40 01/29/21 18:29 Sodium Chloride 0.9% 10 Ml Flush Syringe IV 10 ml PRN PRN Administration LINE FLUSH Nutrition/Malnutrition Assess - Dietary Evaluation Nutrition/Malnutrition Findings: Nutrition Notes Start: 01/30/21 15:07 Freq: Status: Active Protocol: Document 01/30/21 15:07 KENIA (Rec: 01/30/21 15:22 KENIA [id number]) Nutrition Notes Need for Assessment generated from: LOS Initial or Follow up Assessment Current Diagnosis Acute Kidney Injury,CKD (stage V CKD),Hypertension Other Pertinent Diagnosis ESRD+HD, Pancreatitis/Colitis PUI, Leukocytosis. Current Diet Renal Diet (since L 01/25). Labs/Tests 01/30: BUN 26, Crea 11.2, Glu 101. Pertinent Medications 01/30: Vit D, others nutritionally unremarkable. Height 6 ft Weight 102.7 kg [place] Body Weight (kg) 80.90 BMI 30.7 Weight Status Obese Subjective/Other Information RD consult for LOS assessment. Pt now ESRD+HD. Pt's %PO intake of meals is Good (75%), according to ADL notes. Percent of energy/protein needs met: Prescribed Renal Diet provides for energy/protein needs (2, 072 Kcal/77 g) during LOS. Burn Absent Trauma Absent GI Symptoms None Food Allergy No Skin Integrity/Comment Clear, warm, dry. Current % PO Good (75-100%) Minimum of two criteria No #1 Nutrition Diagnosis No nutrition diagnosis at this time Comments: Pt now ESRD+HD. Pt's %PO intake of meals is Good (75%), according to ADL notes. Is patient on ventilator? No Is Patient Ambulatory and/or Out of Bed Yes [facility] [ [id number] [id number]] Calculation [facility]ations [facility] Additional Notes Protein: 1-1.2 g/Kg; 92-110 g/ day (from AdjBW + critical care). Fluids: 1 ml/Kcal, or as per MD. Nutrition Intervention Change Diet Order: Continue Renal Diet. Goal #1 Maintain body weight within +/ -3% of admission body weight during LOS. Goal #2 Reach and maintain acceptable chemistry lab values during LOS. Revisit per MD consult or patient Sign Off request: Additional Comments Continue monitoring food tolerance, %PO intake of meals , Hydration, and BM.
[2021-01-31 05:27] LABS: Calcium 8.7 mg/dL (8.4-10.2)
[2021-01-31] MEDS: hydrALAZINE 25 MG TAB PO SCH ×3 (05:27→22:50)
[2021-01-31] MEDS: SEVELAMER CARBONATE 800 MG TAB PO SCH ×3 (08:00→16:28)
[2021-01-31] MEDS: CALCIUM ACETATE 667 MG CAP PO SCH ×3 (08:50→23:13)
--- NOTE | 2021-01-31 09:47 | Progress Note ---
Assessment and Plan Assessment: Acute Renal Failure secondary to Ischemic ATN vs Prerenal vs CKD stage 5 from Hypertensive Nephrosclerosis Uncontrolled Hypertension Nausea/Vomiting/ Abdominal Pain Questionable Pancreatitis and Colitis Leukocytosis Hyponatremia Hyperphosphatemia Anemia Plan: Renal labs reviewed. Serum creatinine 13.8 today and prior was 11.2 Hemodialysis today for UF and clearance S/P perm-catheter placement on 01/25/21. Baseline serum creatinine unknown but likely has advanced CKD due to HTN Renal Ultrasound shows-Medical renal disease. No Hydronephrosis For further work-up, ordered ALAN, ANCA, Hep panel, C3, C4, Ch50, Anti-GBM, SPEP, serum free light chains-pending Urine lytes, protein and eosinophils-pending Hyperphosphatemia, Improving-On Calcium Acetate 1300 mg po TID Anemia-On Epogen 20,000 units TIW. Transfuse as needed Obtain daily weights Monitor I/O's daily Renally dose medications Avoid nephrotoxic agents Assess dialysis needs daily Case Management onboard for outpatient HD placement to [facility] Plan of care reviewed by Dr. Vaughn Subjective Date of service: 01/31/21 Principal diagnosis: Severe Renal Failure Interval history: Patient off floor. HD today. Objective - Vital Signs Vital signs: Vital Signs - 12hr 01/30/21 01/31/21 01/31/21 22:48 00:03 03:08 Temperature 98.7 F 98.6 F Pulse Rate 87 96 H Respiratory 18 14 Rate Blood Pressure 180/116 139/86 O2 Sat by Pulse 100 99 97 Oximetry 01/31/21 01/31/21 03:56 08:37 Temperature 98.4 F Pulse Rate 91 H 101 H Respiratory 18 Rate Blood Pressure 159/93 O2 Sat by Pulse 99 Oximetry - Lab 01/27/21 04:56 01/31/21 04:19 Most recent lab results Calcium 8.7 mg/dL (8.4-10.2) 01/31/21 04:19 Phosphorus 5.10 mg/dL (2.5-4.5) H 01/28/21 05:26 Magnesium 1.80 mg/dL (1.7-2.3) 01/28/21 05:26 Medications & Allergies - Medications Allergies/Adverse Reactions: Allergies No Known Allergies Allergy (Verified 01/23/21 10:18) Home Medications: Home Medications Medication Instructions Recorded Confirmed Last Taken Type No Known Home Medications [No 01/23/21 01/23/21 Unknown History Reported Home Medications] Active Medications: Generic Name Dose Route Start Last Admin Trade Name Freq PRN Reason Stop Dose Admin Acetaminophen 650 mg 01/23/21 17:40 Acetaminophen 325 Mg Tab PO Q4H PRN Pain MILD(1-3)/Fever >100.5/ESCAMILLA Calcitriol 0.5 mcg 01/26/21 10:00 01/30/21 09:16 Calcitriol 0.5 Mcg Cap PO 0.5 mcg QDAY SYDNIE Administration Calcium Acetate 1,334 mg 01/24/21 14:00 01/30/21 21:38 Calcium Acetate 667 Mg Cap PO 1,334 mg TID SYDNIE Administration Carvedilol 25 mg 01/29/21 10:00 01/30/21 21:38 Carvedilol 25 Mg Tab PO 25 mg BID SYDNIE Administration Hydralazine HCl 10 mg 01/23/21 18:00 01/30/21 00:44 Hydralazine 20 Mg/1 Ml Inj IV 10 mg Q3H PRN Administration Blood Pressure Hydralazine HCl 100 mg 01/29/21 17:37 01/31/21 05:27 Hydralazine 25 Mg Tab PO 100 mg Q8HR SYDNIE Administration Hydromorphone HCl 0.5 mg 01/23/21 17:40 01/24/21 15:19 Hydromorphone 1 Mg/1 Ml Inj IV 0.5 mg Q3H PRN Administration Pain , Severe (7-10) Sodium Chloride 100 mls @ 999 mls/hr 01/26/21 11:00 Nacl 0.9% IV BRIAN PRN Hypotension Metoclopramide HCl 10 mg 01/23/21 17:40 Metoclopramide 10 Mg/2 Ml Inj IV Q6H PRN Nausea And Vomiting Nifedipine 90 mg 01/29/21 17:37 01/30/21 21:38 Nifedipine Xl 60 Mg Tab PO 90 mg Q12HR SYDNIE Administration Ondansetron HCl 4 mg 01/23/21 17:40 01/26/21 09:19 Ondansetron 4 Mg/2 Ml Inj IV 4 mg Q3H PRN Administration Nausea And Vomiting Oxycodone/Acetaminophen 1 tab 01/23/21 17:40 01/30/21 21:38 Oxycodone /Acetaminophen 5-325mg Tab PO 1 tab Q6H PRN Administration Pain, Moderate (4-6) Sevelamer Carbonate 2,400 mg 01/25/21 11:30 01/30/21 18:10 Sevelamer Carbonate 800 Mg Tab PO 2,400 mg AC SYDNIE Administration Sodium Chloride 10 ml 01/23/21 22:00 01/30/21 21:46 Sodium Chloride 0.9% 10 Ml Flush Syringe IV 10 ml BID SYDNIE Administration Sodium Chloride 10 ml 01/23/21 17:40 01/29/21 18:29 Sodium Chloride 0.9% 10 Ml Flush Syringe IV 10 ml PRN PRN Administration LINE FLUSH
[2021-01-31] MEDS: hydrALAZINE 20 MG/1 ML INJ IV PRN (11:15)
[2021-01-31] MEDS: NIFEdipine XL 60 MG TAB PO SCH (11:38)
[2021-01-31] MEDS: CALCITRIOL 0.5 MCG CAP PO SCH (11:38)
[2021-01-31] MEDS: carvediloL 25 MG TAB PO SCH ×2 (11:40→22:51)
[2021-01-31 11:44] LABS: ANA Screen, IFA Negative (Negative)
[2021-01-31] MEDS: NIFEdipine XL 90 MG TAB PO SCH ×2 (12:04→22:28)
--- NOTE | 2021-01-31 16:28 | Progress Note ---
Assessment and Plan Assessment and plan: #Hypertensive emergency #Hypertension -uncontrolled -Continue Coreg, nifedipine and hydralazine -added clonidine due to persistent hypertension -Goal SBP less than 160 #Acute kidney injury -Permacath placed 01/25 -Likely secondary to ATN versus ESRD -Renally dose medications and avoid nephrotoxins -Nephrology following, assistance appreciated -Awaiting outpatient HD set up for safe discharge #Hyperphosphatemia -improving -Continue sevelamer #Hypocalcemia -Continue Calcitrol #Hyponatremia -resolved #Normocytic anemia -will transfuse for Hgb less than 7 -Epogen started with HD -Likely secondary to ESRD #Discharge planning -Pending establishment of outpatient HD -Patient uninsured, application sent for [facility] -Discussed with patient possibility receiving dialysis at [place] while awaiting confirmed outpatient HD chair, would like to discuss with father Disposition Plan: Pending safe discharge History Interval history: No acute events overnight. Patient has no pain or complaints at this time. Hospitalist Physical - Physical exam Narrative exam: GENERAL: Well-developed well-nourished. Lying in bed, no acute distress. CHEST/LUNGS: Permacath @ R chest. CTAB on room air HEART/CARDIOVASCULAR: RRR. No murmur, rubs or gallops appreciated. ABDOMEN: +BS. NT/ND. NEURO: No focal motor deficit. Follows all commands. EXTREMITIES: No cyanosis, clubbing or edema. PSYCH: Cooperative. - Constitutional Vitals: Temp Pulse Resp BP Pulse Ox 98.1 F 102 H 18 158/98 99 01/31/21 15:38 01/31/21 15:38 01/31/21 15:38 01/31/21 15:38 01/31/21 15:38 General appearance: Present: no acute distress, well-nourished, obese HEART Score - HEART Score EKG: Normal Age: < 45 Risk factors: 1-2 risk factors Troponin: < normal limit - Critical Actions Critical Actions: 0-3 pts:0.9-1.7%risk of adverse cardiac event.Candidate for discharge Results - Labs CBC & Chem 7: 01/27/21 04:56 01/31/21 04:19 Labs: Laboratory Last Values WBC 12.6 K/mm3 (4.5-11.0) H 01/27/21 04:56 RBC 2.27 M/mm3 (3.65-5.03) L 01/27/21 04:56 Hgb 7.0 gm/dl (11.8-15.2) L 01/27/21 04:56 Hct 21.4 % (35.5-45.6) L 01/27/21 04:56 MCV 94 fl (84-94) 01/27/21 04:56 MCH 31 pg (28-32) 01/27/21 04:56 MCHC 33 % (32-34) 01/27/21 04:56 RDW 18.7 % (13.2-15.2) H 01/27/21 04:56 Plt Count 307 K/mm3 (140-440) 01/27/21 04:56 Lymph % (Auto) 10.5 % (13.4-35.0) L 01/26/21 04:36 [place] % (Auto) 7.6 % (0.0-7.3) H 01/26/21 04:36 Eos % (Auto) 2.2 % (0.0-4.3) 01/26/21 04:36 Baso % (Auto) 0.5 % (0.0-1.8) 01/26/21 04:36 Lymph # (Auto) 1.3 K/mm3 (1.2-5.4) 01/26/21 04:36 [place] # (Auto) 0.9 K/mm3 (0.0-0.8) H 01/26/21 04:36 Eos # (Auto) 0.3 K/mm3 (0.0-0.4) 01/26/21 04:36 Baso # (Auto) 0.1 K/mm3 (0.0-0.1) 01/26/21 04:36 Add Manual Diff Complete 01/27/21 04:56 Total Counted 100 01/27/21 04:56 Seg Neutrophils % 79.2 % (40.0-70.0) H 01/26/21 04:36 Seg Neuts % (Manual) 91.0 % (40.0-70.0) H 01/27/21 04:56 Band Neutrophils % 2.0 % 01/27/21 04:56 Lymphocytes % (Manual) 4.0 % (13.4-35.0) L 01/27/21 04:56 Monocytes % (Manual) 3.0 % (0.0-7.3) 01/27/21 04:56 Eosinophils % (Manual) 3.0 % (0.0-4.3) 01/25/21 04:36 Nucleated RBC % Not Reportable 01/27/21 04:56 Seg Neutrophils # 9.5 K/mm3 (1.8-7.7) H 01/26/21 04:36 Seg Neutrophils # Man 11.5 K/mm3 (1.8-7.7) H 01/27/21 04:56 Band Neutrophils # 0.3 K/mm3 01/27/21 04:56 Lymphocytes # (Manual) 0.5 K/mm3 (1.2-5.4) L 01/27/21 04:56 Abs React Lymphs (Man) 0.0 K/mm3 01/27/21 04:56 Monocytes # (Manual) 0.4 K/mm3 (0.0-0.8) 01/27/21 04:56 Eosinophils # (Manual) 0.0 K/mm3 (0.0-0.4) 01/27/21 04:56 Basophils # (Manual) 0.0 K/mm3 (0.0-0.1) 01/27/21 04:56 Metamyelocytes # 0.0 K/mm3 01/27/21 04:56 Myelocytes # 0.0 K/mm3 01/27/21 04:56 Promyelocytes # 0.0 K/mm3 01/27/21 04:56 Blast Cells # 0.0 K/mm3 01/27/21 04:56 WBC Morphology Not Reportable 01/27/21 04:56 Hypersegmented Neuts Not Reportable 01/27/21 04:56 Hyposegmented Neuts Not Reportable 01/27/21 04:56 Hypogranular Neuts Not Reportable 01/27/21 04:56 Smudge Cells Not Reportable 01/27/21 04:56 Toxic Granulation Not Reportable 01/27/21 04:56 Toxic Vacuolation Not Reportable 01/27/21 04:56 Dohle Bodies Not Reportable 01/27/21 04:56 Pelger-Huet Anomaly Not Reportable 01/27/21 04:56 Jerry Rods Not Reportable 01/27/21 04:56 Platelet Estimate Not Reportable 01/27/21 04:56 Clumped Platelets Not Reportable 01/27/21 04:56 Plt Clumps, EDTA Not Reportable 01/27/21 04:56 Large Platelets Not Reportable 01/27/21 04:56 Giant Platelets Not Reportable 01/27/21 04:56 Platelet Satelliting Not Reportable 01/27/21 04:56 Plt Morphology Comment Not Reportable 01/27/21 04:56 RBC Morphology Not Reportable 01/27/21 04:56 Dimorphic RBCs Not Reportable 01/27/21 04:56 Polychromasia Not Reportable 01/27/21 04:56 Hypochromasia Not Reportable 01/27/21 04:56 Poikilocytosis Not Reportable 01/27/21 04:56 Anisocytosis 1+ 01/27/21 04:56 Microcytosis Not Reportable 01/27/21 04:56 Macrocytosis Not Reportable 01/27/21 04:56 Spherocytes Not Reportable 01/27/21 04:56 Pappenheimer Bodies Not Reportable 01/27/21 04:56 Sickle Cells Not Reportable 01/27/21 04:56 Target Cells Not Reportable 01/27/21 04:56 Tear Drop Cells Not Reportable 01/27/21 04:56 Ovalocytes Not Reportable 01/27/21 04:56 Helmet Cells Not Reportable 01/27/21 04:56 Christopher-Turkey Bodies Not Reportable 01/27/21 04:56 [place] Rings Not Reportable 01/27/21 04:56 Shayna Cells Not Reportable 01/27/21 04:56 Bite Cells Not Reportable 01/27/21 04:56 Crenated Cell Not Reportable 01/27/21 04:56 Elliptocytes Not Reportable 01/27/21 04:56 Acanthocytes (Spur) Not Reportable 01/27/21 04:56 Rouleaux Not Reportable 01/27/21 04:56 Hemoglobin C Crystals Not Reportable 01/27/21 04:56 Schistocytes Not Reportable 01/27/21 04:56 Malaria parasites Not Reportable 01/27/21 04:56 Humberto Bodies Not Reportable 01/27/21 04:56 Hem Pathologist Commnt No 01/27/21 04:56 Sodium 138 mmol/L (137-145) 01/31/21 04:19 Potassium 4.2 mmol/L (3.6-5.0) 01/31/21 04:19 Chloride 99.7 mmol/L (98-107) 01/31/21 04:19 Carbon Dioxide 23 mmol/L (22-30) 01/31/21 04:19 Anion Gap 20 mmol/L 01/31/21 04:19 BUN 37 mg/dL (9-20) H 01/31/21 04:19 Creatinine 13.8 mg/dL (0.8-1.3) H 01/31/21 04:19 Estimated GFR 5 ml/min 01/31/21 04:19 BUN/Creatinine Ratio 3 % 01/31/21 04:19 Glucose 103 mg/dL (75-100) H 01/31/21 04:19 Calcium 8.7 mg/dL (8.4-10.2) 01/31/21 04:19 Phosphorus 5.10 mg/dL (2.5-4.5) H 01/28/21 05:26 Magnesium 1.80 mg/dL (1.7-2.3) 01/28/21 05:26 Iron 41 ug/dL (49-181) L 01/25/21 04:36 TIBC 223 mcg/dL (250-450) L 01/25/21 04:36 Ferritin 152.0 ng/mL (30.0-300.0) 01/25/21 04:36 Total Bilirubin 0.40 mg/dL (0.1-1.2) 01/26/21 04:36 AST 5 units/L (5-40) 01/26/21 04:36 ALT 5 units/L (7-56) L 01/26/21 04:36 Alkaline Phosphatase 44 units/L (35-129) 01/26/21 04:36 Serum Total Protein 5.3 g/dL (6.1-8.1) L 01/25/21 04:36 Total Protein 5.1 g/dL (6.3-8.2) L D 01/26/21 04:36 Albumin 3.0 g/dL (3.9-5) L 01/26/21 04:36 Albumin/Globulin Ratio 1.4 % 01/26/21 04:36 Iwzah-4-Vsysiozrq 0.6 g/dL (0.2-0.3) H 01/25/21 04:36 Esagc-3-Unmmlqqbz 0.5 g/dL (0.5-0.9) 01/25/21 04:36 Beta Globulins 0.2 g/dL (0.2-0.5) 01/25/21 04:36 Gamma Globulins 0.7 g/dL (0.8-1.7) L 01/25/21 04:36 Abnorm Protein Band 1 see below 01/25/21 04:36 PEP Interpretation see below H 01/25/21 04:36 Lipase 131 units/L (13-60) H 01/23/21 13:43 PTH Intact 391.8 pg/mL (15-65) H 01/25/21 04:36 ALAN Screen Negative (Negative) 01/25/21 04:36 Proteinase 3 (PR3) Ab <1.0 AI (<1.0) 01/25/21 04:36 Myeloperoxidase Ab <1.0 AI (<1.0) 01/25/21 04:36 Complement C3 102 mg/dL (82-185) 01/25/21 04:36 Complement C4 25 mg/dL (15-53) 01/25/21 04:36 Tot Complement (CH50) >60 U/mL (31-60) H 01/25/21 04:36 Coronavirus (PCR) Negative (Negative) 01/27/21 10:01 Hepatitis A IgM Ab Non-reactive (NonReactive) 01/24/21 11:50 Hep Bs Antigen Nonreactive (Negative) 01/24/21 11:50 Hep B Core IgM Ab Non-reactive (NonReactive) 01/24/21 11:50 Hepatitis C Antibody Non-reactive (NonReactive) 01/24/21 11:50 Blood Type O NEGATIVE 01/25/21 13:55 Antibody Screen Negative 01/25/21 13:55 Crossmatch See Detail 01/25/21 13:55 Burton/IV: Voiding Method Toilet Active Medications - Current Medications Current Medications: Generic Name Dose Route Start Last Admin Trade Name Freq PRN Reason Stop Dose Admin Acetaminophen 650 mg 01/23/21 17:40 Acetaminophen 325 Mg Tab PO Q4H PRN Pain MILD(1-3)/Fever >100.5/ESCAMILLA Calcitriol 0.5 mcg 01/26/21 10:00 01/31/21 11:38 Calcitriol 0.5 Mcg Cap PO 0.5 mcg QDAY SYDNIE Administration Calcium Acetate 1,334 mg 01/24/21 14:00 01/31/21 14:11 Calcium Acetate 667 Mg Cap PO 1,334 mg TID SYDNIE Administration Carvedilol 25 mg 01/29/21 10:00 01/31/21 11:40 Carvedilol 25 Mg Tab PO 25 mg BID SYDNIE Administration Hydralazine HCl 10 mg 01/23/21 18:00 01/31/21 11:15 Hydralazine 20 Mg/1 Ml Inj IV 10 mg Q3H PRN Administration Blood Pressure Hydralazine HCl 100 mg 01/29/21 17:37 01/31/21 14:11 Hydralazine 25 Mg Tab PO 100 mg Q8HR SYDNIE Administration Hydromorphone HCl 0.5 mg 01/23/21 17:40 01/24/21 15:19 Hydromorphone 1 Mg/1 Ml Inj IV 0.5 mg Q3H PRN Administration Pain , Severe (7-10) Sodium Chloride 100 mls @ 999 mls/hr 01/26/21 11:00 Nacl 0.9% IV BRIAN PRN Hypotension Metoclopramide HCl 10 mg 01/23/21 17:40 Metoclopramide 10 Mg/2 Ml Inj IV Q6H PRN Nausea And Vomiting Nifedipine 90 mg 01/31/21 12:00 01/31/21 12:04 Nifedipine Xl 90 Mg Tab PO Not Given Q12HR [facility] Ondansetron HCl 4 mg 01/23/21 17:40 01/26/21 09:19 Ondansetron 4 Mg/2 Ml Inj IV 4 mg Q3H PRN Administration Nausea And Vomiting Oxycodone/Acetaminophen 1 tab 01/23/21 17:40 01/30/21 21:38 Oxycodone /Acetaminophen 5-325mg Tab PO 1 tab Q6H PRN Administration Pain, Moderate (4-6) Sevelamer Carbonate 2,400 mg 01/25/21 11:30 01/31/21 11:40 Sevelamer Carbonate 800 Mg Tab PO Not Given AC SYDNIE Sodium Chloride 10 ml 01/23/21 22:00 01/31/21 11:40 Sodium Chloride 0.9% 10 Ml Flush Syringe IV 10 ml BID SYDNIE Administration Sodium Chloride 10 ml 01/23/21 17:40 01/29/21 18:29 Sodium Chloride 0.9% 10 Ml Flush Syringe IV 10 ml PRN PRN Administration LINE FLUSH Nutrition/Malnutrition Assess - Dietary Evaluation Nutrition/Malnutrition Findings: Nutrition Notes Start: 01/30/21 15:07 Freq: Status: Active Protocol: Document 01/30/21 15:07 KENIA (Rec: 01/30/21 15:22 KENIA [id number]) Nutrition Notes Need for Assessment generated from: LOS Initial or Follow up Assessment Current Diagnosis Acute Kidney Injury,CKD (stage V CKD),Hypertension Other Pertinent Diagnosis ESRD+HD, Pancreatitis/Colitis PUI, Leukocytosis. Current Diet Renal Diet (since L 01/25). Labs/Tests 01/30: BUN 26, Crea 11.2, Glu 101. Pertinent Medications 01/30: Vit D, others nutritionally unremarkable. Height 6 ft Weight 102.7 kg [place] Body Weight (kg) 80.90 BMI 30.7 Weight Status Obese Subjective/Other Information RD consult for LOS assessment. Pt now ESRD+HD. Pt's %PO intake of meals is Good (75%), according to ADL notes. Percent of energy/protein needs met: Prescribed Renal Diet provides for energy/protein needs (2, 072 Kcal/77 g) during LOS. Burn Absent Trauma Absent GI Symptoms None Food Allergy No Skin Integrity/Comment Clear, warm, dry. Current % PO Good (75-100%) Minimum of two criteria No #1 Nutrition Diagnosis No nutrition diagnosis at this time Comments: Pt now ESRD+HD. Pt's %PO intake of meals is Good (75%), according to ADL notes. Is patient on ventilator? No Is Patient Ambulatory and/or Out of Bed Yes REE-(Edmond-St. Jeor-ambulatory/OOB) [ 2645.500 [id number]] Calculation Used for Recommendations Edmond-St Jeor Additional Notes Protein: 1-1.2 g/Kg; 92-110 g/ day (from AdjBW + critical care). Fluids: 1 ml/Kcal, or as per MD. Nutrition Intervention Change Diet Order: Continue Renal Diet. Goal #1 Maintain body weight within +/ -3% of admission body weight during LOS. Goal #2 Reach and maintain acceptable chemistry lab values during LOS. Revisit per MD consult or patient Sign Off request: Additional Comments Continue monitoring food tolerance, %PO intake of meals , Hydration, and BM.
[2021-01-31] MEDS: HYDROmorphone 1 MG/1 ML INJ IV PRN (22:46)
[2021-01-31] MEDS: cloNIDine 0.1 MG TAB PO SCH (22:49)
[2021-02-01] MEDS: oxyCODONE /ACETAMINOPHEN 5-325MG TAB PO PRN ×2 (02:22→18:22)
[2021-02-01] MEDS: hydrALAZINE 25 MG TAB PO SCH ×3 (06:00→22:56)
--- NOTE | 2021-02-01 08:02 | Progress Note ---
Assessment and Plan Assessment: ESRD on hemodialysis Uncontrolled Hypertension Nausea/Vomiting/ Abdominal Pain Questionable Pancreatitis and Colitis Leukocytosis Hyponatremia Hyperphosphatemia Anemia Plan: S/P Hemodialysis yesterday for UF and clearance No new labs noted for today. HD tomorrow. S/P perm-catheter placement on 01/25/21. Baseline serum creatinine unknown but likely has advanced CKD due to HTN Renal Ultrasound shows-Medical renal disease. No Hydronephrosis For further work-up, ordered ALAN, ANCA, Hep panel, C3, C4, Ch50, Anti-GBM, SPEP, serum free light chains So far Hep panel- negative, ALAN- negative, ANCA-negative, C3 and C4-normal, Ch50 was elevated >60. Urine lytes, protein and eosinophils-pending Hyperphosphatemia, Improving-On Calcium Acetate 1300 mg po TID Anemia-On Epogen 20,000 units TIW. Transfuse as needed Obtain daily weights Monitor I/O's daily Renally dose medications Avoid nephrotoxic agents Assess dialysis needs daily Case Management onboard for outpatient HD placement to [facility], in progress Plan of care reviewed by Dr. Vaughn Subjective Date of service: 02/01/21 Principal diagnosis: Severe Renal Failure Interval history: Patient seen lying in bed. Reviewed renal plan. Objective - Vital Signs Vital signs: Vital Signs - 12hr 01/31/21 01/31/21 01/31/21 22:00 22:38 22:46 Temperature 99.6 F Pulse Rate 96 H Pulse Rate [ 97 H From Monitor] Respiratory 18 18 18 Rate Blood Pressure 174/111 O2 Sat by Pulse 99 100 Oximetry 01/31/21 01/31/21 01/31/21 22:49 22:50 22:51 Temperature Pulse Rate 97 H 97 H 97 H Pulse Rate [ From Monitor] Respiratory Rate Blood Pressure 176/111 176/111 176/111 O2 Sat by Pulse Oximetry 02/01/21 02/01/21 02/01/21 03:02 03:50 06:00 Temperature 99.3 F Pulse Rate 96 H 91 H 89 Pulse Rate [ From Monitor] Respiratory 12 Rate Blood Pressure 148/88 146/88 O2 Sat by Pulse 98 Oximetry - General Appearance General appearance: well-developed, appears stated age EENT: ATNC, PERRL, hearing intact, vision intact Neck: no JVD, supple Respiratory: Present: Decreased Breath Sounds Cardiology: S1S2 Gastrointestinal: normoactive bowel sounds Integumentary: warm and dry Neurologic: alert and oriented x3 Musculoskeletal: other (No edema) - Lab 01/27/21 04:56 01/31/21 04:19 Most recent lab results Calcium 8.7 mg/dL (8.4-10.2) 01/31/21 04:19 Phosphorus 5.10 mg/dL (2.5-4.5) H 01/28/21 05:26 Magnesium 1.80 mg/dL (1.7-2.3) 01/28/21 05:26 Medications & Allergies - Medications Allergies/Adverse Reactions: Allergies No Known Allergies Allergy (Verified 01/23/21 10:18) Home Medications: Home Medications Medication Instructions Recorded Confirmed Last Taken Type No Known Home Medications [No 01/23/21 01/23/21 Unknown History Reported Home Medications] Active Medications: Generic Name Dose Route Start Last Admin Trade Name Freq PRN Reason Stop Dose Admin Acetaminophen 650 mg 01/23/21 17:40 Acetaminophen 325 Mg Tab PO Q4H PRN Pain MILD(1-3)/Fever >100.5/ESCAMILLA Calcitriol 0.5 mcg 01/26/21 10:00 01/31/21 11:38 Calcitriol 0.5 Mcg Cap PO 0.5 mcg QDAY SYDNIE Administration Calcium Acetate 1,334 mg 01/24/21 14:00 01/31/21 23:13 Calcium Acetate 667 Mg Cap PO 1,334 mg TID SYDNIE Administration Carvedilol 25 mg 01/29/21 10:00 01/31/21 22:51 Carvedilol 25 Mg Tab PO 25 mg BID SYDNIE Administration Clonidine HCl 0.1 mg 01/31/21 22:00 01/31/21 22:49 Clonidine 0.1 Mg Tab PO 0.1 mg Q12HR SYDNIE Administration Hydralazine HCl 10 mg 01/23/21 18:00 01/31/21 11:15 Hydralazine 20 Mg/1 Ml Inj IV 10 mg Q3H PRN Administration Blood Pressure Hydralazine HCl 100 mg 01/29/21 17:37 02/01/21 06:00 Hydralazine 25 Mg Tab PO 100 mg Q8HR SYDNIE Administration Hydromorphone HCl 0.5 mg 01/23/21 17:40 01/31/21 22:46 Hydromorphone 1 Mg/1 Ml Inj IV 0.5 mg Q3H PRN Administration Pain , Severe (7-10) Sodium Chloride 100 mls @ 999 mls/hr 01/26/21 11:00 Nacl 0.9% IV BRIAN PRN Hypotension Metoclopramide HCl 10 mg 01/23/21 17:40 Metoclopramide 10 Mg/2 Ml Inj IV Q6H PRN Nausea And Vomiting Nifedipine 90 mg 01/31/21 12:00 01/31/21 22:28 Nifedipine Xl 90 Mg Tab PO 90 mg Q12HR SYDNIE Administration Ondansetron HCl 4 mg 01/23/21 17:40 01/26/21 09:19 Ondansetron 4 Mg/2 Ml Inj IV 4 mg Q3H PRN Administration Nausea And Vomiting Oxycodone/Acetaminophen 1 tab 01/23/21 17:40 02/01/21 02:22 Oxycodone /Acetaminophen 5-325mg Tab PO 1 tab Q6H PRN Administration Pain, Moderate (4-6) Sevelamer Carbonate 2,400 mg 01/25/21 11:30 01/31/21 16:28 Sevelamer Carbonate 800 Mg Tab PO 2,400 mg AC SYDNIE Administration Sodium Chloride 10 ml 01/23/21 22:00 01/31/21 22:52 Sodium Chloride 0.9% 10 Ml Flush Syringe IV 10 ml BID SYDNIE Administration Sodium Chloride 10 ml 01/23/21 17:40 01/29/21 18:29 Sodium Chloride 0.9% 10 Ml Flush Syringe IV 10 ml PRN PRN Administration LINE FLUSH
[2021-02-01] MEDS: CALCIUM ACETATE 667 MG CAP PO SCH ×3 (09:36→22:56)
[2021-02-01] MEDS: CALCITRIOL 0.5 MCG CAP PO SCH (09:37)
[2021-02-01] MEDS: SEVELAMER CARBONATE 800 MG TAB PO SCH ×3 (09:37→18:18)
[2021-02-01] MEDS: carvediloL 25 MG TAB PO SCH ×2 (09:37→22:57)
[2021-02-01] MEDS: NIFEdipine XL 90 MG TAB PO SCH ×2 (09:38→22:56)
[2021-02-01] MEDS: cloNIDine 0.1 MG TAB PO SCH ×2 (09:38→22:56)
[2021-02-02] MEDS: hydrALAZINE 25 MG TAB PO SCH ×2 (06:28→13:55)
[2021-02-02 07:19] LABS: Calcium 8.7 mg/dL (8.4-10.2)
[2021-02-02] MEDS: CALCIUM ACETATE 667 MG CAP PO SCH ×2 (08:38→13:56)
[2021-02-02] MEDS: SEVELAMER CARBONATE 800 MG TAB PO SCH ×4 (08:38→17:23)
[2021-02-02] MEDS: oxyCODONE /ACETAMINOPHEN 5-325MG TAB PO PRN (08:44)
[2021-02-02] MEDS: CALCITRIOL 0.5 MCG CAP PO SCH (09:00)
[2021-02-02] MEDS: NIFEdipine XL 90 MG TAB PO SCH ×2 (09:01→13:55)
[2021-02-02] MEDS: carvediloL 25 MG TAB PO SCH ×2 (09:02→13:57)
[2021-02-02] MEDS: cloNIDine 0.1 MG TAB PO SCH ×2 (09:02→13:56)
[2021-02-02] MEDS: hydrALAZINE 20 MG/1 ML INJ IV PRN ×2 (11:15→17:20)
--- NOTE | 2021-02-02 14:09 | Discharge Summary ---
Providers - Providers Date of Admission: 01/23/21 16:45 Date of discharge: 02/01/21 Attending physician: NIDIA MORAES MD 01/23/21 14:56 Consult to Physician [CONS] Stat Comment: Consulting Provider: YENY TOLENTINO Physician Instructions: Reason For Exam: acute renal failure 01/23/21 17:38 Consult to Physician [CONS] Routine Comment: Consulting Provider: WEI SZYMANSKI Physician Instructions: Reason For Exam: ESRD/MOHINDER--Needs Vas cath for HD 01/24/21 11:30 Consult to Physician [CONS] Routine Comment: Consulting Provider: WEI SZYMANSKI Physician Instructions: Reason For Exam: Perm-cath placement 01/26/21 11:33 Consult to Case Management [CONS] Routine Services Needed at Discharge: Other Notified:: case management Additional Physician Instructions: Arrange outpatient hemodialysis to [facility] [address] [place] [address] 01/30/21 12:41 Consult to Case Management [CONS] Routine Services Needed at Discharge: Other Notified:: y Additional Physician Instructions: Please arrange outpatient HD at [facility] located at [address] [place] [id number] [phone] Hospitalization Condition: Serious Disposition: 01 HOME / SELF CARE / HOMELESS Core Measure Documentation - Palliative Care Palliative Care/ Comfort Measures: Not Applicable - Core Measures Any of the following diagnoses?: none Exam - Physical Exam Narrative exam: GENERAL: Well-developed well-nourished. Lying in bed, no acute distress. CHEST/LUNGS: Permacath @ R chest. CTAB on room air HEART/CARDIOVASCULAR: RRR. No murmur, rubs or gallops appreciated. ABDOMEN: +BS. NT/ND. NEURO: No focal motor deficit. Follows all commands. EXTREMITIES: No cyanosis, clubbing or edema. PSYCH: Cooperative. - Constitutional Vitals: Temp Pulse Resp BP Pulse Ox 98.9 F 87 18 183/121 98 02/02/21 06:58 02/02/21 13:56 02/02/21 06:58 02/02/21 13:56 02/02/21 10:00 Plan Care Plan Goals: These reports to [facility] on Mondays, Wednesdays and Fridays for dialysis until your chair is confirmed. Continue to follow-up with Fernando Vanessa at the number given to you by the social sciences professor, for updates on status of your HD chair. Please start taking the medications as prescribed. Follow up with: HORTENCIA RAMIREZ [Other] - 3-5 Days FRANCO PETER MD [Staff Physician] - 14 Days (For creation of [facility] dialysis access) Prescriptions: hydrALAZINE [Apresoline TAB] 100 mg PO Q8H 30 Days #90 tab cloNIDine [Catapres] 0.1 mg PO Q12HR 30 Days #60 tablet carvediloL [Coreg] 25 mg PO BID 30 Days #60 tablet Calcium Acetate [Phoslo] 1,334 mg PO TID 30 Days #270 capsule NIFEdipine XL [Procardia Xl] 90 mg PO Q12HR 30 Days #60 tablet Sevelamer Carbonate [Renvela] 2,400 mg PO AC 30 Days #270 tablet calcitrioL [Rocaltrol] 0.5 mcg PO QDAY 30 Days #30 capsule
--- NOTE | 2021-02-02 16:22 | Progress Note ---
Assessment and Plan Assessment: ESRD on hemodialysis Uncontrolled Hypertension Nausea/Vomiting/ Abdominal Pain Questionable Pancreatitis and Colitis Leukocytosis Hyponatremia Hyperphosphatemia Anemia Plan: S/p HD today for UF and clearance, UF removed 2L Assess dialysis needs daily S/p perm catheter placement on 01/25/21. Ok to discharge from nephrology standpoint Baseline serum creatinine unknown but likely has advanced CKD due to HTN Renal Ultrasound shows medical renal disease. No Hydronephrosis For further work-up, ordered ALAN, ANCA, Hep panel, C3, C4, Ch50, Anti-GBM, SPEP, serum free light chains So far Hep panel- negative, ALAN- negative, ANCA-negative, C3 and C4-normal, Ch50 was elevated >60. Urine lytes, protein and eosinophils-pending On Calcium Acetate 1300 mg po TID On Epogen for anemia management. Transfuse as needed Monitor I/O's daily Renally dose medications Case Management on board for outpatient HD placement to [facility] Plan of care reviewed by Dr. Vaughn Subjective Date of service: 02/02/21 Principal diagnosis: Severe Renal Failure Interval history: Pt seen in bed, denies shortness of breath, no acute distress Objective - Vital Signs Vital signs: Vital Signs - 12hr 02/02/21 02/02/21 02/02/21 06:58 10:00 10:15 Temperature 98.9 F 98.2 F Pulse Rate 92 H 84 88 Pulse Rate [ 92 H From Monitor] Respiratory 18 18 Rate Blood Pressure 161/96 176/103 178/102 O2 Sat by Pulse 99 98 Oximetry O2 Sat by Pulse 100 Oximetry [ Bilateral Throughout] 02/02/21 02/02/21 02/02/21 10:30 10:45 11:00 Temperature Pulse Rate 87 81 83 Pulse Rate [ From Monitor] Respiratory Rate Blood Pressure 179/109 195/116 190/114 O2 Sat by Pulse Oximetry O2 Sat by Pulse Oximetry [ Bilateral Throughout] 02/02/21 02/02/21 02/02/21 11:15 11:30 11:45 Temperature Pulse Rate 83 83 84 Pulse Rate [ From Monitor] Respiratory Rate Blood Pressure 194/118 194/118 196/112 O2 Sat by Pulse Oximetry O2 Sat by Pulse Oximetry [ Bilateral Throughout] 02/02/21 02/02/21 02/02/21 12:00 12:15 12:30 Temperature Pulse Rate 86 86 80 Pulse Rate [ From Monitor] Respiratory Rate Blood Pressure 188/120 174/120 197/132 O2 Sat by Pulse Oximetry O2 Sat by Pulse Oximetry [ Bilateral Throughout] 02/02/21 02/02/21 02/02/21 12:45 13:00 13:15 Temperature 98 F Pulse Rate 83 86 84 Pulse Rate [ From Monitor] Respiratory 18 Rate Blood Pressure 205/114 204/116 204/120 O2 Sat by Pulse Oximetry O2 Sat by Pulse 100 Oximetry [ Bilateral Throughout] 02/02/21 02/02/21 13:55 13:56 Temperature Pulse Rate 87 87 Pulse Rate [ From Monitor] Respiratory Rate Blood Pressure 183/121 183/121 O2 Sat by Pulse Oximetry O2 Sat by Pulse Oximetry [ Bilateral Throughout] - General Appearance General appearance: well-developed EENT: ATNC Neck: no JVD Respiratory: Present: Clear to Ascultation Cardiology: regular, S1S2, other (ACCESS: Right IJ Perm Catheter intact) Gastrointestinal: normoactive bowel sounds Integumentary: warm and dry Neurologic: alert and oriented x3 Musculoskeletal: other (no edema to BLE) Psychiatric: cooperative - Lab 01/27/21 04:56 02/02/21 05:54 Most recent lab results Calcium 8.7 mg/dL (8.4-10.2) 02/02/21 05:54 Phosphorus 5.10 mg/dL (2.5-4.5) H 01/28/21 05:26 Magnesium 1.80 mg/dL (1.7-2.3) 01/28/21 05:26 Medications & Allergies - Medications Allergies/Adverse Reactions: Allergies No Known Allergies Allergy (Verified 01/23/21 10:18) Home Medications: Home Medications Medication Instructions Recorded Confirmed Last Taken Type Calcium Acetate [Phoslo] 1,334 mg PO TID 30 Days #270 02/01/21 Unknown Rx capsule NIFEdipine XL [Procardia Xl] 90 mg PO Q12HR 30 Days #60 tablet 02/01/21 Unknown Rx Sevelamer Carbonate [Renvela] 2,400 mg PO AC 30 Days #270 tablet 02/01/21 Unknown Rx calcitrioL [Rocaltrol] 0.5 mcg PO QDAY 30 Days #30 capsule 02/01/21 Unknown Rx carvediloL [Coreg] 25 mg PO BID 30 Days #60 tablet 02/01/21 Unknown Rx cloNIDine [Catapres] 0.1 mg PO Q12HR 30 Days #60 tablet 02/01/21 Unknown Rx hydrALAZINE [Apresoline TAB] 100 mg PO Q8H 30 Days #90 tab 02/01/21 Unknown Rx Active Medications: Generic Name Dose Route Start Last Admin Trade Name Freq PRN Reason Stop Dose Admin Acetaminophen 650 mg 01/23/21 17:40 Acetaminophen 325 Mg Tab PO Q4H PRN Pain MILD(1-3)/Fever >100.5/ESCAMILLA Calcitriol 0.5 mcg 01/26/21 10:00 02/02/21 09:00 Calcitriol 0.5 Mcg Cap PO 0.5 mcg QDAY SYDNIE Administration Calcium Acetate 1,334 mg 01/24/21 14:00 02/02/21 13:56 Calcium Acetate 667 Mg Cap PO 1,334 mg TID SYDNIE Administration Carvedilol 25 mg 01/29/21 10:00 02/02/21 13:57 Carvedilol 25 Mg Tab PO 25 mg BID SYDNIE Administration Clonidine HCl 0.1 mg 01/31/21 22:00 02/02/21 13:56 Clonidine 0.1 Mg Tab PO 0.1 mg Q12HR SYDNIE Administration Hydralazine HCl 10 mg 01/23/21 18:00 02/02/21 11:15 Hydralazine 20 Mg/1 Ml Inj IV 10 mg Q3H PRN Administration Blood Pressure Hydralazine HCl 100 mg 01/29/21 17:37 02/02/21 13:55 Hydralazine 25 Mg Tab PO 100 mg Q8HR SYDNIE Administration Hydromorphone HCl 0.5 mg 01/23/21 17:40 01/31/21 22:46 Hydromorphone 1 Mg/1 Ml Inj IV 0.5 mg Q3H PRN Administration Pain , Severe (7-10) Sodium Chloride 100 mls @ 999 mls/hr 01/26/21 11:00 Nacl 0.9% IV BRIAN PRN Hypotension Metoclopramide HCl 10 mg 01/23/21 17:40 Metoclopramide 10 Mg/2 Ml Inj IV Q6H PRN Nausea And Vomiting Nifedipine 90 mg 01/31/21 12:00 02/02/21 13:55 Nifedipine Xl 90 Mg Tab PO 90 mg Q12HR SYDNIE Administration Ondansetron HCl 4 mg 01/23/21 17:40 01/26/21 09:19 Ondansetron 4 Mg/2 Ml Inj IV 4 mg Q3H PRN Administration Nausea And Vomiting Oxycodone/Acetaminophen 1 tab 01/23/21 17:40 02/02/21 08:44 Oxycodone /Acetaminophen 5-325mg Tab PO 1 tab Q6H PRN Administration Pain, Moderate (4-6) Sevelamer Carbonate 2,400 mg 01/25/21 11:30 02/02/21 13:57 Sevelamer Carbonate 800 Mg Tab PO 2,400 mg AC SYDNIE Administration Sodium Chloride 10 ml 01/23/21 22:00 02/02/21 09:01 Sodium Chloride 0.9% 10 Ml Flush Syringe IV 10 ml BID SYDNIE Administration Sodium Chloride 10 ml 01/23/21 17:40 01/29/21 18:29 Sodium Chloride 0.9% 10 Ml Flush Syringe IV 10 ml PRN PRN Administration LINE FLUSH
[2021-02-02 19:21] VITALS: BP 159/99
== END 2021-02-02 19:45 | disposition home or self-care (01) | DRG 673 ==
LOC: ED 10:13 → 4A 16:45
PROVIDERS: ADMIT Internal Medicine; ATTEND Student in an Organized Health Care Education/Training Program
PROC: 0JH63XZ Insertion of Tunneled Vascular Access Device into Chest Subcutaneous Tissue and Fascia, Percutaneous Approach (ICD-10-PCS; principal; 2021-01-25)
PROC: 02HV33Z Insertion of Infusion Device into Superior Vena Cava, Percutaneous Approach (ICD-10-PCS; 2021-01-25)
PROC: B5181ZA Fluoroscopy of Superior Vena Cava using Low Osmolar Contrast, Guidance (ICD-10-PCS; 2021-01-25)
PROC: B548ZZA Ultrasonography of Superior Vena Cava, Guidance (ICD-10-PCS; 2021-01-25)
PROC: 5A1D70Z Performance of Urinary Filtration, Intermittent, Less than 6 Hours Per Day (ICD-10-PCS; 2021-01-25)
PROC: 5A1D70Z Performance of Urinary Filtration, Intermittent, Less than 6 Hours Per Day (ICD-10-PCS; 2021-01-26)
PROC: 5A1D70Z Performance of Urinary Filtration, Intermittent, Less than 6 Hours Per Day (ICD-10-PCS; 2021-01-27)
PROC: 5A1D70Z Performance of Urinary Filtration, Intermittent, Less than 6 Hours Per Day (ICD-10-PCS; 2021-01-29)
PROC: 5A1D70Z Performance of Urinary Filtration, Intermittent, Less than 6 Hours Per Day (ICD-10-PCS; 2021-01-31)
PROC: 5A1D70Z Performance of Urinary Filtration, Intermittent, Less than 6 Hours Per Day (ICD-10-PCS; 2021-02-02)
DX: N17.0 Acute kidney failure with tubular necrosis (principal); K85.90 Acute pancreatitis without necrosis or infection, unspecified; J18.9 Pneumonia, unspecified organism; I16.1 Hypertensive emergency; E87.1 Hypo-osmolality and hyponatremia; D64.9 Anemia, unspecified; D72.829 Elevated white blood cell count, unspecified; E83.51 Hypocalcemia; E83.39 Other disorders of phosphorus metabolism; Z82.49 Family history of ischemic heart disease and other diseases of the circulatory system; E66.9 Obesity, unspecified; Z20.822 Contact with and (suspected) exposure to COVID-19; Z68.30 Body mass index [BMI] 30.0-30.9, adult
CPT/HCPCS: 36415; 36558; 70450; 71046; 74176; 76770; 77001; 80048; 80053; 80074; 82728; 83520; 83550; 83690; 83735; 83970; 84100; 84165; 85007; 85025; 86021; 86038; 86160; 86162; 86850; 86900; 86901; 86920; 93970; 99291; G0378; J3490; Q0162; C1750; J0330; J0360; J0610; J0690; J0696; J1170; J1644; J2250; J2405; J3010; J7030; J7040; P9016; U0003

== ENCOUNTER 2021-02-03 14:08 | Emergency (ER) | payer SELFPAY ==
[2021-02-03 15:07] VITALS: BP 196/137
[2021-02-03] MEDS ORDERED: cloNIDine 0.1 MG TAB PO STA (15:18)
[2021-02-03] MEDS ORDERED: hydrALAZINE 100 MG TAB PO STA (15:18)
[2021-02-03] MEDS ORDERED: carvediloL 25 MG TAB PO STA (15:18)
[2021-02-03] MEDS ORDERED: CALCITRIOL 0.5 MCG CAP PO STA (15:23)
[2021-02-03] MEDS ORDERED: CALCIUM ACETATE 667 MG CAP PO STA (15:24)
[2021-02-03] MEDS ORDERED: NIFEdipine XL 90 MG TAB PO STA (15:25)
--- NOTE | 2021-02-03 15:28 | Emergency Department Report ---
ED General Adult HPI - General Chief complaint: High BP Stated complaint: medical clearance Time Seen by Provider: 02/03/21 15:12 Source: patient, RN notes reviewed, old records reviewed Mode of arrival: Ambulatory Limitations: No Limitations - History of Present Illness Initial comments: The patient was evaluated in the emergency department for symptoms described in the history of present illness. He/she was evaluated in the context of the global COVID-19 pandemic, which necessitated consideration that the patient might be at risk for infection with the virus that causes COVID-19. Institutional protocols and algorithms that pertain to the evaluation of patients at risk for COVID-19 are in a state of rapid change based on information released by regulatory bodies including the CDC and federal and state organizations. These policies and algorithms were followed during the patient's care in the emergency department. Please note that these policies, procedures and recommendations changed on a rapid basis. The patient is a pleasant 30-year-old gentleman. The patient was discharged from the hospital yesterday. Discharge diagnoses include end-stage renal disease on hemodialysis, Friday, Friday, Friday, last hemodialysis session was yesterday. Also has a history of uncontrolled hypertension, and is prescribed multiple antihypertensive medications, including hydralazine, clonidine, carvedilol, nifedipine, calcitriol. Please see his discharge summary from yesterday for the complete details of his past medical care. He presents to the ER today with a request for his blood pressure medications. He reports that secondary to late discharged yesterday evening, and holiday today, he is not able to take any of his blood pressure medication. He denies additional injuries and complaints. He states that he knows where he will go for his hemodialysis on Friday, in a day and a half. He denies physical pain at this time. Severity scale (0 -10): 6 Associated Symptoms: denies other symptoms - Related Data Previous Rx's Medication Instructions Recorded Last Taken Type Calcium Acetate [Phoslo] 1,334 mg PO TID 30 Days #270 02/01/21 Unknown Rx capsule NIFEdipine XL [Procardia Xl] 90 mg PO Q12HR 30 Days #60 tablet 02/01/21 Unknown Rx Sevelamer Carbonate [Renvela] 2,400 mg PO AC 30 Days #270 tablet 02/01/21 Unknown Rx calcitrioL [Rocaltrol] 0.5 mcg PO QDAY 30 Days #30 capsule 12/23/21 Unknown Rx carvediloL [Coreg] 25 mg PO BID 30 Days #60 tablet 02/01/21 Unknown Rx cloNIDine [Catapres] 0.1 mg PO Q12HR 30 Days #60 tablet 02/01/21 Unknown Rx hydrALAZINE [Apresoline TAB] 100 mg PO Q8H 30 Days #90 tab 02/01/21 Unknown Rx Allergies Allergy/AdvReac Type Severity Reaction Status Date / Time No Known Allergies Allergy Verified 02/03/21 15:00 ED Review of Systems ROS: Stated complaint: medical clearance Other details as noted in HPI Constitutional: see HPI Eyes: as per HPI ENT: as per HPI Respiratory: see HPI Cardiovascular: as per HPI Endocrine: see HPI Gastrointestinal: as per HPI Genitourinary: as per HPI Musculoskeletal: as per HPI Skin: as per HPI Neurological: as per HPI Psychiatric: as per HPI Hematological/Lymphatic: as per HPI ED Past Medical Hx - Past Medical History Hx Hypertension: Yes (doesn't take meds) Hx HIV: No - Social History Smoking Status: Never Smoker - Medications Home Medications: Home Medications Medication Instructions Recorded Confirmed Last Taken Type Calcium Acetate [Phoslo] 1,334 mg PO TID 30 Days #270 02/01/21 Unknown Rx capsule NIFEdipine XL [Procardia Xl] 90 mg PO Q12HR 30 Days #60 tablet 02/01/21 Unknown Rx Sevelamer Carbonate [Renvela] 2,400 mg PO AC 30 Days #270 tablet 02/01/21 Unknown Rx calcitrioL [Rocaltrol] 0.5 mcg PO QDAY 30 Days #30 capsule 02/01/21 Unknown Rx carvediloL [Coreg] 25 mg PO BID 30 Days #60 tablet 02/01/21 Unknown Rx cloNIDine [Catapres] 0.1 mg PO Q12HR 30 Days #60 tablet 02/01/21 Unknown Rx hydrALAZINE [Apresoline TAB] 100 mg PO Q8H 30 Days #90 tab 02/01/21 Unknown Rx ED Physical Exam - General Limitations: No Limitations General appearance: alert, in no apparent distress - Head Head exam: Present: atraumatic, normocephalic - Eye Eye exam: Present: normal appearance, EOMI. Absent: nystagmus - ENT ENT exam: Present: normal exam, normal orophraynx, mucous membranes moist, normal external ear exam - Neck Neck exam: Present: normal inspection, full ROM. Absent: tenderness, meningismus - Respiratory Respiratory exam: Present: normal lung sounds bilaterally. Absent: respiratory distress, wheezes, rales, rhonchi, stridor, decreased breath sounds - Cardiovascular Cardiovascular Exam: Present: regular rate, normal rhythm, normal heart sounds. Absent: bradycardia, tachycardia, irregular rhythm, systolic murmur, diastolic murmur, rubs, gallop - GI/Abdominal GI/Abdominal exam: Present: soft. Absent: distended, tenderness, guarding, rebound, rigid, pulsatile mass - Rectal Rectal exam: Present: deferred - Extremities Exam Extremities exam: Present: normal inspection, full ROM, other (2+ pulses noted in the bilateral upper and lower extremities. There is no palpable cord. negative Homans sign. Muscular compartments are soft. The pelvis is stable.). Absent: pedal edema, calf tenderness - Back Exam Back exam: Present: normal inspection, full ROM. Absent: tenderness, CVA tenderness (R), CVA tenderness (L), paraspinal tenderness, vertebral tenderness - Neurological Exam Neurological exam: Present: alert, oriented X3, normal gait, other (No facial droop. Tongue midline. Extraocular movements intact bilaterally. Facial sensation intact to light touch in V1, V2, V3 distribution bilaterally. 5 and a 5 strength in 4 extremities. Sensation intact to light touch in 4 extremities.). Absent: motor sensory deficit - Psychiatric Psychiatric exam: Present: normal affect, normal mood - Skin Skin exam: Present: warm, dry, intact, normal color, other (There is a right- sided thoracic vascular access catheter noted, without redness, pus or streaking.). Absent: rash ED Course Vital Signs 02/03/21 15:06 Temperature 99.1 F Pulse Rate 89 Respiratory 20 Rate Blood Pressure 196/137 [Right] O2 Sat by Pulse 100 Oximetry - Pulse Oximetry Interpretation Digit-Finger Initial Pulse Oximetry Readin O2 Sat by Pulse Oximetry: 98 Actions Taken: none ED Medical Decision Making - Lab Data Vital Signs 02/03/21 15:06 Temperature 99.1 F Pulse Rate 89 Respiratory 20 Rate Blood Pressure 196/137 [Right] O2 Sat by Pulse 100 Oximetry - Medical Decision Making Differential diagnosis, including but not limited to: Hypertension, administration of medication, encounter for medical screening examination, history of end-stage renal disease Assessment and plan: 30-year-old gentleman, who was afebrile, with reassuring vital signs without any acute distress, chronically hypertensive, not acutely decompensated, essentially presenting with a request for his typical outpatient antihypertensive therapies, unable to obtain prescriptions today secondary to the [place] holiday, and reports inability to obtain prescriptions yesterday, secondary to what he reports is a discharge late for him. It is unclear if the patient went to a 24-hour pharmacy. In any event, we are able to give the patient his blood pressure medications as a one-time dose here while in the emergency room. We have had multiple patients presents to this emergency today with this particular scenario, i.e., inability to obtain outpatient prescription secondary to pharmacies being closed. This has already been discussed with the head of pharmacy, as well as our hothouse worker. The pharmacy have advised that since they are not an outpatient pharmacy, they are not able to dispense patients with a supply of medications to go home with. Therefore, the patient is strongly encouraged to present to a 24-hour pharmacy as soon as is feasible. He does not appear to be emergently decompensated at this time, and he is suitable to follow-up with an outpatient primary care doctor. On my final assessment, the patient has headphones in, he is looking on his cellular phone, his lung sounds are clear, he is saturating 100% on room air, and he is not in any acute distress Critical care attestation.: If time is entered above; I have spent that time in minutes in the direct care of this critically ill patient, excluding procedure time. ED Disposition Clinical Impression: Hypertension Disposition: 01 HOME / SELF CARE / HOMELESS Is pt being admited?: No Does the pt Need Aspirin: No Condition: Good Instructions: Hypertension (ED), Hypertension, Adult Additional Instructions: Please continue current outpatient medications Please follow-up as soon as possible with an outpatient pharmacy. Please follow- up with your outpatient primary care doctor or relocation services specialist within the next 3 to 5 days. Please make certain to follow-up on Friday as scheduled for your outpatient hemodialysis. Patient is found to have high blood pressure today, which is likely chronic. Long-term complications of hypertension include stroke, heart attack, disability, paralysis, loss of quality of life. It is therefore very important to remain compliant with her antihypertensive therapy. Please return to the emergency room right away with new pain, worsened pain, migration of pain, projectile vomiting, change in mental status, confusion, inability tolerate liquid feeds, new, worsened or different symptoms not present on the initial emergency room evaluation Referrals: YENY TOLENTINO MD [Staff Physician] - 3-5 Days
== END 2021-02-03 15:59 | disposition home or self-care (01) ==
LOC: ED 14:08
DX: I12.0 Hypertensive chronic kidney disease with stage 5 chronic kidney disease or end stage renal disease (principal); N18.6 End stage renal disease; Z99.2 Dependence on renal dialysis
CPT/HCPCS: 99282

== ENCOUNTER 2021-09-04 06:13 | Day surgery (SDC) | payer MEDICARE ==
[~2021-09-04 06:13] MED LIST: ceFAZolin/STERILE WATER 2 GM/20 ML SYRINGE IV NR
[2021-09-04] MEDS ORDERED: SODIUM CHLORIDE 0.9% 1000 ML 1,000 ML ONE (06:29)
[2021-09-04] MEDS ORDERED: propofoL 200 MG/20 ML VIAL IV ONE ×2 (07:07→09:01)
[2021-09-04] MEDS ORDERED: ONDANSETRON 4 MG/2 ML INJ ONE (07:07)
[2021-09-04] MEDS ORDERED: dexAMETHasone 20 MG/5 ML VIAL ONE (07:07)
[2021-09-04] MEDS ORDERED: HYDROmorphone 0.5 MG/0.5 ML INJ ONE (07:07)
[2021-09-04] MEDS ORDERED: LIDOCAINE MPF (2%) 20 MG/1 ML VIAL 5 ML ONE (07:07)
[2021-09-04] MEDS ORDERED: ePHEDrine SULFATE 50 MG/1 ML INJ ONE ×2 (07:07→08:52)
[2021-09-04 07:15] LABS: Hematocrit 34.4 % (35.5-45.6); Hemoglobin 11.5 gm/dl (11.8-15.2); Mean Corpuscular HGB Conc 33 % (32-34); Mean Corpuscular Volume 96 fl (84-94); Platelet Count 273 K/mm3 (140-440); Red Blood Count 3.57 M/mm3 (3.65-5.03); Red Cell Distribution Width 17.4 % (13.2-15.2)
[2021-09-04] MEDS ORDERED: LIDOCAINE (1%) 10 MG/1 ML VIAL 20 ML MDV ONE (07:31)
[2021-09-04] MEDS ORDERED: PROTAMINE SULFATE 50 MG/5 ML INJ ONE (07:31)
--- NOTE | 2021-09-04 07:31 | Anesthesia Consultation ---
Anesthesia Consult and Med Hx Date of service: 09/04/21 - Airway Anesthetic Teeth Evaluation: Good ROM Head & Neck: Adequate Mental/Hyoid Distance: Adequate Mallampati Class: Class I Intubation Access Assessment: Probably Good - Pulmonary Exam CTA: Yes - Cardiac Exam Cardiac Exam: RRR - Pre-Operative Health Status ASA Pre-Surgery Classification: ASA4 Proposed Anesthetic Plan: General, MAC - Pulmonary Hx Smoking: No Hx Sleep Apnea: No - Cardiovascular System Hx Hypertension: Yes (Took all four medications this morning. ) Hx Coronary Artery Disease: No Hx Cardia Arrhythmia: No - Central Nervous System Hx Neuromuscular Disorder: No Hx Psychiatric Problems: No - Gastrointestinal Hx Gastroesophageal Reflux Disease: No - Endocrine Hx Renal Disease: Yes Hx End Stage Renal Disease: Yes (HD yesterday) Hx Insulin Dependent Diabetes: No Hx Non-Insulin Dependent Diabetes: No Hx Thyroid Disease: No - Hematic Hx Anemia: Yes (hgb 11.5 today) - Other Systems Hx Alcohol Use: No Hx Substance Use: No Hx Cancer: No - Additional Comments Anesthesia Medical History Comments: No GAC. No FHAC.
[2021-09-04] MEDS ORDERED: rifAMPin 600 MG VIAL ONE (07:32)
[2021-09-04] MEDS ORDERED: PAPAVERINE 60 MG/2 ML INJ SDV ONE (07:32)
[2021-09-04] MEDS ORDERED: BUPIVACAINE/PF (0.5%) 5 MG/1 ML 30 ML VIAL INFILTRATI ONE (07:32)
[2021-09-04] MEDS ORDERED: SODIUM CHLORIDE P/F VIAL 10 ML 0 ML ONE (07:32)
[2021-09-04] MEDS ORDERED: HEPARIN 10,000 UNITS/10 ML VIAL ONE (07:32)
--- NOTE | 2021-09-04 07:32 | Anesthesia Day of Surgery ---
Anesthesia Day of Surgery - Day of Surgery Patient Examined: Yes Patient H&P Reviewed: Yes Patient is NPO: Yes Miguel's Test: N/A
[2021-09-04] MEDS ORDERED: SODIUM CHLORIDE 0.9% 500 ML 500 ML ONE (07:33)
[2021-09-04] MEDS ORDERED: SODIUM CHLORIDE 0.9% 250ML 250 ML ONE (07:33)
[2021-09-04 07:51] LABS: Calcium 9.5 mg/dL (8.4-10.2)
[2021-09-04] MEDS ORDERED: fentaNYL 100 MCG/2 ML INJ ONE (08:32)
[2021-09-04] MEDS ORDERED: SODIUM CHLORIDE 0.9% 1000 ML 1,000 ML IV SCH (09:00)
[2021-09-04] MEDS ORDERED: MIDAZOLAM 2 MG/2 ML INJ ONE (09:07)
[2021-09-04] MEDS ORDERED: HEPARIN 10,000 UNITS/10 ML VIAL IV ONE (09:28)
[2021-09-04] MEDS ORDERED: SODIUM CHLORIDE 0.9% IRR 1,500 ML BOTTLE IR ONE (09:29)
--- NOTE | 2021-09-04 09:58 | Short Stay Summary ---
Short Stay Documentation Date of service: 09/04/21 Narrative H&P: See H&P - History H&P: obtained from office - Allergies and Medications Current Medications: Allergies No Known Allergies Allergy (Verified 08/30/21 15:17) Home Medications Medication Instructions Recorded Confirmed Last Taken Type carvediloL [Coreg] 25 mg PO BID 30 Days #60 tablet 02/01/21 08/30/21 Unknown Rx Cholecalciferol (Vitamin D3) 50 mcg PO QDAY 08/30/21 08/30/21 Unknown History [Vitamin D3] Cyanocobalamin (Vitamin B-12) 1,000 mcg PO QDAY 08/30/21 08/30/21 Unknown History [Vitamin B12] NIFEdipine XL [Procardia Xl] 90 mg PO QDAY 08/30/21 08/30/21 Unknown History cloNIDine [Catapres] 0.1 mg PO TID 08/30/21 08/30/21 Unknown History hydrALAZINE [Apresoline TAB] 100 mg PO TID 08/30/21 08/30/21 Unknown History Active Medications Cefazolin Sodium (Cefazolin/Sterile Water 2 Gm/20 Ml Syringe) 2 gm IV PREOP NR Stop: 09/04/21 23:59 Sodium Chloride (Nacl 0.9% 1000 Ml) 1,000 mls @ 25 mls/hr IV DIRECT SYDNIE Last Admin: 09/04/21 07:55 Dose: 25 mls/hr - Brief post op/procedure progress note Date of procedure: 09/04/21 Pre-op diagnosis: End-Stage Renal Disease Post-op diagnosis: same Procedure: Creation of Left Radiocephalic (CiminoBrescia) Fistula Anesthesia: GETA Surgeon: FRANCO PETER Estimated blood loss: minimal Pathology: none Condition: stable - Disposition Condition at discharge: Good Disposition: 01 HOME / SELF CARE / HOMELESS Short Stay Discharge Plan Activity: other (No heavy lifting with left arm for 2 weeks. Use stress ball with left hand as often as possible.) Wound: open to air, keep clean and dry, other (Okay to wash the left arm incision with soap and water but do not soak in water for 2 weeks.) Follow up with: FRANCO PETER MD [Staff Physician] - 14 Days Prescriptions: HYDROcodone/APAP 7.5-325 [[place] 7.5/325] 1 each PO Q6HR PRN #30 tablet PRN Reason: Pain
--- NOTE | 2021-09-04 10:00 | Operative Report ---
Operative Report Operative Report: Date of procedure: 09/04/2021 Pre-operative diagnosis: End-Stage Renal Disease Post-operative diagnosis: End-Stage Renal Disease Procedure(s): Creation of Left Radiocephalic (CiminoBrescia) Fistula Surgeon: Allen Liz MD Homeland Security Program Specialist: None Anesthesia: General Endotracheal Anesthesia EBL: Minimal Counts: Correct Complications: None Condition: Stable Findings: Successful creation of left arm AV fistula with palpable thrill at the completion of the case. Specimen: None Indication: The patient is a 30-year-old male with a history of end-stage renal disease who is currently on hemodialysis through a right internal jugular permacath. He is in need of permanent dialysis access and was found to have adequate vein for creation of a left arteriovenous fistula. He was given the risk, benefits, and alternative procedures and consented to the procedure. Description of Procedure: The patient was brought to the operating room and laid in supine position. A timeout was performed and then general endotracheal anesthesia was achieved. His left arm was then prepped and draped in normal sterile fashion. A longitudinal incision was then created on the distal wrist, centered between the cephalic vein and the radial artery. The dissection was carried down to the radial artery using sharp dissection and the radial artery was dissected circumferentially and controlled with vessel loops. The cephalic vein was then dissected circumferentially, ligating side branches with 3-0 silk ties and dividing them. The cephalic vein was then divided distally transpose to the radial artery. A 3 Dari was then advanced through the cephalic vein proximally to ensure patency. The vein was then flushed with heparinized saline and control of the bulldog clamp. The patient was systemically heparinized with 3000 units of heparin IV and the radial artery clamped with DeBakey clamps. An arteriotomy was then created using an 11 blade and Witt scissors. An end-to-side anastomosis was created between the cephalic vein and the radial artery using a single 6-0 Prolene in running fashion. Prior to completing the anastomosis I flashed the artery both retrograde and antegrade and advanced a 3 Dari into the proximal portion of the artery to break the spasm. I then completed the anastomosis and removed all clamps allowing flow into the fistula which had a palpable thrill. Hemostasis within the wound was achieved with a combination of manual pressure and Quick Clot. Once hemostasis was achieved the wounds were closed in 2 layers using a 3-0 Vicryl in running fashion in the deep dermal layers, 4-0 Monocryl in a running fashion the subcuticular layer, and Dermabond as a dressing. The patient tolerated the procedure well. All sponge, needle, and instrument counts were correct. The patient was taken to the recovery area in stable condition.
--- NOTE | 2021-09-04 10:46 | Post Anesthesia Evaluation ---
- Post Anesthesia Evaluation Patient Participated: Yes Airway Patent: Yes Stable Respiratory Function: Yes Nausea/Vomiting: No Temp > 96.8F: Yes Pain Manageable: Yes Adequeate Hydration: Yes Anesthesia Complications: No Block Receding Appropriately: Not Applicable Patient on Ventilator: No
[2021-09-04] MEDS ORDERED: hydrALAZINE 20 MG/1 ML INJ ONE (11:10)
[2021-09-04] MEDS ORDERED: hydrALAZINE 20 MG/1 ML INJ IV ONE (11:12)
[2021-09-04 11:46] VITALS: BP 151/97
== END 2021-09-04 12:05 | disposition home or self-care (01) ==
LOC: OR 06:13
PROVIDERS: ATTEND Surgery Vascular Surgery
DX: I12.0 Hypertensive chronic kidney disease with stage 5 chronic kidney disease or end stage renal disease (principal); N18.6 End stage renal disease; D64.9 Anemia, unspecified; Z99.2 Dependence on renal dialysis; Z79.899 Other long term (current) drug therapy; Z98.890 Other specified postprocedural states
CPT/HCPCS: 36415; 36821; 80048; 85027; J0360; J0690; J1100; J1170; J1644; J2250; J2405; J2704; J3010; J3490; J7030; J7040; J7050; J2440; J2720